=== PATIENT | male | born 1955 | race Caucasian/White ===

== ENCOUNTER 2017-06-09 13:00 | Outpatient (RCR) | payer OTHER, SELFPAY ==
[2017-06-02 13:09] VITALS: BP 121/64; PULSE 57; RESP 18; TEMP 36.7; BMI 31.1
--- NOTE | 2017-06-02 14:04 | PCM.WC.PN ---
(1) Non-pressure chronic ulcer of other part of right foot with fat layer exposed Status: Acute Current Visit: Yes Code(s): L97.512 - Non-pressure chronic ulcer of other part of right foot with fat layer exposed (2) Type 2 diabetes mellitus with foot ulcer Status: Acute Current Visit: Yes Qualifiers: Diabetes mellitus senior living insulin use: unspecified senior living insulin use status Qualified Code(s): E11.621 - Type 2 diabetes mellitus with foot ulcer; L97.509 - Non-pressure chronic ulcer of other part of unspecified foot with unspecified severity Code(s): E11.621 - Type 2 diabetes mellitus with foot ulcer; L97.509 - Non-pressure chronic ulcer of other part of unspecified foot with unspecified severity (3) Type 2 diabetes mellitus with diabetic polyneuropathy Status: Acute Current Visit: Yes Qualifiers: Diabetes mellitus senior living insulin use: unspecified ferry terminal agent insulin use status Qualified Code(s): E11.42 - Type 2 diabetes mellitus with diabetic polyneuropathy Code(s): E11.42 - Type 2 diabetes mellitus with diabetic polyneuropathy Type of Wound Date of Service: 06/02/17 Chief Complaint: non-healing right foot ulcer History of Wound: 62 year old diabetic man with PAD and neuropathy presents with non-healing R foot ulcer. Had multiple other ulcerations that have subsequently healed, and actually had underlying osteomyelitis and underwent HBO treatments at [facility] in [place]. Pt is known to me from wound care visits there. He has one ulceration remaining. He is a patient of Dr. Stephenss, and is seeing him next month. Denies pus, malodor, warmth, pain. Denies N/V/F/C. Has been applying promogran every other day. Notes minimal imrovement, so we are going to switch dressings today. Progress of Wound: Ulceration has changed shape, but not much improvement. - Physical Exam Vital Signs Temp Pulse Resp BP 98.0 F 57 L 18 121/64 H 06/02/17 13:09 06/02/17 13:09 06/02/17 13:09 06/02/17 13:09 General: Alert, Oriented x3, Cooperative, No apparent distress Skin: Ulcer/ Wound - R lateral 5th met head with no pus, no malodor, no increased warmth, no TTP, no erythema. No clinical signs of acute bacterial infection noted. See wound/edema assessment below. Wound Measurements and Assessment WC - Nurse 1 - General Ulcer Measurement Start: 06/02/17 13:02 Freq: Status: Active Protocol: Activity Type Activity Date Activity User E-Sign Co-Sign Detail Recorded Client Recorded Date Recorded By Document 06/02/17 13:09 DV [id number] 06/02/17 13:17 DV 06/02/17 13:09 Wound Center Nurse 1 [Ulcer Assessment] 1-right lateral foot -Combined with other wound No -Current Size (cm) - Length 1.4 -Current Size (cm) - Width 0.7 -Current Size (cm) - Depth 0.7 -Total Square Cm 0.98 -Date of Last Picture (Recall this 06/02/17 field) -Photo Taken Yes -Epithelialization None Present -Tunneling No -Undermining/Tunneling No -Circular Undermining No -Exudate Amt Medium (34-66%) -Exudate Type Yellow/Green -Granulation Quality N/A -Slough/Fibrin Yes -Necrosis Amt Large (67-100%) -Necrotic Tissue Type Adherent Slough -Structure Exposed None/Limited to Skin Breakdown -Texture (Zohreh-wound Skin Appearance) Assessed Callus -Moisture (Zohreh-wound Skin Appearance No Abnormality ) Assessed -Color (Zohreh-wound Skin Appearance) No Abnormality Assessed -Temperature (Zohreh-wound Skin No Abnormality Appearance) (Pt Warm) -Tenderness on Palpation (Zohreh-wound Yes Skin Appearance) -Ulcer Cleansing Rinsed/ Irrigated with Saline -Foul Odor after Cleansing No -Anesthetic Used 4% Lidocaine Solution [Edema Assessment] -Lower Limb Edema Present No WC - Nurse 2 - General Ulcer CM Notes Start: 06/02/17 13:02 Freq: Status: Active Protocol: Activity Type Activity Date Activity User E-Sign Co-Sign Detail Recorded Client Recorded Date Recorded By Document 06/02/17 13:36 MW [id number] 06/02/17 13:40 MW 06/02/17 13:36 Wound Center Nurse 2 [Procedure/Treatment] 1-right lateral foot -Time 13:37 -Correct Patient Yes -Correct Side, Site, Position Yes -Correct Procedure Yes -Procedure Performed Yes -Type of Procedure Debridement -Clinical Debridement Subcutaneous -Post Debridement Size (cm) - Length 0.6 -Post Debridement Size (cm) - Width 0.6 -Post Debridement Size (cm) - Depth 0.2 -Total Square Cm 0.36 -Wound/Ulcer Outcome Not Healed -Ulcer Cleansing Rinsed/ Irrigated with Saline -Foul Odor after Cleansing No -Bioengineered Tissue No -Bleeding Controlled with Pressure -Treatment Response Procedure Tolerated Well [See Physician Procedure note for Specifics] Pain Scale: 0-10 Numeric [Pain] -Is Patient Pain Free? Yes Debridement Note Post-Debridement Measurements/Treatment WC - Nurse 2 - General Ulcer CM Notes Start: 06/02/17 13:02 Freq: Status: Active Protocol: Activity Type Activity Date Activity User E-Sign Co-Sign Detail Recorded Client Recorded Date Recorded By Document 06/02/17 13:36 MW [id number] 06/02/17 13:40 MW 06/02/17 13:36 Wound Center Nurse 2 1-right lateral foot -Time 13:37 -Correct Patient Yes -Correct Side, Site, Position Yes -Correct Procedure Yes -Procedure Performed Yes -Type of Procedure Debridement -Clinical Debridement Subcutaneous -Post Debridement Size (cm) - Length 0.6 -Post Debridement Size (cm) - Width 0.6 -Post Debridement Size (cm) - Depth 0.2 -Total Square Cm 0.36 -Wound/Ulcer Outcome Not Healed -Ulcer Cleansing Rinsed/ Irrigated with Saline -Foul Odor after Cleansing No -Bioengineered Tissue No -Bleeding Controlled with Pressure -Treatment Response Procedure Tolerated Well Pain Scale: 0-10 Numeric Is Patient Pain Free? Yes Wound debrided: R lateral 5th met head Laterality: Right Wound Grade/Stage: Freitas grade 1 DFU Type of Debridement: Excisional debridement Anesthesia Used: 4% Lidocaine Solution Depth: Down to and including healthy tissue, in the subcutaneous layer Percentage of wound debrided: 100 Instrument Used: #15 blade Tissue Removed: fibrous slough, surrounding hyperkeratotic rim Severity: Fat Layer Exposed Amount of bleeding with debridement: Mild Bleeding Controlled with: Pressure, Compression and gauze Patient tolerated procedure well Assessment/Plan Active Problems Non-pressure chronic ulcer of other part of right foot with fat layer exposed (Acute) Type 2 diabetes mellitus with foot ulcer (Acute) Type 2 diabetes mellitus with diabetic polyneuropathy (Acute) Assessment: See diagnoses Plan: SQ/excisional debridement R foot ulcer as above. Ulcer stable. Stop promogran, start medihoney gel BID and cover with dry gauze dressing. Stop optifoam (pt states taking up too much room in his shoe), continue diabetic shoes for offloading. Monitor for redness, pus, malodor, warmth, pain, swelling as well as N/V/F/C and go to the ED with these. Discussed importance of tight blood sugar control, adequate nutrition, especially increased protein intake, to promote healing. Discussed importance of tobacco cessation and smoking's effects on wound healing. Pt continues to smoke tobacco against advice. Return in 1 week, call wound center with questions or problems prior to f/u appt.
--- NOTE | 2017-06-02 14:16 | PN.PCM_ITS ---
(1) Non-pressure chronic ulcer of other part of right foot with fat layer exposed Status: Acute Current Visit: Yes Code(s): L97.512 - Non-pressure chronic ulcer of other part of right foot with fat layer exposed (2) Type 2 diabetes mellitus with foot ulcer Status: Acute Current Visit: Yes Qualifiers: Diabetes mellitus penitentiary insulin use: unspecified penitentiary insulin use status Qualified Code(s): E11.621 - Type 2 diabetes mellitus with foot ulcer; L97.509 - Non-pressure chronic ulcer of other part of unspecified foot with unspecified severity Code(s): E11.621 - Type 2 diabetes mellitus with foot ulcer; L97.509 - Non- pressure chronic ulcer of other part of unspecified foot with unspecified severity (3) Type 2 diabetes mellitus with diabetic polyneuropathy Status: Acute Current Visit: Yes Qualifiers: Diabetes mellitus penitentiary insulin use: unspecified laborer marine terminal insulin use status Qualified Code(s): E11.42 - Type 2 diabetes mellitus with diabetic polyneuropathy Code(s): E11.42 - Type 2 diabetes mellitus with diabetic polyneuropathy Type of Wound Date of Service: 06/02/17 Chief Complaint: non-healing right foot ulcer History of Wound: 62 year old diabetic man with PAD and neuropathy presents with non-healing R foot ulcer. Had multiple other ulcerations that have subsequently healed, and actually had underlying osteomyelitis and underwent HBO treatments at [facility] in [place]. Pt is known to me from wound care visits there. He has one ulceration remaining. He is a patient of Dr. Stephenss, and is seeing him next month. Denies pus, malodor, warmth, pain. Denies N/V/F/C. Has been applying promogran every other day. Notes minimal imrovement, so we are going to switch dressings today. Progress of Wound: Ulceration has changed shape, but not much improvement. - Physical Exam Vital Signs Temp Pulse Resp BP 98.0 F 57 L 18 121/64 H 06/02/17 13:09 06/02/17 13:09 06/02/17 13:09 06/02/17 13:09 General: Alert, Oriented x3, Cooperative, No apparent distress Skin: Ulcer/ Wound - R lateral 5th met head with no pus, no malodor, no increased warmth, no TTP, no erythema. No clinical signs of acute bacterial infection noted. See wound/edema assessment below. Wound Measurements and Assessment WC - Nurse 1 - General Ulcer Measurement Start: 06/02/17 13:02 Freq: Status: Active Protocol: Activity Type Activity Date Activity User E-Sign Co-Sign Detail Recorded Client Recorded Date Recorded By Document 06/02/17 13:09 DV [id number] 06/02/17 13:17 DV 06/02/17 13:09 Wound Center Nurse 1 [Ulcer Assessment] 1-right lateral foot -Combined with other wound No -Current Size (cm) - Length 1.4 -Current Size (cm) - Width 0.7 -Current Size (cm) - Depth 0.7 -Total Square Cm 0.98 -Date of Last Picture (Recall this 06/02/17 field) -Photo Taken Yes -Epithelialization None Present -Tunneling No -Undermining/Tunneling No -Circular Undermining No -Exudate Amt Medium (34-66%) -Exudate Type Yellow/Green -Granulation Quality N/A -Slough/Fibrin Yes -Necrosis Amt Large (67-100%) -Necrotic Tissue Type Adherent Slough -Structure Exposed None/Limited to Skin Breakdown -Texture (Zohreh-wound Skin Appearance) Assessed Callus -Moisture (Zohreh-wound Skin Appearance No Abnormality ) Assessed -Color (Zohreh-wound Skin Appearance) No Abnormality Assessed -Temperature (Zohreh-wound Skin No Abnormality Appearance) (Pt Warm) -Tenderness on Palpation (Zohreh-wound Yes Skin Appearance) -Ulcer Cleansing Rinsed/ Irrigated with Saline -Foul Odor after Cleansing No -Anesthetic Used 4% Lidocaine Solution [Edema Assessment] -Lower Limb Edema Present No WC - Nurse 2 - General Ulcer CM Notes Start: 06/02/17 13:02 Freq: Status: Active Protocol: Activity Type Activity Date Activity User E-Sign Co-Sign Detail Recorded Client Recorded Date Recorded By Document 06/02/17 13:36 MW [id number] 06/02/17 13:40 MW 06/02/17 13:36 Wound Center Nurse 2 [Procedure/Treatment] 1-right lateral foot -Time 13:37 -Correct Patient Yes -Correct Side, Site, Position Yes -Correct Procedure Yes -Procedure Performed Yes -Type of Procedure Debridement -Clinical Debridement Subcutaneous -Post Debridement Size (cm) - Length 0.6 -Post Debridement Size (cm) - Width 0.6 -Post Debridement Size (cm) - Depth 0.2 -Total Square Cm 0.36 -Wound/Ulcer Outcome Not Healed -Ulcer Cleansing Rinsed/ Irrigated with Saline -Foul Odor after Cleansing No -Bioengineered Tissue No -Bleeding Controlled with Pressure -Treatment Response Procedure Tolerated Well [See Physician Procedure note for Specifics] Pain Scale: 0-10 Numeric [Pain] -Is Patient Pain Free? Yes Debridement Note Post-Debridement Measurements/Treatment WC - Nurse 2 - General Ulcer CM Notes Start: 06/02/17 13:02 Freq: Status: Active Protocol: Activity Type Activity Date Activity User E-Sign Co-Sign Detail Recorded Client Recorded Date Recorded By Document 06/02/17 13:36 MW [id number] 06/02/17 13:40 MW 06/02/17 13:36 Wound Center Nurse 2 1-right lateral foot -Time 13:37 -Correct Patient Yes -Correct Side, Site, Position Yes -Correct Procedure Yes -Procedure Performed Yes -Type of Procedure Debridement -Clinical Debridement Subcutaneous -Post Debridement Size (cm) - Length 0.6 -Post Debridement Size (cm) - Width 0.6 -Post Debridement Size (cm) - Depth 0.2 -Total Square Cm 0.36 -Wound/Ulcer Outcome Not Healed -Ulcer Cleansing Rinsed/ Irrigated with Saline -Foul Odor after Cleansing No -Bioengineered Tissue No -Bleeding Controlled with Pressure -Treatment Response Procedure Tolerated Well Pain Scale: 0-10 Numeric Is Patient Pain Free? Yes Wound debrided: R lateral 5th met head Laterality: Right Wound Grade/Stage: Freitas grade 1 DFU Type of Debridement: Excisional debridement Anesthesia Used: 4% Lidocaine Solution Depth: Down to and including healthy tissue, in the subcutaneous layer Percentage of wound debrided: 100 Instrument Used: #15 blade Tissue Removed: fibrous slough, surrounding hyperkeratotic rim Severity: Fat Layer Exposed Amount of bleeding with debridement: Mild Bleeding Controlled with: Pressure, Compression and gauze Patient tolerated procedure well Assessment/Plan Active Problems Non-pressure chronic ulcer of other part of right foot with fat layer exposed ( Acute) Type 2 diabetes mellitus with foot ulcer (Acute) Type 2 diabetes mellitus with diabetic polyneuropathy (Acute) Assessment: See diagnoses Plan: SQ/excisional debridement R foot ulcer as above. Ulcer stable. Stop promogran, start medihoney gel BID and cover with dry gauze dressing. Stop optifoam (pt states taking up too much room in his shoe), continue diabetic shoes for offloading. Monitor for redness, pus, malodor, warmth, pain, swelling as well as N/V/F/C and go to the ED with these. Discussed importance of tight blood sugar control, adequate nutrition, especially increased protein intake, to promote healing. Discussed importance of tobacco cessation and smoking's effects on wound healing. Pt continues to smoke tobacco against advice. Return in 1 week, call wound center with questions or problems prior to f/u appt.
[2017-06-09 13:00] VITALS: BP 133/81; PULSE 64; RESP 16; TEMP 35.7; BMI 31.1
--- NOTE | 2017-06-09 13:34 | PCM.WC.PN ---
(1) Non-pressure chronic ulcer of other part of right foot with fat layer exposed Status: Acute Current Visit: Yes Code(s): L97.512 - Non-pressure chronic ulcer of other part of right foot with fat layer exposed (2) Type 2 diabetes mellitus with foot ulcer Status: Acute Current Visit: Yes Qualifiers: Diabetes mellitus [facility] insulin use: unspecified [facility] insulin use status Qualified Code(s): E11.621 - Type 2 diabetes mellitus with foot ulcer; L97.509 - Non-pressure chronic ulcer of other part of unspecified foot with unspecified severity Code(s): E11.621 - Type 2 diabetes mellitus with foot ulcer; L97.509 - Non-pressure chronic ulcer of other part of unspecified foot with unspecified severity (3) Type 2 diabetes mellitus with diabetic polyneuropathy Status: Acute Current Visit: Yes Qualifiers: Diabetes mellitus [facility] insulin use: unspecified terminal worker insulin use status Qualified Code(s): E11.42 - Type 2 diabetes mellitus with diabetic polyneuropathy Code(s): E11.42 - Type 2 diabetes mellitus with diabetic polyneuropathy Type of Wound Date of Service: 06/09/17 Chief Complaint: non-healing right foot ulcer History of Wound: 62 year old diabetic man with PAD and neuropathy presents with non-healing R foot ulcer. Had multiple other ulcerations that have subsequently healed, and actually had underlying osteomyelitis and underwent HBO treatments at [facility] in [place]. Pt is known to me from wound care visits there. He has one ulceration remaining. He is a patient of Dr. Cevallos, and is seeing him next month. Denies pus, malodor, warmth, pain. Denies N/V/F/C. Has been applying promogran every other day. Notes minimal imrovement, so we are going to switch dressings today. 06/09--Has been applying medihoney gel and dry dressing daily. Notes improvement. Denies N/V/F/C. Denies pus, malodor, warmth, pain, swelling. Notes minimal if any drainage---increase frequency to BID. Progress of Wound: Improved. - Physical Exam Vital Signs Temp Pulse Resp BP 96.2 F L 64 16 133/81 H 06/09/17 13:00 06/09/17 13:00 06/09/17 13:06/09/17 13:00 General: Alert, Oriented x3, Cooperative, No apparent distress Skin: Ulcer/ Wound - R lateral 5th met head with no erythema, no malodor, no pus, no calor, no pain. No clinical signs of acute bacterial infection noted. See wound/edema assessment below. Wound Measurements and Assessment WC - Nurse 1 - General Ulcer Measurement Start: 06/02/17 13:02 Freq: Status: Active Protocol: Activity Type Activity Date Activity User E-Sign Co-Sign Detail Recorded Client Recorded Date Recorded By Document 06/09/17 13:00 JF [id number] 06/09/17 13:04 JF 06/09/17 13:00 Wound Center Nurse 1 [Ulcer Assessment] 1-right lateral foot -Combined with other wound No -Current Size (cm) - Length 0.5 -Current Size (cm) - Width 0.3 -Current Size (cm) - Depth 0.4 -Total Square Cm 0.15 -Photo Taken No -Epithelialization None Present -Tunneling No -Undermining/Tunneling No -Circular Undermining No -Exudate Amt Medium (34-66%) -Exudate Type Serosanguineous -Wound Margin Well Defined, Not Attached -Granulation Amt Small (1-33%) -Granulation Quality [place] -Slough/Fibrin Yes -Necrosis Amt Large (67-100%) -Necrotic Tissue Type Adherent Slough -Structure Exposed N/A -Texture (Zohreh-wound Skin Appearance) Assessed -Moisture (Zohreh-wound Skin Appearance Assessed ) Maceration -Color (Zohreh-wound Skin Appearance) Assessed -Temperature (Zohreh-wound Skin No Abnormality Appearance) (Pt Warm) -Tenderness on Palpation (Zohreh-wound No Skin Appearance) -Ulcer Cleansing Rinsed/ Irrigated with Saline -Foul Odor after Cleansing No -Anesthetic Used 4% Lidocaine Solution [Edema Assessment] -Lower Limb Edema Present No WC - Nurse 2 - General Ulcer CM Notes Start: 06/02/17 13:02 Freq: Status: Active Protocol: Activity Type Activity Date Activity User E-Sign Co-Sign Detail Recorded Client Recorded Date Recorded By Document 06/09/17 13:22 MW [id number] 06/09/17 13:23 MW 06/09/17 13:22 Wound Center Nurse 2 [Procedure/Treatment] 1-right lateral foot -Time 13:22 -Correct Patient Yes -Correct Side, Site, Position Yes -Correct Procedure Yes -Procedure Performed Yes -Type of Procedure Debridement -Clinical Debridement Subcutaneous -Post Debridement Size (cm) - Length 0.5 -Post Debridement Size (cm) - Width 0.3 -Post Debridement Size (cm) - Depth 0.2 -Total Square Cm 0.15 -Wound/Ulcer Outcome Not Healed -Ulcer Cleansing Rinsed/ Irrigated with Saline -Foul Odor after Cleansing No -Bleeding Controlled with Pressure -Treatment Response Procedure Tolerated Well [See Physician Procedure note for Specifics] Pain Scale: 0-10 Numeric [Pain] -Is Patient Pain Free? Yes Debridement Note Post-Debridement Measurements/Treatment WC - Nurse 2 - General Ulcer CM Notes Start: 06/02/17 13:02 Freq: Status: Active Protocol: Activity Type Activity Date Activity User E-Sign Co-Sign Detail Recorded Client Recorded Date Recorded By Document 06/02/17 13:36 MW [id number] 06/02/17 13:40 MW Document 06/09/17 13:22 MW [id number] 06/09/17 13:23 MW 06/02/17 06/09/17 13:36 13:22 Wound Center Nurse 2 1-right lateral foot -Time 13:37 13:22 -Correct Patient Yes Yes -Correct Side, Site, Position Yes Yes -Correct Procedure Yes Yes -Procedure Performed Yes Yes -Type of Procedure Debridement Debridement -Clinical Debridement Subcutaneous Subcutaneous -Post Debridement Size (cm) - Length 0.6 0.5 -Post Debridement Size (cm) - Width 0.6 0.3 -Post Debridement Size (cm) - Depth 0.2 0.2 -Total Square Cm 0.36 0.15 -Wound/Ulcer Outcome Not Healed Not Healed -Ulcer Cleansing Rinsed/ Rinsed/ Irrigated with Irrigated with Saline Saline -Foul Odor after Cleansing No No -Bioengineered Tissue No -Bleeding Controlled with Pressure Pressure -Treatment Response Procedure Procedure Tolerated Well Tolerated Well Pain Scale: 0-10 Numeric Is Patient Pain Free? Yes Yes Wound debrided: R lateral 5th met head Laterality: Right Wound Grade/Stage: Freitas grade 1 full thickness DFU Type of Debridement: Excisional debridement Anesthesia Used: 4% Lidocaine Solution Depth: Down to and including healthy tissue, in the subcutaneous layer Percentage of wound debrided: 100 Instrument Used: #15 blade Tissue Removed: fibrous slough Severity: Fat Layer Exposed Amount of bleeding with debridement: Mild Bleeding Controlled with: Pressure, Compression and gauze Patient tolerated procedure well Assessment/Plan Active Problems Non-pressure chronic ulcer of other part of right foot with fat layer exposed (Acute) Type 2 diabetes mellitus with foot ulcer (Acute) Type 2 diabetes mellitus with diabetic polyneuropathy (Acute) Assessment: See diagnoses Plan: SQ/excisional debridement R foot ulcer as above. Improved. Cont medihoney gel -- inc to BID as previously directed and cover with dry gauze dressing. Continue diabetic shoes for offloading. Monitor for redness, pus, malodor, warmth, pain, swelling as well as N/V/F/C and go to the ED with these. Discussed importance of tight blood sugar control, adequate nutrition, especially increased protein intake, to promote healing. Discussed importance of tobacco cessation and smoking's effects on wound healing. Pt continues to smoke tobacco against advice. Return in 1 week, call wound center with questions or problems prior to f/u appt.
--- NOTE | 2017-06-09 13:43 | PN.PCM_ITS ---
(1) Non-pressure chronic ulcer of other part of right foot with fat layer exposed Status: Acute Current Visit: Yes Code(s): L97.512 - Non-pressure chronic ulcer of other part of right foot with fat layer exposed (2) Type 2 diabetes mellitus with foot ulcer Status: Acute Current Visit: Yes Qualifiers: Diabetes mellitus prison insulin use: unspecified prison insulin use status Qualified Code(s): E11.621 - Type 2 diabetes mellitus with foot ulcer; L97.509 - Non-pressure chronic ulcer of other part of unspecified foot with unspecified severity Code(s): E11.621 - Type 2 diabetes mellitus with foot ulcer; L97.509 - Non- pressure chronic ulcer of other part of unspecified foot with unspecified severity (3) Type 2 diabetes mellitus with diabetic polyneuropathy Status: Acute Current Visit: Yes Qualifiers: Diabetes mellitus prison insulin use: unspecified technician terminal and repeater insulin use status Qualified Code(s): E11.42 - Type 2 diabetes mellitus with diabetic polyneuropathy Code(s): E11.42 - Type 2 diabetes mellitus with diabetic polyneuropathy Type of Wound Date of Service: 06/09/17 Chief Complaint: non-healing right foot ulcer History of Wound: 62 year old diabetic man with PAD and neuropathy presents with non-healing R foot ulcer. Had multiple other ulcerations that have subsequently healed, and actually had underlying osteomyelitis and underwent HBO treatments at [facility] in [place]. Pt is known to me from wound care visits there. He has one ulceration remaining. He is a patient of Dr. Cevallos, and is seeing him next month. Denies pus, malodor, warmth, pain. Denies N/V/F/C. Has been applying promogran every other day. Notes minimal imrovement, so we are going to switch dressings today. 06/09--Has been applying medihoney gel and dry dressing daily. Notes improvement. Denies N/V/F/C. Denies pus, malodor, warmth, pain, swelling. Notes minimal if any drainage--- increase frequency to BID. Progress of Wound: Improved. - Physical Exam Vital Signs Temp Pulse Resp BP 96.2 F L 64 16 133/81 H 06/09/17 13:00 06/09/17 13:00 06/09/17 13:06/09/17 13:00 General: Alert, Oriented x3, Cooperative, No apparent distress Skin: Ulcer/ Wound - R lateral 5th met head with no erythema, no malodor, no pus , no calor, no pain. No clinical signs of acute bacterial infection noted. See wound/edema assessment below. Wound Measurements and Assessment WC - Nurse 1 - General Ulcer Measurement Start: 06/02/17 13:02 Freq: Status: Active Protocol: Activity Type Activity Date Activity User E-Sign Co-Sign Detail Recorded Client Recorded Date Recorded By Document 06/09/17 13:00 JF [id number] 06/09/17 13:04 JF 06/09/17 13:00 Wound Center Nurse 1 [Ulcer Assessment] 1-right lateral foot -Combined with other wound No -Current Size (cm) - Length 0.5 -Current Size (cm) - Width 0.3 -Current Size (cm) - Depth 0.4 -Total Square Cm 0.15 -Photo Taken No -Epithelialization None Present -Tunneling No -Undermining/Tunneling No -Circular Undermining No -Exudate Amt Medium (34-66%) -Exudate Type Serosanguineous -Wound Margin Well Defined, Not Attached -Granulation Amt Small (1-33%) -Granulation Quality [place] -Slough/Fibrin Yes -Necrosis Amt Large (67-100%) -Necrotic Tissue Type Adherent Slough -Structure Exposed N/A -Texture (Zohreh-wound Skin Appearance) Assessed -Moisture (Zohreh-wound Skin Appearance Assessed ) Maceration -Color (Zohreh-wound Skin Appearance) Assessed -Temperature (Zohreh-wound Skin No Abnormality Appearance) (Pt Warm) -Tenderness on Palpation (Zohreh-wound No Skin Appearance) -Ulcer Cleansing Rinsed/ Irrigated with Saline -Foul Odor after Cleansing No -Anesthetic Used 4% Lidocaine Solution [Edema Assessment] -Lower Limb Edema Present No WC - Nurse 2 - General Ulcer CM Notes Start: 06/02/17 13:02 Freq: Status: Active Protocol: Activity Type Activity Date Activity User E-Sign Co-Sign Detail Recorded Client Recorded Date Recorded By Document 06/09/17 13:22 MW [id number] 06/09/17 13:23 MW 06/09/17 13:22 Wound Center Nurse 2 [Procedure/Treatment] 1-right lateral foot -Time 13:22 -Correct Patient Yes -Correct Side, Site, Position Yes -Correct Procedure Yes -Procedure Performed Yes -Type of Procedure Debridement -Clinical Debridement Subcutaneous -Post Debridement Size (cm) - Length 0.5 -Post Debridement Size (cm) - Width 0.3 -Post Debridement Size (cm) - Depth 0.2 -Total Square Cm 0.15 -Wound/Ulcer Outcome Not Healed -Ulcer Cleansing Rinsed/ Irrigated with Saline -Foul Odor after Cleansing No -Bleeding Controlled with Pressure -Treatment Response Procedure Tolerated Well [See Physician Procedure note for Specifics] Pain Scale: 0-10 Numeric [Pain] -Is Patient Pain Free? Yes Debridement Note Post-Debridement Measurements/Treatment WC - Nurse 2 - General Ulcer CM Notes Start: 06/02/17 13:02 Freq: Status: Active Protocol: Activity Type Activity Date Activity User E-Sign Co-Sign Detail Recorded Client Recorded Date Recorded By Document 06/02/17 13:36 MW [id number] 06/02/17 13:40 MW Document 06/09/17 13:22 MW [id number] 06/09/17 13:23 MW 06/02/17 06/09/17 13:36 13:22 Wound Center Nurse 2 1-right lateral foot -Time 13:37 13:22 -Correct Patient Yes Yes -Correct Side, Site, Position Yes Yes -Correct Procedure Yes Yes -Procedure Performed Yes Yes -Type of Procedure Debridement Debridement -Clinical Debridement Subcutaneous Subcutaneous -Post Debridement Size (cm) - Length 0.6 0.5 -Post Debridement Size (cm) - Width 0.6 0.3 -Post Debridement Size (cm) - Depth 0.2 0.2 -Total Square Cm 0.36 0.15 -Wound/Ulcer Outcome Not Healed Not Healed -Ulcer Cleansing Rinsed/ Rinsed/ Irrigated with Irrigated with Saline Saline -Foul Odor after Cleansing No No -Bioengineered Tissue No -Bleeding Controlled with Pressure Pressure -Treatment Response Procedure Procedure Tolerated Well Tolerated Well Pain Scale: 0-10 Numeric Is Patient Pain Free? Yes Yes Wound debrided: R lateral 5th met head Laterality: Right Wound Grade/Stage: Freitas grade 1 full thickness DFU Type of Debridement: Excisional debridement Anesthesia Used: 4% Lidocaine Solution Depth: Down to and including healthy tissue, in the subcutaneous layer Percentage of wound debrided: 100 Instrument Used: #15 blade Tissue Removed: fibrous slough Severity: Fat Layer Exposed Amount of bleeding with debridement: Mild Bleeding Controlled with: Pressure, Compression and gauze Patient tolerated procedure well Assessment/Plan Active Problems Non-pressure chronic ulcer of other part of right foot with fat layer exposed ( Acute) Type 2 diabetes mellitus with foot ulcer (Acute) Type 2 diabetes mellitus with diabetic polyneuropathy (Acute) Assessment: See diagnoses Plan: SQ/excisional debridement R foot ulcer as above. Improved. Cont medihoney gel -- inc to BID as previously directed and cover with dry gauze dressing. Continue diabetic shoes for offloading. Monitor for redness, pus, malodor, warmth, pain, swelling as well as N/V/F/C and go to the ED with these. Discussed importance of tight blood sugar control, adequate nutrition, especially increased protein intake, to promote healing. Discussed importance of tobacco cessation and smoking's effects on wound healing. Pt continues to smoke tobacco against advice. Return in 1 week, call wound center with questions or problems prior to f/u appt.
== END 2017-06-10 23:59 ==
LOC: WC 13:00
PROVIDERS: Family Provider Family Medicine; PCP Family Medicine; Visit Provider Podiatrist Foot & Ankle Surgery
DX: E11.621 Type 2 diabetes mellitus with foot ulcer (principal); L97.512 Non-pressure chronic ulcer of other part of right foot with fat layer exposed; E11.42 Type 2 diabetes mellitus with diabetic polyneuropathy; E11.51 Type 2 diabetes mellitus with diabetic peripheral angiopathy without gangrene
CPT/HCPCS: 11042; 99203; G0463

== ENCOUNTER 2017-07-07 13:00 | Outpatient (RCR) | payer OTHER, SELFPAY ==
[2017-06-11 01:15] VITALS: PULSE 64; RESP 16; TEMP 35.7
[2017-06-16 13:07] VITALS: BP 125/65; PULSE 68; RESP 18; TEMP 36.6
--- NOTE | 2017-06-16 14:23 | PCM.WC.PN ---
(1) Non-pressure chronic ulcer of other part of right foot with fat layer exposed Status: Acute Current Visit: Yes Code(s): L97.512 - Non-pressure chronic ulcer of other part of right foot with fat layer exposed (2) Type 2 diabetes mellitus with foot ulcer Status: Acute Current Visit: Yes Qualifiers: Diabetes mellitus half-way insulin use: unspecified half-way insulin use status Code(s): E11.621 - Type 2 diabetes mellitus with foot ulcer; L97.509 - Non-pressure chronic ulcer of other part of unspecified foot with unspecified severity (3) Type 2 diabetes mellitus with diabetic polyneuropathy Status: Chronic Current Visit: Yes Qualifiers: 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 Had multiple other ulcerations that have subsequently healed, and actually had underlying osteomyelitis and underwent HBO treatments at [facility] in [place]. Pt is known to me from wound care visits there. He has one ulceration remaining. He is a patient of Dr. Stephenss, and is seeing him next month. Denies pus, malodor, warmth, pain. Denies N/V/F/C. Has been applying promogran every other day. Notes minimal imrovement, so we are going to switch dressings today. 06/09--Has been applying medihoney gel and dry dressing daily. Notes improvement. Denies N/V/F/C. Denies pus, malodor, warmth, pain, swelling. Notes minimal if any drainage---increase frequency to BID. 06/16--Has been applying medihoney gel and dry dressing twice daily. Notes improvement. Denies N/V/F/C. Denies pus, malodor, warmth, pain, swelling. Notes no drainage---increase frequency from BID to TID. Progress of Wound: Improved. - Physical Exam Vital Signs Temp Pulse Resp BP 97.8 F 68 18 125/65 H 06/16/17 13:07 06/16/17 13:07 06/16/17 13:07 06/16/17 13:07 General: Alert, Oriented x3, Cooperative, No apparent distress Skin: Ulcer/ Wound - R lateral 5th met head with no erythema, no malodor, no pus, no pain, no calor. No clinical signs of acute bacterial infection noted. See wound/edema assessment below. Wound Measurements and Assessment WC - Nurse 1 - General Ulcer Measurement Start: 06/16/17 13:07 Freq: Status: Active Protocol: Activity Type Activity Date Activity User E-Sign Co-Sign Detail Recorded Client Recorded Date Recorded By Document 06/16/17 13:07 DL [id number] 06/16/17 13:14 DL 06/16/17 13:07 Wound Center Nurse 1 [Ulcer Assessment] 1-right lateral foot -Current Size (cm) - Length 0.2 -Current Size (cm) - Width 0.5 -Current Size (cm) - Depth 0.1 -Total Square Cm 0.10 -Photo Taken No -Exudate Amt None Present (0 %) -Wound Margin Thickened -Granulation Amt Small (1-33%) -Granulation Quality Pale -Necrosis Amt Small (1-33%) -Necrotic Tissue Type Adherent Slough -Structure Exposed N/A -Texture (Zohreh-wound Skin Appearance) Callus -Moisture (Zohreh-wound Skin Appearance Dry/Scaly ) -Color (Zohreh-wound Skin Appearance) No Abnormality -Temperature (Zohreh-wound Skin No Abnormality Appearance) (Pt Warm) -Ulcer Cleansing Rinsed/ Irrigated with Saline -Foul Odor after Cleansing No -Anesthetic Used 4% Lidocaine Solution WC - Nurse 2 - General Ulcer CM Notes Start: 06/16/17 13:07 Freq: Status: Active Protocol: Activity Type Activity Date Activity User E-Sign Co-Sign Detail Recorded Client Recorded Date Recorded By Document 06/16/17 13:25 MW [id number] 06/16/17 13:29 MW 06/16/17 13:25 Wound Center Nurse 2 [Procedure/Treatment] -Time 13:25 -Correct Patient Yes -Correct Side, Site, Position Yes -Correct Procedure Yes -Procedure Performed Yes -Type of Procedure Debridement -Clinical Debridement Selective -Post Debridement Size (cm) - Length 0.4 -Post Debridement Size (cm) - Width 0.2 -Post Debridement Size (cm) - Depth 0.2 -Total Square Cm 0.08 -Wound/Ulcer Outcome Not Healed -Ulcer Cleansing Rinsed/ Irrigated with Saline -Foul Odor after Cleansing No -Bioengineered Tissue No -Bleeding Controlled with Pressure -Treatment Response Procedure Tolerated Well [See Physician Procedure note for Specifics] Pain Scale: 0-10 Numeric [Pain] -Is Patient Pain Free? Yes Debridement Note Post-Debridement Measurements/Treatment WC - Nurse 2 - General Ulcer CM Notes Start: 06/16/17 13:07 Freq: Status: Active Protocol: Activity Type Activity Date Activity User E-Sign Co-Sign Detail Recorded Client Recorded Date Recorded By Document 06/16/17 13:25 MW [id number] 06/16/17 13:29 MW 06/16/17 13:25 Wound Center Nurse 2 1-right lateral foot -Time 13:25 -Correct Patient Yes -Correct Side, Site, Position Yes -Correct Procedure Yes -Procedure Performed Yes -Type of Procedure Debridement -Clinical Debridement Selective -Post Debridement Size (cm) - Length 0.4 -Post Debridement Size (cm) - Width 0.2 -Post Debridement Size (cm) - Depth 0.2 -Total Square Cm 0.08 -Wound/Ulcer Outcome Not Healed -Ulcer Cleansing Rinsed/ Irrigated with Saline -Foul Odor after Cleansing No -Bioengineered Tissue No -Bleeding Controlled with Pressure -Treatment Response Procedure Tolerated Well Pain Scale: 0-10 Numeric Is Patient Pain Free? Yes Wound debrided: R foot 5th met head Laterality: Right Wound Grade/Stage: Freitas grade 1 full thickness DFU Type of Debridement: Selective debridement Anesthesia Used: 4% Lidocaine Solution Depth: Down to and including healthy tissue, in the subcutaneous layer Percentage of wound debrided: 100 Instrument Used: - - 1 mm curette Tissue Removed: fibrous slough Severity: Limited To Skin Breakdown Amount of bleeding with debridement: None Bleeding Controlled with: - - n/a Patient tolerated procedure well Assessment/Plan Active Problems Non-pressure chronic ulcer of other part of right foot with fat layer exposed (Acute) Type 2 diabetes mellitus with foot ulcer (Acute) Type 2 diabetes mellitus with diabetic polyneuropathy (Chronic) Assessment: See diagnoses Plan: Selective/medical debridement R foot ulcer as above. Improved. Cont medihoney gel -- inc to TID and cover with dry gauze dressing. Continue diabetic shoes for offloading. Plan to switch to Regranex after next visit if cost is not prohibitive. Monitor for redness, pus, malodor, warmth, pain, swelling as well as N/V/F/C and go to the ED with these. Discussed importance of tight blood sugar control, adequate nutrition, especially increased protein intake, to promote healing. Discussed importance of tobacco cessation and smoking's effects on wound healing. Pt continues to smoke tobacco against advice. Return in 1 week, call wound center with questions or problems prior to f/u appt.
--- NOTE | 2017-06-16 14:26 | PN.PCM_ITS ---
(1) Non-pressure chronic ulcer of other part of right foot with fat layer exposed Status: Acute Current Visit: Yes Code(s): L97.512 - Non-pressure chronic ulcer of other part of right foot with fat layer exposed (2) Type 2 diabetes mellitus with foot ulcer Status: Acute Current Visit: Yes Qualifiers: Diabetes mellitus alf insulin use: unspecified alf insulin use status Code(s): E11.621 - Type 2 diabetes mellitus with foot ulcer; L97.509 - Non- pressure chronic ulcer of other part of unspecified foot with unspecified severity (3) Type 2 diabetes mellitus with diabetic polyneuropathy Status: Chronic Current Visit: Yes Qualifiers: Diabetes mellitus alf insulin use: unspecified terminal manager insulin use status Code(s): E11.42 - Type 2 diabetes mellitus with diabetic polyneuropathy Type of Wound Date of Service: 06/16/17 Chief Complaint: non-healing right foot ulcer History of Wound: 62 year old diabetic man with PAD and neuropathy presents with non-healing R foot ulcer. Had multiple other ulcerations that have subsequently healed, and actually had underlying osteomyelitis and underwent HBO treatments at [facility] in [place]. Pt is known to me from wound care visits there. He has one ulceration remaining. He is a patient of Dr. Stephenss, and is seeing him next month. Denies pus, malodor, warmth, pain. Denies N/V/F/C. Has been applying promogran every other day. Notes minimal imrovement, so we are going to switch dressings today. 06/09--Has been applying medihoney gel and dry dressing daily. Notes improvement. Denies N/V/F/C. Denies pus, malodor, warmth, pain, swelling. Notes minimal if any drainage--- increase frequency to BID. 06/16--Has been applying medihoney gel and dry dressing twice daily. Notes improvement. Denies N/V/F/C. Denies pus, malodor, warmth, pain, swelling. Notes no drainage---increase frequency from BID to TID. Progress of Wound: Improved. - Physical Exam Vital Signs Temp Pulse Resp BP 97.8 F 68 18 125/65 H 06/16/17 13:07 06/16/17 13:07 06/16/17 13:07 06/16/17 13:07 General: Alert, Oriented x3, Cooperative, No apparent distress Skin: Ulcer/ Wound - R lateral 5th met head with no erythema, no malodor, no pus , no pain, no calor. No clinical signs of acute bacterial infection noted. See wound/edema assessment below. Wound Measurements and Assessment WC - Nurse 1 - General Ulcer Measurement Start: 06/16/17 13:07 Freq: Status: Active Protocol: Activity Type Activity Date Activity User E-Sign Co-Sign Detail Recorded Client Recorded Date Recorded By Document 06/16/17 13:07 DL [id number] 06/16/17 13:14 DL 06/16/17 13:07 Wound Center Nurse 1 [Ulcer Assessment] 1-right lateral foot -Current Size (cm) - Length 0.2 -Current Size (cm) - Width 0.5 -Current Size (cm) - Depth 0.1 -Total Square Cm 0.10 -Photo Taken No -Exudate Amt None Present (0 %) -Wound Margin Thickened -Granulation Amt Small (1-33%) -Granulation Quality Pale -Necrosis Amt Small (1-33%) -Necrotic Tissue Type Adherent Slough -Structure Exposed N/A -Texture (Zohreh-wound Skin Appearance) Callus -Moisture (Zohrhe-wound Skin Appearance Dry/Scaly ) -Color (Zohreh-wound Skin Appearance) No Abnormality -Temperature (Zohreh-wound Skin No Abnormality Appearance) (Pt Warm) -Ulcer Cleansing Rinsed/ Irrigated with Saline -Foul Odor after Cleansing No -Anesthetic Used 4% Lidocaine Solution WC - Nurse 2 - General Ulcer CM Notes Start: 06/16/17 13:07 Freq: Status: Active Protocol: Activity Type Activity Date Activity User E-Sign Co-Sign Detail Recorded Client Recorded Date Recorded By Document 06/16/17 13:25 MW [id number] 06/16/17 13:29 MW 06/16/17 13:25 Wound Center Nurse 2 [Procedure/Treatment] -Time 13:25 -Correct Patient Yes -Correct Side, Site, Position Yes -Correct Procedure Yes -Procedure Performed Yes -Type of Procedure Debridement -Clinical Debridement Selective -Post Debridement Size (cm) - Length 0.4 -Post Debridement Size (cm) - Width 0.2 -Post Debridement Size (cm) - Depth 0.2 -Total Square Cm 0.08 -Wound/Ulcer Outcome Not Healed -Ulcer Cleansing Rinsed/ Irrigated with Saline -Foul Odor after Cleansing No -Bioengineered Tissue No -Bleeding Controlled with Pressure -Treatment Response Procedure Tolerated Well [See Physician Procedure note for Specifics] Pain Scale: 0-10 Numeric [Pain] -Is Patient Pain Free? Yes Debridement Note Post-Debridement Measurements/Treatment WC - Nurse 2 - General Ulcer CM Notes Start: 06/16/17 13:07 Freq: Status: Active Protocol: Activity Type Activity Date Activity User E-Sign Co-Sign Detail Recorded Client Recorded Date Recorded By Document 06/16/17 13:25 MW [id number] 06/16/17 13:29 MW 06/16/17 13:25 Wound Center Nurse 2 1-right lateral foot -Time 13:25 -Correct Patient Yes -Correct Side, Site, Position Yes -Correct Procedure Yes -Procedure Performed Yes -Type of Procedure Debridement -Clinical Debridement Selective -Post Debridement Size (cm) - Length 0.4 -Post Debridement Size (cm) - Width 0.2 -Post Debridement Size (cm) - Depth 0.2 -Total Square Cm 0.08 -Wound/Ulcer Outcome Not Healed -Ulcer Cleansing Rinsed/ Irrigated with Saline -Foul Odor after Cleansing No -Bioengineered Tissue No -Bleeding Controlled with Pressure -Treatment Response Procedure Tolerated Well Pain Scale: 0-10 Numeric Is Patient Pain Free? Yes Wound debrided: R foot 5th met head Laterality: Right Wound Grade/Stage: Freitas grade 1 full thickness DFU Type of Debridement: Selective debridement Anesthesia Used: 4% Lidocaine Solution Depth: Down to and including healthy tissue, in the subcutaneous layer Percentage of wound debrided: 100 Instrument Used: - - 1 mm curette Tissue Removed: fibrous slough Severity: Limited To Skin Breakdown Amount of bleeding with debridement: None Bleeding Controlled with: - - n/a Patient tolerated procedure well Assessment/Plan Active Problems Non-pressure chronic ulcer of other part of right foot with fat layer exposed ( Acute) Type 2 diabetes mellitus with foot ulcer (Acute) Type 2 diabetes mellitus with diabetic polyneuropathy (Chronic) Assessment: See diagnoses Plan: Selective/medical debridement R foot ulcer as above. Improved. Cont medihoney gel -- inc to TID and cover with dry gauze dressing. Continue diabetic shoes for offloading. Plan to switch to Regranex after next visit if cost is not prohibitive. Monitor for redness, pus, malodor, warmth, pain, swelling as well as N/V/F/C and go to the ED with these. Discussed importance of tight blood sugar control, adequate nutrition, especially increased protein intake, to promote healing. Discussed importance of tobacco cessation and smoking's effects on wound healing. Pt continues to smoke tobacco against advice. Return in 1 week, call wound center with questions or problems prior to f/u appt.
[2017-06-23 13:00] VITALS: BP 124/77; PULSE 110; RESP 16; TEMP 35.5
--- NOTE | 2017-06-23 15:26 | PCM.WC.PN ---
(1) Non-pressure chronic ulcer of other part of right foot with fat layer exposed Status: Acute Current Visit: Yes Code(s): L97.512 - Non-pressure chronic ulcer of other part of right foot with fat layer exposed (2) Type 2 diabetes mellitus with foot ulcer Status: Acute Current Visit: Yes Qualifiers: Diabetes mellitus mcfp insulin use: unspecified mcfp insulin use status Code(s): E11.621 - Type 2 diabetes mellitus with foot ulcer; L97.509 - Non-pressure chronic ulcer of other part of unspecified foot with unspecified severity (3) Type 2 diabetes mellitus with diabetic polyneuropathy Status: Chronic Current Visit: Yes Qualifiers: Diabetes mellitus intermodal dispatcher insulin use: unspecified mcfp insulin use status Code(s): E11.42 - Type 2 diabetes mellitus with diabetic polyneuropathy Type of Wound Date of Service: 06/23/17 Chief Complaint: non-healing right foot ulcer History of Wound: 62 year old diabetic man with PAD and neuropathy presents with non-healing R foot ulcer. Had multiple other ulcerations that have subsequently healed, and actually had underlying osteomyelitis and underwent HBO treatments at [facility] in [place]. Pt is known to me from wound care visits there. He has one ulceration remaining. He is a patient of Dr. Stephenss, and is seeing him next month. Denies pus, malodor, warmth, pain. Denies N/V/F/C. Has been applying promogran every other day. Notes minimal imrovement, so we are going to switch dressings today. 06/09--Has been applying medihoney gel and dry dressing daily. Notes improvement. Denies N/V/F/C. Denies pus, malodor, warmth, pain, swelling. Notes minimal if any drainage---increase frequency to BID. 06/16--Has been applying medihoney gel and dry dressing twice daily. Notes improvement. Denies N/V/F/C. Denies pus, malodor, warmth, pain, swelling. Notes no drainage---increase frequency from BID to TID. 06/23--Used medihoney until 2-3 days ago when he started Regranex x 12 hours in the AM and lightly moistened gauze dressing at night. Ulcer stable. Denies s/s of acute bacterial infection R foot. Progress of Wound: Stable. - Physical Exam Vital Signs Temp Pulse Resp BP 96 F L 110 H 16 124/77 H 06/23/17 13:00 06/23/17 13:00 06/23/17 13:00 06/23/17 13:00 General: Alert, Oriented x3, Cooperative, No apparent distress Skin: Ulcer/ Wound - R lateral 5th met head ulceration with no erythema, no malodor, no pus, no calor. No clinical signs of acute bacterial infection noted. See nurses wound/edema assessment below. Wound Measurements and Assessment WC - Nurse 1 - General Ulcer Measurement Start: 06/16/17 13:07 Freq: Status: Active Protocol: Activity Type Activity Date Activity User E-Sign Co-Sign Detail Recorded Client Recorded Date Recorded By Document 06/23/17 13:00 [facility] [id number] 06/23/17 13:06 [facility] 06/23/17 13:00 Wound Center Nurse 1 [Ulcer Assessment] 1-right lateral foot -Combined with other wound No -Current Size (cm) - Length 0.4 -Current Size (cm) - Width 0.1 -Current Size (cm) - Depth 0.2 -Total Square Cm 0.04 -Photo Taken No -Epithelialization None Present -Tunneling No -Undermining/Tunneling Yes -Undermining/Tunneling Starts (O' 6 clock) -Undermining/Tunneling Ends (O'clock) 2 -Maximum Distance (cm) 0.2 -Exudate Amt Small (1-33%) -Exudate Type Serous -Wound Margin Distinct, Outline Attached -Granulation Amt None Present (0 %) -Slough/Fibrin Yes -Necrosis Amt Large (67-100%) -Necrotic Tissue Type Adherent Slough -Structure Exposed N/A -Texture (Zohreh-wound Skin Appearance) Callus -Moisture (Zohreh-wound Skin Appearance Dry/Scaly ) -Color (Zohreh-wound Skin Appearance) Assessed -Temperature (Zohreh-wound Skin No Abnormality Appearance) (Pt Warm) -Tenderness on Palpation (Zohreh-wound No Skin Appearance) -Ulcer Cleansing Rinsed/ Irrigated with Saline -Foul Odor after Cleansing No -Anesthetic Used 4% Lidocaine Solution TONE - Nurse 2 - General Ulcer CM Notes Start: 06/16/17 13:07 Freq: Status: Active Protocol: Activity Type Activity Date Activity User E-Sign Co-Sign Detail Recorded Client Recorded Date Recorded By Document 06/23/17 13:37 MW [id number] 06/23/17 13:38 MW 06/23/17 13:37 Wound Center Nurse 2 [Procedure/Treatment] -Time 13:38 -Correct Patient Yes -Correct Side, Site, Position Yes -Correct Procedure Yes -Procedure Performed Yes -Type of Procedure Debridement -Clinical Debridement Subcutaneous -Post Debridement Size (cm) - Length 0.4 -Post Debridement Size (cm) - Width 0.3 -Post Debridement Size (cm) - Depth 0.2 -Total Square Cm 0.12 -Wound/Ulcer Outcome Not Healed -Ulcer Cleansing Rinsed/ Irrigated with Saline -Foul Odor after Cleansing No -Bioengineered Tissue No -Bleeding Controlled with Pressure -Treatment Response Procedure Tolerated Well [See Physician Procedure note for Specifics] Pain Scale: 0-10 Numeric [Pain] -Is Patient Pain Free? Yes Debridement Note Post-Debridement Measurements/Treatment WC - Nurse 2 - General Ulcer CM Notes Start: 06/16/17 13:07 Freq: Status: Active Protocol: Activity Type Activity Date Activity User E-Sign Co-Sign Detail Recorded Client Recorded Date Recorded By Document 06/16/17 13:25 MW [id number] 06/16/17 13:29 MW Document 06/23/17 13:37 MW [id number] 06/23/17 13:38 MW 06/16/17 06/23/17 13:25 13:37 Wound Center Nurse 2 1-right lateral foot -Time 13:25 13:38 -Correct Patient Yes Yes -Correct Side, Site, Position Yes Yes -Correct Procedure Yes Yes -Procedure Performed Yes Yes -Type of Procedure Debridement Debridement -Clinical Debridement Selective Subcutaneous -Post Debridement Size (cm) - Length 0.4 0.4 -Post Debridement Size (cm) - Width 0.2 0.3 -Post Debridement Size (cm) - Depth 0.2 0.2 -Total Square Cm 0.08 0.12 -Wound/Ulcer Outcome Not Healed Not Healed -Ulcer Cleansing Rinsed/ Rinsed/ Irrigated with Irrigated with Saline Saline -Foul Odor after Cleansing No No -Bioengineered Tissue No No -Bleeding Controlled with Pressure Pressure -Treatment Response Procedure Procedure Tolerated Well Tolerated Well Pain Scale: 0-10 Numeric Is Patient Pain Free? Yes Yes Wound debrided: R foot Laterality: Right Wound Grade/Stage: bailey grade 1 DFU Type of Debridement: Excisional debridement Anesthesia Used: 4% Lidocaine Solution Depth: Down to and including healthy tissue, in the subcutaneous layer Percentage of wound debrided: 100 Instrument Used: 3mm curette Tissue Removed: fibrous slough, surrounding hyperkeratotic tissue Severity: Fat Layer Exposed Amount of bleeding with debridement: Mild Bleeding Controlled with: Pressure, Compression and gauze Patient tolerated procedure well Assessment/Plan Active Problems Non-pressure chronic ulcer of other part of right foot with fat layer exposed (Acute) Type 2 diabetes mellitus with foot ulcer (Acute) Type 2 diabetes mellitus with diabetic polyneuropathy (Chronic) Assessment: See diagnoses Plan: SQ/excisional debridement of R foot ulcer as above. Stable. Continue diabetic shoes for offloading. Cont Regranex q12h then medihoney q12h. Monitor for redness, pus, malodor, warmth, pain, swelling as well as N/V/F/C and go to the ED with these. Discussed importance of tight blood sugar control, adequate nutrition, especially increased protein intake, to promote healing. Discussed importance of tobacco cessation and smoking's effects on wound healing. Pt continues to smoke tobacco against advice. Return in 1 week, call wound center with questions or problems prior to f/u appt.
--- NOTE | 2017-06-23 15:33 | PN.PCM_ITS ---
(1) Non-pressure chronic ulcer of other part of right foot with fat layer exposed Status: Acute Current Visit: Yes Code(s): L97.512 - Non-pressure chronic ulcer of other part of right foot with fat layer exposed (2) Type 2 diabetes mellitus with foot ulcer Status: Acute Current Visit: Yes Qualifiers: Diabetes mellitus halfway insulin use: unspecified halfway insulin use status Code(s): E11.621 - Type 2 diabetes mellitus with foot ulcer; L97.509 - Non- pressure chronic ulcer of other part of unspecified foot with unspecified severity (3) Type 2 diabetes mellitus with diabetic polyneuropathy Status: Chronic Current Visit: Yes Qualifiers: Diabetes mellitus halfway insulin use: unspecified exterminator helper insulin use status Code(s): E11.42 - Type 2 diabetes mellitus with diabetic polyneuropathy Type of Wound Date of Service: 06/23/17 Chief Complaint: non-healing right foot ulcer History of Wound: 62 year old diabetic man with PAD and neuropathy presents with non-healing R foot ulcer. Had multiple other ulcerations that have subsequently healed, and actually had underlying osteomyelitis and underwent HBO treatments at [facility] in [place]. Pt is known to me from wound care visits there. He has one ulceration remaining. He is a patient of Dr. Stephenss, and is seeing him next month. Denies pus, malodor, warmth, pain. Denies N/V/F/C. Has been applying promogran every other day. Notes minimal imrovement, so we are going to switch dressings today. 06/09--Has been applying medihoney gel and dry dressing daily. Notes improvement. Denies N/V/F/C. Denies pus, malodor, warmth, pain, swelling. Notes minimal if any drainage--- increase frequency to BID. 06/16--Has been applying medihoney gel and dry dressing twice daily. Notes improvement. Denies N/V/F/C. Denies pus, malodor, warmth, pain, swelling. Notes no drainage---increase frequency from BID to TID. 06/23--Used medihoney until 2-3 days ago when he started Regranex x 12 hours in the AM and lightly moistened gauze dressing at night. Ulcer stable. Denies s/s of acute bacterial infection R foot. Progress of Wound: Stable. - Physical Exam Vital Signs Temp Pulse Resp BP 96 F L 110 H 16 124/77 H 06/23/17 13:00 06/23/17 13:00 06/23/17 13:00 06/23/17 13:00 General: Alert, Oriented x3, Cooperative, No apparent distress Skin: Ulcer/ Wound - R lateral 5th met head ulceration with no erythema, no malodor, no pus, no calor. No clinical signs of acute bacterial infection noted. See nurse?s wound/edema assessment below. Wound Measurements and Assessment - Nurse 1 - General Ulcer Measurement Start: 06/16/17 13:07 Freq: Status: Active Protocol: Activity Type Activity Date Activity User E-Sign Co-Sign Detail Recorded Client Recorded Date Recorded By Document 06/23/17 13:00 [facility] [id number] 06/23/17 13:06 [facility] 06/23/17 13:00 Wound Center Nurse 1 [Ulcer Assessment] 1-right lateral foot -Combined with other wound No -Current Size (cm) - Length 0.4 -Current Size (cm) - Width 0.1 -Current Size (cm) - Depth 0.2 -Total Square Cm 0.04 -Photo Taken No -Epithelialization None Present -Tunneling No -Undermining/Tunneling Yes -Undermining/Tunneling Starts (O' 6 clock) -Undermining/Tunneling Ends (O'clock) 2 -Maximum Distance (cm) 0.2 -Exudate Amt Small (1-33%) -Exudate Type Serous -Wound Margin Distinct, Outline Attached -Granulation Amt None Present (0 %) -Slough/Fibrin Yes -Necrosis Amt Large (67-100%) -Necrotic Tissue Type Adherent Slough -Structure Exposed N/A -Texture (Zohreh-wound Skin Appearance) Callus -Moisture (Zohreh-wound Skin Appearance Dry/Scaly ) -Color (Zohreh-wound Skin Appearance) Assessed -Temperature (Zohreh-wound Skin No Abnormality Appearance) (Pt Warm) -Tenderness on Palpation (Zohreh-wound No Skin Appearance) -Ulcer Cleansing Rinsed/ Irrigated with Saline -Foul Odor after Cleansing No -Anesthetic Used 4% Lidocaine Solution - Nurse 2 - General Ulcer CM Notes Start: 06/16/17 13:07 Freq: Status: Active Protocol: Activity Type Activity Date Activity User E-Sign Co-Sign Detail Recorded Client Recorded Date Recorded By Document 06/23/17 13:37 MW [id number] 06/23/17 13:38 MW 06/23/17 13:37 Wound Center Nurse 2 [Procedure/Treatment] -Time 13:38 -Correct Patient Yes -Correct Side, Site, Position Yes -Correct Procedure Yes -Procedure Performed Yes -Type of Procedure Debridement -Clinical Debridement Subcutaneous -Post Debridement Size (cm) - Length 0.4 -Post Debridement Size (cm) - Width 0.3 -Post Debridement Size (cm) - Depth 0.2 -Total Square Cm 0.12 -Wound/Ulcer Outcome Not Healed -Ulcer Cleansing Rinsed/ Irrigated with Saline -Foul Odor after Cleansing No -Bioengineered Tissue No -Bleeding Controlled with Pressure -Treatment Response Procedure Tolerated Well [See Physician Procedure note for Specifics] Pain Scale: 0-10 Numeric [Pain] -Is Patient Pain Free? Yes Debridement Note Post-Debridement Measurements/Treatment WC - Nurse 2 - General Ulcer CM Notes Start: 06/16/17 13:07 Freq: Status: Active Protocol: Activity Type Activity Date Activity User E-Sign Co-Sign Detail Recorded Client Recorded Date Recorded By Document 06/16/17 13:25 MW [id number] 06/16/17 13:29 MW Document 06/23/17 13:37 MW [id number] 06/23/17 13:38 MW 06/16/17 06/23/17 13:25 13:37 Wound Center Nurse 2 1-right lateral foot -Time 13:25 13:38 -Correct Patient Yes Yes -Correct Side, Site, Position Yes Yes -Correct Procedure Yes Yes -Procedure Performed Yes Yes -Type of Procedure Debridement Debridement -Clinical Debridement Selective Subcutaneous -Post Debridement Size (cm) - Length 0.4 0.4 -Post Debridement Size (cm) - Width 0.2 0.3 -Post Debridement Size (cm) - Depth 0.2 0.2 -Total Square Cm 0.08 0.12 -Wound/Ulcer Outcome Not Healed Not Healed -Ulcer Cleansing Rinsed/ Rinsed/ Irrigated with Irrigated with Saline Saline -Foul Odor after Cleansing No No -Bioengineered Tissue No No -Bleeding Controlled with Pressure Pressure -Treatment Response Procedure Procedure Tolerated Well Tolerated Well Pain Scale: 0-10 Numeric Is Patient Pain Free? Yes Yes Wound debrided: R foot Laterality: Right Wound Grade/Stage: bailey grade 1 DFU Type of Debridement: Excisional debridement Anesthesia Used: 4% Lidocaine Solution Depth: Down to and including healthy tissue, in the subcutaneous layer Percentage of wound debrided: 100 Instrument Used: 3mm curette Tissue Removed: fibrous slough, surrounding hyperkeratotic tissue Severity: Fat Layer Exposed Amount of bleeding with debridement: Mild Bleeding Controlled with: Pressure, Compression and gauze Patient tolerated procedure well Assessment/Plan Active Problems Non-pressure chronic ulcer of other part of right foot with fat layer exposed ( Acute) Type 2 diabetes mellitus with foot ulcer (Acute) Type 2 diabetes mellitus with diabetic polyneuropathy (Chronic) Assessment: See diagnoses Plan: SQ/excisional debridement of R foot ulcer as above. Stable. Continue diabetic shoes for offloading. Cont Regranex q12h then medihoney q12h. Monitor for redness, pus, malodor, warmth, pain, swelling as well as N/V/F/C and go to the ED with these. Discussed importance of tight blood sugar control , adequate nutrition, especially increased protein intake, to promote healing. Discussed importance of tobacco cessation and smoking's effects on wound healing. Pt continues to smoke tobacco against advice. Return in 1 week, call wound center with questions or problems prior to f/u appt.
[2017-06-30 13:01] VITALS: BP 138/71; PULSE 66; RESP 18; TEMP 36.6
--- NOTE | 2017-06-30 14:00 | PN.PCM_ITS ---
(1) Non-pressure chronic ulcer of other part of right foot with fat layer exposed Status: Acute Current Visit: Yes Code(s): L97.512 - Non-pressure chronic ulcer of other part of right foot with fat layer exposed (2) Type 2 diabetes mellitus with foot ulcer Status: Acute Current Visit: Yes Qualifiers: Diabetes mellitus retirement insulin use: unspecified retirement insulin use status Qualified Code(s): E11.621 - Type 2 diabetes mellitus with foot ulcer; L97.509 - Non-pressure chronic ulcer of other part of unspecified foot with unspecified severity Code(s): E11.621 - Type 2 diabetes mellitus with foot ulcer; L97.509 - Non- pressure chronic ulcer of other part of unspecified foot with unspecified severity (3) Type 2 diabetes mellitus with diabetic polyneuropathy Status: Chronic Current Visit: Yes Qualifiers: Diabetes mellitus termite treater helper insulin use: unspecified termite treater helper insulin use status Qualified Code(s): E11.42 - Type 2 diabetes mellitus with diabetic polyneuropathy Code(s): E11.42 - Type 2 diabetes mellitus with diabetic polyneuropathy Type of Wound Date of Service: 06/30/17 Chief Complaint: non-healing right foot ulcer History of Wound: 62 year old diabetic man with PAD and neuropathy presents with non-healing R foot ulcer. Had multiple other ulcerations that have subsequently healed, and actually had underlying osteomyelitis and underwent HBO treatments at [facility] in [place]. Pt is known to me from wound care visits there. He has one ulceration remaining. He is a patient of Dr. Stephenss, and is seeing him next month. Denies pus, malodor, warmth, pain. Denies N/V/F/C. Has been applying promogran every other day. Notes minimal imrovement, so we are going to switch dressings today. 06/09--Has been applying medihoney gel and dry dressing daily. Notes improvement. Denies N/V/F/C. Denies pus, malodor, warmth, pain, swelling. Notes minimal if any drainage--- increase frequency to BID. 06/16--Has been applying medihoney gel and dry dressing twice daily. Notes improvement. Denies N/V/F/C. Denies pus, malodor, warmth, pain, swelling. Notes no drainage---increase frequency from BID to TID. 06/23--Used medihoney until 2-3 days ago when he started Regranex x 12 hours in the AM and lightly moistened gauze dressing at night. Ulcer stable. Denies s/s of acute bacterial infection R foot. 06/30--Using Regranex x 12 hours in the AM and medihoney with dry dressing at night. Ulcer improving. Denies s/s of acute bacterial infection R foot. Progress of Wound: Improving with Regranex. - Physical Exam Vital Signs Temp Pulse Resp BP 97.8 F 66 18 138/71 H 06/30/17 13:01 06/30/17 13:01 06/30/17 13:01 06/30/17 13:01 General: Alert, Oriented x3, Cooperative, No apparent distress Skin: Ulcer/ Wound - R lateral 5th met head with no erythema, no malodor, no pus , no calor. No clinical signs of acute bacterial infection noted. See nurse?s wound/edema assessment below. Wound Measurements and Assessment WC - Nurse 1 - General Ulcer Measurement Start: 06/16/17 13:07 Freq: Status: Active Protocol: Activity Type Activity Date Activity User E-Sign Co-Sign Detail Recorded Client Recorded Date Recorded By Document 06/30/17 13:01 DL [id number] 06/30/17 13:06 DL 06/30/17 13:01 Wound Center Nurse 1 [Ulcer Assessment] 1-right lateral foot -Current Size (cm) - Length 0.2 -Current Size (cm) - Width 0.3 -Current Size (cm) - Depth 0.2 -Total Square Cm 0.06 -Photo Taken No -Maximum Distance #2 (cm) 0.2 -Circular Undermining Yes -Exudate Amt Small (1-33%) -Wound Margin Thickened -Granulation Amt Small (1-33%) -Granulation Quality Pale -Necrosis Amt None Present (0 %) -Necrotic Tissue Type Adherent Slough -Structure Exposed N/A -Texture (Zohreh-wound Skin Appearance) Callus -Moisture (Zohreh-wound Skin Appearance Maceration ) -Color (Zohreh-wound Skin Appearance) No Abnormality -Temperature (Zohreh-wound Skin No Abnormality Appearance) (Pt Warm) -Tenderness on Palpation (Zohreh-wound No Skin Appearance) -Ulcer Cleansing Rinsed/ Irrigated with Saline -Foul Odor after Cleansing No -Anesthetic Used 4% Lidocaine Solution - Nurse 2 - General Ulcer CM Notes Start: 06/16/17 13:07 Freq: Status: Active Protocol: Activity Type Activity Date Activity User E-Sign Co-Sign Detail Recorded Client Recorded Date Recorded By Document 06/30/17 13:14 MW [id number] 06/30/17 13:18 MW 06/30/17 13:14 Wound Center Nurse 2 [Procedure/Treatment] -Time 13:15 -Correct Patient Yes -Correct Side, Site, Position Yes -Correct Procedure Yes -Procedure Performed Yes -Type of Procedure Debridement -Clinical Debridement Subcutaneous -Post Debridement Size (cm) - Length 0.4 -Post Debridement Size (cm) - Width 0.2 -Post Debridement Size (cm) - Depth 0.2 -Total Square Cm 0.08 -Wound/Ulcer Outcome Not Healed -Ulcer Cleansing Rinsed/ Irrigated with Saline -Foul Odor after Cleansing No -Bioengineered Tissue No -Bleeding Controlled with Pressure -Treatment Response Procedure Tolerated Well [See Physician Procedure note for Specifics] Pain Scale: 0-10 Numeric [Pain] -Is Patient Pain Free? No Debridement Note Post-Debridement Measurements/Treatment WC - Nurse 2 - General Ulcer CM Notes Start: 06/16/17 13:07 Freq: Status: Active Protocol: Activity Type Activity Date Activity User E-Sign Co-Sign Detail Recorded Client Recorded Date Recorded By Document 06/16/17 13:25 MW [id number] 06/16/17 13:29 MW Document 06/23/17 13:37 MW [id number] 06/23/17 13:38 MW Document 06/30/17 13:14 MW [id number] 06/30/17 13:18 MW 06/16/17 06/23/17 06/30/17 13:25 13:37 13:14 Wound Center Nurse 2 1-right lateral foot -Time 13:25 13:38 13:15 -Correct Patient Yes Yes Yes -Correct Side, Site, Position Yes Yes Yes -Correct Procedure Yes Yes Yes -Procedure Performed Yes Yes Yes -Type of Procedure Debridement Debridement Debridement -Clinical Debridement Selective Subcutaneous Subcutaneous -Post Debridement Size (cm) - Length 0.4 0.4 0.4 -Post Debridement Size (cm) - Width 0.2 0.3 0.2 -Post Debridement Size (cm) - Depth 0.2 0.2 0.2 -Total Square Cm 0.08 0.12 0.08 -Wound/Ulcer Outcome Not Healed Not Healed Not Healed -Ulcer Cleansing Rinsed/ Rinsed/ Rinsed/ Irrigated with Irrigated with Irrigated with Saline Saline Saline -Foul Odor after Cleansing No No No -Bioengineered Tissue No No No -Bleeding Controlled with Pressure Pressure Pressure -Treatment Response Procedure Procedure Procedure Tolerated Well Tolerated Well Tolerated Well Pain Scale: 0-10 Numeric Is Patient Pain Free? Yes Yes No Wound debrided: R lateral foot Laterality: Right Wound Grade/Stage: Freitas grade 1 full thickness DFU Type of Debridement: Excisional debridement Anesthesia Used: 4% Lidocaine Solution Depth: Down to and including healthy tissue, in the subcutaneous layer Percentage of wound debrided: 100 Instrument Used: - - 1mm curette Tissue Removed: fibrous slough Severity: Fat Layer Exposed Amount of bleeding with debridement: Mild Bleeding Controlled with: Pressure, Compression and gauze Patient tolerated procedure well Assessment/Plan Active Problems Non-pressure chronic ulcer of other part of right foot with fat layer exposed ( Acute) Type 2 diabetes mellitus with foot ulcer (Acute) Type 2 diabetes mellitus with diabetic polyneuropathy (Chronic) Assessment: See diagnoses Plan: SQ/excisional debridement of R foot ulcer as above. Improved. Continue diabetic shoes for offloading. Cont Regranex--stop medihoney, and increase regranex to BID. Gently wash with soap and water then flush with saline bewtween dressing changes. Monitor for redness, pus, malodor, warmth, pain, swelling as well as N/V/F/C and go to the ED with these. Discussed importance of tight blood sugar control, adequate nutrition, especially increased protein intake, to promote healing. Discussed importance of tobacco cessation and smoking's effects on wound healing. Pt continues to smoke tobacco against advice. Return in 1 week, call wound center with questions or problems prior to f/u appt.
[2017-07-07 13:04] VITALS: BP 149/73; PULSE 61; RESP 18; TEMP 36.2
--- NOTE | 2017-07-07 13:24 | PCM.WC.PN ---
(1) Non-pressure chronic ulcer of other part of right foot with fat layer exposed Status: Acute Current Visit: Yes Code(s): L97.512 - Non-pressure chronic ulcer of other part of right foot with fat layer exposed (2) Type 2 diabetes mellitus with foot ulcer Status: Acute Current Visit: Yes Qualifiers: Diabetes mellitus [facility] insulin use: unspecified [facility] insulin use status Qualified Code(s): E11.621 - Type 2 diabetes mellitus with foot ulcer; L97.509 - Non-pressure chronic ulcer of other part of unspecified foot with unspecified severity Code(s): E11.621 - Type 2 diabetes mellitus with foot ulcer; L97.509 - Non-pressure chronic ulcer of other part of unspecified foot with unspecified severity (3) Type 2 diabetes mellitus with diabetic polyneuropathy Status: Chronic Current Visit: Yes Qualifiers: Diabetes mellitus [facility] insulin use: unspecified [facility] use status Qualified Code(s): E11.42 - Type 2 diabetes mellitus with diabetic polyneuropathy Code(s): E11.42 - Type 2 diabetes mellitus with diabetic polyneuropathy Type of Wound Date of Service: 07/07/17 Chief Complaint: non-healing right foot ulcer History of Wound: 62 year old diabetic man with PAD and neuropathy presents with non-healing R foot ulcer. Had multiple other ulcerations that have subsequently healed, and actually had underlying osteomyelitis and underwent HBO treatments at [facility] in [place]. Pt is known to me from wound care visits there. He has one ulceration remaining. He is a patient of Dr. Stephenss, and is seeing him next month. Denies pus, malodor, warmth, pain. Denies N/V/F/C. Has been applying promogran every other day. Notes minimal imrovement, so we are going to switch dressings today. 06/09--Has been applying medihoney gel and dry dressing daily. Notes improvement. Denies N/V/F/C. Denies pus, malodor, warmth, pain, swelling. Notes minimal if any drainage---increase frequency to BID. 06/16--Has been applying medihoney gel and dry dressing twice daily. Notes improvement. Denies N/V/F/C. Denies pus, malodor, warmth, pain, swelling. Notes no drainage---increase frequency from BID to TID. 06/23--Used medihoney until 2-3 days ago when he started Regranex x 12 hours in the AM and lightly moistened gauze dressing at night. Ulcer stable. Denies s/s of acute bacterial infection R foot. 06/30--Using Regranex x 12 hours in the AM and medihoney with dry dressing at night. Ulcer improving. Denies s/s of acute bacterial infection R foot. 07/07--Using Regranex x 12 hours in the AM and x 12 hours at night. Ulcer improving. Denies s/s of acute bacterial infection R foot. Progress of Wound: Slowly improving with BID Regranex. - Physical Exam Vital Signs Temp Pulse Resp BP 97.1 F L 61 18 149/73 H 07/07/17 13:04 07/07/17 13:04 07/07/17 13:04 07/07/17 13:04 General: Alert, Oriented x3, Cooperative, No apparent distress Skin: Ulcer/ Wound - R lateral 5th met head with no erythema, no pus, no malodor, no calor, no pain. No clinical signs of acute bacterial infection noted. See wound/edema assessment below. Wound Measurements and Assessment WC - Nurse 1 - General Ulcer Measurement Start: 06/16/17 13:07 Freq: Status: Active Protocol: Activity Type Activity Date Activity User E-Sign Co-Sign Detail Recorded Client Recorded Date Recorded By Document 07/07/17 13:04 KIP [id number] 07/07/17 13:07 KIP 07/07/17 13:04 Wound Center Nurse 1 [Ulcer Assessment] 1-right lateral foot -Combined with other wound No -Current Size (cm) - Length 0.2 -Current Size (cm) - Width 0.2 -Current Size (cm) - Depth 0.3 -Total Square Cm 0.04 -Photo Taken No -Epithelialization Small 1-33% -Tunneling No -Undermining/Tunneling No -Circular Undermining Yes -Exudate Amt Small (1-33%) -Exudate Type Serosanguineous -Wound Margin Flat & Intact -Granulation Amt Small (1-33%) -Granulation Quality Pale -Slough/Fibrin Yes -Necrosis Amt Small (1-33%) -Necrotic Tissue Type Adherent Slough -Structure Exposed N/A -Texture (Zohreh-wound Skin Appearance) Assessed Callus -Moisture (Zohreh-wound Skin Appearance Assessed ) Dry/Scaly -Color (Zohreh-wound Skin Appearance) Assessed -Temperature (Zohreh-wound Skin No Abnormality Appearance) (Pt Warm) -Tenderness on Palpation (Zohreh-wound No Skin Appearance) -Ulcer Cleansing Rinsed/ Irrigated with Saline -Foul Odor after Cleansing No -Anesthetic Used 4% Lidocaine Solution [Edema Assessment] -Lower Limb Edema Present NA WC - Nurse 2 - General Ulcer CM Notes Start: 06/16/17 13:07 Freq: Status: Active Protocol: Activity Type Activity Date Activity User E-Sign Co-Sign Detail Recorded Client Recorded Date Recorded By Document 07/07/17 13:14 MW [id number] 07/07/17 13:16 MW 07/07/17 13:14 Wound Center Nurse 2 [Procedure/Treatment] 1-right lateral foot -Time 13:14 -Correct Patient Yes -Correct Side, Site, Position Yes -Correct Procedure Yes -Procedure Performed Yes -Type of Procedure Debridement -Clinical Debridement Subcutaneous -Post Debridement Size (cm) - Length 0.3 -Post Debridement Size (cm) - Width 0.2 -Post Debridement Size (cm) - Depth 0.2 -Total Square Cm 0.06 -Wound/Ulcer Outcome Not Healed -Ulcer Cleansing Rinsed/ Irrigated with Saline -Foul Odor after Cleansing No -Bioengineered Tissue No -Bleeding Controlled with Pressure -Treatment Response Procedure Tolerated Well [See Physician Procedure note for Specifics] Pain Scale: 0-10 Numeric [Pain] -Is Patient Pain Free? Yes Debridement Note Post-Debridement Measurements/Treatment WC - Nurse 2 - General Ulcer CM Notes Start: 06/16/17 13:07 Freq: Status: Active Protocol: Activity Type Activity Date Activity User E-Sign Co-Sign Detail Recorded Client Recorded Date Recorded By Document 06/16/17 13:25 MW [id number] 06/16/17 13:29 MW Document 06/23/17 13:37 MW [id number] 06/23/17 13:38 MW Document 06/30/17 13:14 MW [id number] 06/30/17 13:18 MW Document 07/07/17 13:14 MW [id number] 07/07/17 13:16 MW 06/16/17 06/23/17 06/30/17 13:25 13:37 13:14 Wound Center Nurse 2 1-right lateral foot -Time 13:25 13:38 13:15 -Correct Patient Yes Yes Yes -Correct Side, Site, Position Yes Yes Yes -Correct Procedure Yes Yes Yes -Procedure Performed Yes Yes Yes -Type of Procedure Debridement Debridement Debridement -Clinical Debridement Selective Subcutaneous Subcutaneous -Post Debridement Size (cm) - Length 0.4 0.4 0.4 -Post Debridement Size (cm) - Width 0.2 0.3 0.2 -Post Debridement Size (cm) - Depth 0.2 0.2 0.2 -Total Square Cm 0.08 0.12 0.08 -Wound/Ulcer Outcome Not Healed Not Healed Not Healed -Ulcer Cleansing Rinsed/ Rinsed/ Rinsed/ Irrigated with Irrigated with Irrigated with Saline Saline Saline -Foul Odor after Cleansing No No No -Bioengineered Tissue No No No -Bleeding Controlled with Pressure Pressure Pressure -Treatment Response Procedure Procedure Procedure Tolerated Well Tolerated Well Tolerated Well Pain Scale: 0-10 Numeric Is Patient Pain Free? Yes Yes No 07/07/17 13:14 Wound Center Nurse 2 1-right lateral foot -Time 13:14 -Correct Patient Yes -Correct Side, Site, Position Yes -Correct Procedure Yes -Procedure Performed Yes -Type of Procedure Debridement -Clinical Debridement Subcutaneous -Post Debridement Size (cm) - Length 0.3 -Post Debridement Size (cm) - Width 0.2 -Post Debridement Size (cm) - Depth 0.2 -Total Square Cm 0.06 -Wound/Ulcer Outcome Not Healed -Ulcer Cleansing Rinsed/ Irrigated with Saline -Foul Odor after Cleansing No -Bioengineered Tissue No -Bleeding Controlled with Pressure -Treatment Response Procedure Tolerated Well Pain Scale: 0-10 Numeric Is Patient Pain Free? Yes Wound debrided: R lateral 5th met head Laterality: Right Wound Grade/Stage: Freitas grade 1 full thickness DFU Type of Debridement: Excisional debridement Anesthesia Used: 4% Lidocaine Solution Depth: Down to and including healthy tissue, in the subcutaneous layer Percentage of wound debrided: 100 Instrument Used: #15 blade Tissue Removed: fibrous slough, surrounding hyperkeratotic tissue Severity: Fat Layer Exposed Amount of bleeding with debridement: Mild Bleeding Controlled with: Pressure, Compression and gauze Patient tolerated procedure well Assessment/Plan Active Problems Non-pressure chronic ulcer of other part of right foot with fat layer exposed (Acute) Type 2 diabetes mellitus with foot ulcer (Acute) Type 2 diabetes mellitus with diabetic polyneuropathy (Chronic) Assessment: See diagnoses Plan: SQ/excisional debridement of R foot ulcer as above. Slightly improved. Continue diabetic shoes for offloading. Cont Regranex BID. Gently wash with soap and water then flush with saline bewtween dressing changes. Monitor for redness, pus, malodor, warmth, pain, swelling as well as N/V/F/C and go to the ED with these. Discussed importance of tight blood sugar control, adequate nutrition, especially increased protein intake, to promote healing. Discussed importance of tobacco cessation and smoking's effects on wound healing. Pt continues to smoke tobacco against advice. Return in 1 week, call wound center with questions or problems prior to f/u appt. Add moderate spandagrip bilateral lower extremities, don in AM and remove before sleep.
--- NOTE | 2017-07-07 13:28 | PN.PCM_ITS ---
(1) Non-pressure chronic ulcer of other part of right foot with fat layer exposed Status: Acute Current Visit: Yes Code(s): L97.512 - Non-pressure chronic ulcer of other part of right foot with fat layer exposed (2) Type 2 diabetes mellitus with foot ulcer Status: Acute Current Visit: Yes Qualifiers: Diabetes mellitus residential insulin use: unspecified residential insulin use status Qualified Code(s): E11.621 - Type 2 diabetes mellitus with foot ulcer; L97.509 - Non-pressure chronic ulcer of other part of unspecified foot with unspecified severity Code(s): E11.621 - Type 2 diabetes mellitus with foot ulcer; L97.509 - Non- pressure chronic ulcer of other part of unspecified foot with unspecified severity (3) Type 2 diabetes mellitus with diabetic polyneuropathy Status: Chronic Current Visit: Yes Qualifiers: Diabetes mellitus [facility] insulin use: unspecified [facility] insulin use status Qualified Code(s): E11.42 - Type 2 diabetes mellitus with diabetic polyneuropathy Code(s): E11.42 - Type 2 diabetes mellitus with diabetic polyneuropathy Type of Wound Date of Service: 07/07/17 Chief Complaint: non-healing right foot ulcer History of Wound: 62 year old diabetic man with PAD and neuropathy presents with non-healing R foot ulcer. Had multiple other ulcerations that have subsequently healed, and actually had underlying osteomyelitis and underwent HBO treatments at [facility] in [place]. Pt is known to me from wound care visits there. He has one ulceration remaining. He is a patient of Dr. Stephenss, and is seeing him next month. Denies pus, malodor, warmth, pain. Denies N/V/F/C. Has been applying promogran every other day. Notes minimal imrovement, so we are going to switch dressings today. 06/09--Has been applying medihoney gel and dry dressing daily. Notes improvement. Denies N/V/F/C. Denies pus, malodor, warmth, pain, swelling. Notes minimal if any drainage--- increase frequency to BID. 06/16--Has been applying medihoney gel and dry dressing twice daily. Notes improvement. Denies N/V/F/C. Denies pus, malodor, warmth, pain, swelling. Notes no drainage---increase frequency from BID to TID. 06/23--Used medihoney until 2-3 days ago when he started Regranex x 12 hours in the AM and lightly moistened gauze dressing at night. Ulcer stable. Denies s/s of acute bacterial infection R foot. 06/30--Using Regranex x 12 hours in the AM and medihoney with dry dressing at night. Ulcer improving. Denies s/s of acute bacterial infection R foot. 07/07--Using Regranex x 12 hours in the AM and x 12 hours at night. Ulcer improving. Denies s/s of acute bacterial infection R foot. Progress of Wound: Slowly improving with BID Regranex. - Physical Exam Vital Signs Temp Pulse Resp BP 97.1 F L 61 18 149/73 H 07/07/17 13:04 07/07/17 13:04 07/07/17 13:04 07/07/17 13:04 General: Alert, Oriented x3, Cooperative, No apparent distress Skin: Ulcer/ Wound - R lateral 5th met head with no erythema, no pus, no malodor , no calor, no pain. No clinical signs of acute bacterial infection noted. See wound/edema assessment below. Wound Measurements and Assessment WC - Nurse 1 - General Ulcer Measurement Start: 06/16/17 13:07 Freq: Status: Active Protocol: Activity Type Activity Date Activity User E-Sign Co-Sign Detail Recorded Client Recorded Date Recorded By Document 07/07/17 13:04 KIP [id number] 07/07/17 13:07 KIP 07/07/17 13:04 Wound Center Nurse 1 [Ulcer Assessment] 1-right lateral foot -Combined with other wound No -Current Size (cm) - Length 0.2 -Current Size (cm) - Width 0.2 -Current Size (cm) - Depth 0.3 -Total Square Cm 0.04 -Photo Taken No -Epithelialization Small 1-33% -Tunneling No -Undermining/Tunneling No -Circular Undermining Yes -Exudate Amt Small (1-33%) -Exudate Type Serosanguineous -Wound Margin Flat & Intact -Granulation Amt Small (1-33%) -Granulation Quality Pale -Slough/Fibrin Yes -Necrosis Amt Small (1-33%) -Necrotic Tissue Type Adherent Slough -Structure Exposed N/A -Texture (Zohreh-wound Skin Appearance) Assessed Callus -Moisture (Zohreh-wound Skin Appearance Assessed ) Dry/Scaly -Color (Zohreh-wound Skin Appearance) Assessed -Temperature (Zohreh-wound Skin No Abnormality Appearance) (Pt Warm) -Tenderness on Palpation (Zohreh-wound No Skin Appearance) -Ulcer Cleansing Rinsed/ Irrigated with Saline -Foul Odor after Cleansing No -Anesthetic Used 4% Lidocaine Solution [Edema Assessment] -Lower Limb Edema Present NA WC - Nurse 2 - General Ulcer CM Notes Start: 06/16/17 13:07 Freq: Status: Active Protocol: Activity Type Activity Date Activity User E-Sign Co-Sign Detail Recorded Client Recorded Date Recorded By Document 07/07/17 13:14 MW [id number] 07/07/17 13:16 MW 07/07/17 13:14 Wound Center Nurse 2 [Procedure/Treatment] 1-right lateral foot -Time 13:14 -Correct Patient Yes -Correct Side, Site, Position Yes -Correct Procedure Yes -Procedure Performed Yes -Type of Procedure Debridement -Clinical Debridement Subcutaneous -Post Debridement Size (cm) - Length 0.3 -Post Debridement Size (cm) - Width 0.2 -Post Debridement Size (cm) - Depth 0.2 -Total Square Cm 0.06 -Wound/Ulcer Outcome Not Healed -Ulcer Cleansing Rinsed/ Irrigated with Saline -Foul Odor after Cleansing No -Bioengineered Tissue No -Bleeding Controlled with Pressure -Treatment Response Procedure Tolerated Well [See Physician Procedure note for Specifics] Pain Scale: 0-10 Numeric [Pain] -Is Patient Pain Free? Yes Debridement Note Post-Debridement Measurements/Treatment WC - Nurse 2 - General Ulcer CM Notes Start: 06/16/17 13:07 Freq: Status: Active Protocol: Activity Type Activity Date Activity User E-Sign Co-Sign Detail Recorded Client Recorded Date Recorded By Document 06/16/17 13:25 MW [id number] 06/16/17 13:29 MW Document 06/23/17 13:37 MW [id number] 06/23/17 13:38 MW Document 06/30/17 13:14 MW [id number] 06/30/17 13:18 MW Document 07/07/17 13:14 MW [id number] 07/07/17 13:16 MW 06/16/17 06/23/17 06/30/17 13:25 13:37 13:14 Wound Center Nurse 2 1-right lateral foot -Time 13:25 13:38 13:15 -Correct Patient Yes Yes Yes -Correct Side, Site, Position Yes Yes Yes -Correct Procedure Yes Yes Yes -Procedure Performed Yes Yes Yes -Type of Procedure Debridement Debridement Debridement -Clinical Debridement Selective Subcutaneous Subcutaneous -Post Debridement Size (cm) - Length 0.4 0.4 0.4 -Post Debridement Size (cm) - Width 0.2 0.3 0.2 -Post Debridement Size (cm) - Depth 0.2 0.2 0.2 -Total Square Cm 0.08 0.12 0.08 -Wound/Ulcer Outcome Not Healed Not Healed Not Healed -Ulcer Cleansing Rinsed/ Rinsed/ Rinsed/ Irrigated with Irrigated with Irrigated with Saline Saline Saline -Foul Odor after Cleansing No No No -Bioengineered Tissue No No No -Bleeding Controlled with Pressure Pressure Pressure -Treatment Response Procedure Procedure Procedure Tolerated Well Tolerated Well Tolerated Well Pain Scale: 0-10 Numeric Is Patient Pain Free? Yes Yes No 07/07/17 13:14 Wound Center Nurse 2 1-right lateral foot -Time 13:14 -Correct Patient Yes -Correct Side, Site, Position Yes -Correct Procedure Yes -Procedure Performed Yes -Type of Procedure Debridement -Clinical Debridement Subcutaneous -Post Debridement Size (cm) - Length 0.3 -Post Debridement Size (cm) - Width 0.2 -Post Debridement Size (cm) - Depth 0.2 -Total Square Cm 0.06 -Wound/Ulcer Outcome Not Healed -Ulcer Cleansing Rinsed/ Irrigated with Saline -Foul Odor after Cleansing No -Bioengineered Tissue No -Bleeding Controlled with Pressure -Treatment Response Procedure Tolerated Well Pain Scale: 0-10 Numeric Is Patient Pain Free? Yes Wound debrided: R lateral 5th met head Laterality: Right Wound Grade/Stage: Freitas grade 1 full thickness DFU Type of Debridement: Excisional debridement Anesthesia Used: 4% Lidocaine Solution Depth: Down to and including healthy tissue, in the subcutaneous layer Percentage of wound debrided: 100 Instrument Used: #15 blade Tissue Removed: fibrous slough, surrounding hyperkeratotic tissue Severity: Fat Layer Exposed Amount of bleeding with debridement: Mild Bleeding Controlled with: Pressure, Compression and gauze Patient tolerated procedure well Assessment/Plan Active Problems Non-pressure chronic ulcer of other part of right foot with fat layer exposed ( Acute) Type 2 diabetes mellitus with foot ulcer (Acute) Type 2 diabetes mellitus with diabetic polyneuropathy (Chronic) Assessment: See diagnoses Plan: SQ/excisional debridement of R foot ulcer as above. Slightly improved. Continue diabetic shoes for offloading. Cont Regranex BID. Gently wash with soap and water then flush with saline bewtween dressing changes. Monitor for redness, pus, malodor, warmth, pain, swelling as well as N/V/F/C and go to the ED with these. Discussed importance of tight blood sugar control, adequate nutrition, especially increased protein intake, to promote healing. Discussed importance of tobacco cessation and smoking's effects on wound healing. Pt continues to smoke tobacco against advice. Return in 1 week, call wound center with questions or problems prior to f/u appt. Add moderate spandagrip bilateral lower extremities, don in AM and remove before sleep.
== END 2017-07-11 23:59 ==
LOC: WC 13:00
PROVIDERS: Family Provider Family Medicine; PCP Family Medicine; Visit Provider Podiatrist Foot & Ankle Surgery
DX: E11.621 Type 2 diabetes mellitus with foot ulcer (principal); L97.512 Non-pressure chronic ulcer of other part of right foot with fat layer exposed; E11.42 Type 2 diabetes mellitus with diabetic polyneuropathy; E11.51 Type 2 diabetes mellitus with diabetic peripheral angiopathy without gangrene
CPT/HCPCS: 11042; 97597

== ENCOUNTER 2017-08-04 13:00 | Outpatient (RCR) | payer OTHER, SELFPAY ==
[2017-07-12 01:02] VITALS: PULSE 61; RESP 18; TEMP 36.2
[2017-07-14 13:11] VITALS: BP 103/61; PULSE 56; RESP 18; TEMP 35.7
--- NOTE | 2017-07-14 14:01 | PCM.WC.PN ---
(1) Non-pressure chronic ulcer of other part of right foot with fat layer exposed Status: Acute Current Visit: No Code(s): L97.512 - Non-pressure chronic ulcer of other part of right foot with fat layer exposed (2) Type 2 diabetes mellitus with foot ulcer Status: Acute Current Visit: No Qualifiers: Code(s): E11.621 - Type 2 diabetes mellitus with foot ulcer; L97.509 - Non-pressure chronic ulcer of other part of unspecified foot with unspecified severity (3) Type 2 diabetes mellitus with diabetic polyneuropathy Status: Chronic Current Visit: No Qualifiers: Code(s): E11.42 - Type 2 diabetes mellitus with diabetic polyneuropathy Type of Wound Date of Service: 07/14/17 Chief Complaint: non-healing right foot ulcer History of Wound: 62 year old diabetic man with PAD and neuropathy presents with non-healing R foot ulcer. Had multiple other ulcerations that have subsequently healed, and actually had underlying osteomyelitis and underwent HBO treatments at [facility] in [place]. Pt is known to me from wound care visits there. He has one ulceration remaining. He is a patient of Dr. Cevallos, and is seeing him next month. Denies pus, malodor, warmth, pain. Denies N/V/F/C. Has been applying promogran every other day. Notes minimal imrovement, so we are going to switch dressings today. 06/09--Has been applying medihoney gel and dry dressing daily. Notes improvement. Denies N/V/F/C. Denies pus, malodor, warmth, pain, swelling. Notes minimal if any drainage---increase frequency to BID. 06/16--Has been applying medihoney gel and dry dressing twice daily. Notes improvement. Denies N/V/F/C. Denies pus, malodor, warmth, pain, swelling. Notes no drainage---increase frequency from BID to TID. 06/23--Used medihoney until 2-3 days ago when he started Regranex x 12 hours in the AM and lightly moistened gauze dressing at night. Ulcer stable. Denies s/s of acute bacterial infection R foot. 06/30--Using Regranex x 12 hours in the AM and medihoney with dry dressing at night. Ulcer improving. Denies s/s of acute bacterial infection R foot. 07/07--Using Regranex x 12 hours in the AM and x 12 hours at night. Ulcer improving. Denies s/s of acute bacterial infection R foot. 07/14--Using Regranex x 12 hours in the AM and x 12 hours at night. Ulcer very slowly improving. Denies s/s of acute bacterial infection R foot. Progress of Wound: Slowly improving with BID Regranex, however it seems to be callusing over, so we will have him start gently packing with nugauze. - Physical Exam Vital Signs Temp Pulse Resp BP 96.2 F L 56 L 18 103/61 07/14/17 13:11 07/14/17 13:11 07/14/17 13:11 07/14/17 13:11 General: Alert, Oriented x3, Cooperative, No apparent distress Skin: Ulcer/ Wound - R lateral 5th met head with no erythema, no pus, no malodor, no warmth, no pain. No clinical signs of acute bacterial infection noted. See wound/edema assessment below. Wound Measurements and Assessment WC - Nurse 1 - General Ulcer Measurement Start: 07/14/17 13:11 Freq: Status: Active Protocol: Activity Type Activity Date Activity User E-Sign Co-Sign Detail Recorded Client Recorded Date Recorded By Document 07/14/17 13:11 TN [id number] 07/14/17 13:17 TN 07/14/17 13:11 Wound Center Nurse 1 [Ulcer Assessment] 1-right lateral foot -Combined with other wound No -Current Size (cm) - Length 0.1 -Current Size (cm) - Width 0.3 -Current Size (cm) - Depth 0.2 -Total Square Cm 0.03 -Date of Last Picture (Recall this 07/14/17 field) -Photo Taken Yes -Epithelialization None Present -Tunneling No -Undermining/Tunneling No -Circular Undermining No -Classification - Thickness Full Thickness without Exposed Support Structure -Change in Wound Grade/Stage No Query Text:If change please identify the Stage/Grade in the comment (ie. S2 G3) -Exudate Amt Small (1-33%) -Exudate Type Yellow/Green -Wound Margin Distinct, Outline Attached -Slough/Fibrin Yes -Necrosis Amt Small (1-33%) -Necrotic Tissue Type Adherent Slough -Structure Exposed None/Limited to Skin Breakdown -Texture (Zohreh-wound Skin Appearance) Assessed Callus -Moisture (Zohreh-wound Skin Appearance No Abnormality ) Assessed -Color (Zohreh-wound Skin Appearance) Assessed Palor -Temperature (Zohreh-wound Skin No Abnormality Appearance) (Pt Warm) -Ulcer Cleansing Rinsed/ Irrigated with Saline -Anesthetic Used 5% Lidocaine Gel [Edema Assessment] -Lower Limb Edema Present No WC - Nurse 2 - General Ulcer CM Notes Start: 07/14/17 13:11 Freq: Status: Active Protocol: Activity Type Activity Date Activity User E-Sign Co-Sign Detail Recorded Client Recorded Date Recorded By Document 07/14/17 13:43 MW [id number] 07/14/17 13:49 MW 07/14/17 13:43 Wound Center Nurse 2 [Procedure/Treatment] 1-right lateral foot -Time 13:43 -Correct Patient Yes -Correct Side, Site, Position Yes -Correct Procedure Yes -Procedure Performed Yes -Type of Procedure Debridement -Clinical Debridement Subcutaneous -Post Debridement Size (cm) - Length 0.2 -Post Debridement Size (cm) - Width 0.3 -Post Debridement Size (cm) - Depth 0.2 -Total Square Cm 0.06 -Wound/Ulcer Outcome Not Healed -Ulcer Cleansing Rinsed/ Irrigated with Saline -Foul Odor after Cleansing No -Bioengineered Tissue No -Bleeding Controlled with Pressure -Treatment Response Procedure Tolerated Well [See Physician Procedure note for Specifics] Pain Scale: 0-10 Numeric [Pain] -Is Patient Pain Free? Yes Debridement Note Post-Debridement Measurements/Treatment WC - Nurse 2 - General Ulcer CM Notes Start: 07/14/17 13:11 Freq: Status: Active Protocol: Activity Type Activity Date Activity User E-Sign Co-Sign Detail Recorded Client Recorded Date Recorded By Document 07/14/17 13:43 MW [id number] 07/14/17 13:49 MW 07/14/17 13:43 Wound Center Nurse 2 1-right lateral foot -Time 13:43 -Correct Patient Yes -Correct Side, Site, Position Yes -Correct Procedure Yes -Procedure Performed Yes -Type of Procedure Debridement -Clinical Debridement Subcutaneous -Post Debridement Size (cm) - Length 0.2 -Post Debridement Size (cm) - Width 0.3 -Post Debridement Size (cm) - Depth 0.2 -Total Square Cm 0.06 -Wound/Ulcer Outcome Not Healed -Ulcer Cleansing Rinsed/ Irrigated with Saline -Foul Odor after Cleansing No -Bioengineered Tissue No -Bleeding Controlled with Pressure -Treatment Response Procedure Tolerated Well Pain Scale: 0-10 Numeric Is Patient Pain Free? Yes Wound debrided: R lateral 5th met head Laterality: Right Wound Grade/Stage: bailey grade 1 full thickness DFU Type of Debridement: Excisional debridement Anesthesia Used: 4% Lidocaine Solution Depth: Down to and including healthy tissue, in the subcutaneous layer Percentage of wound debrided: 100 Instrument Used: #15 blade Tissue Removed: fibrous slough, surrounding hyperkeratotic rim Severity: Fat Layer Exposed Amount of bleeding with debridement: Mild Bleeding Controlled with: Pressure, Compression and gauze Patient tolerated procedure well Assessment/Plan Assessment: See diagnoses Plan: SQ/excisional debridement of R foot ulcer as above. Slightly improved. Continue diabetic shoes for offloading, add small aperture pad for further offloading. Cont Regranex BID, add small amount of nugauze packing into ulceration as well with dressing changes. Gently wash with soap and water then flush with saline bewtween dressing changes. Monitor for redness, pus, malodor, warmth, pain, swelling as well as N/V/F/C and go to the ED with these. Discussed importance of tight blood sugar control, adequate nutrition, especially increased protein intake, to promote healing. Discussed importance of tobacco cessation and smoking's effects on wound healing. Pt continues to smoke tobacco against advice. Return in 1 week, call wound center with questions or problems prior to f/u appt. Add moderate spandagrip bilateral lower extremities, don in AM and remove before sleep.
--- NOTE | 2017-07-14 14:06 | PN.PCM_ITS ---
(1) Non-pressure chronic ulcer of other part of right foot with fat layer exposed Status: Acute Current Visit: No Code(s): L97.512 - Non-pressure chronic ulcer of other part of right foot with fat layer exposed (2) Type 2 diabetes mellitus with foot ulcer Status: Acute Current Visit: No Qualifiers: Code(s): E11.621 - Type 2 diabetes mellitus with foot ulcer; L97.509 - Non- pressure chronic ulcer of other part of unspecified foot with unspecified severity (3) Type 2 diabetes mellitus with diabetic polyneuropathy Status: Chronic Current Visit: No Qualifiers: Code(s): E11.42 - Type 2 diabetes mellitus with diabetic polyneuropathy Type of Wound Date of Service: 07/14/17 Chief Complaint: non-healing right foot ulcer History of Wound: 62 year old diabetic man with PAD and neuropathy presents with non-healing R foot ulcer. Had multiple other ulcerations that have subsequently healed, and actually had underlying osteomyelitis and underwent HBO treatments at [facility] in [place]. Pt is known to me from wound care visits there. He has one ulceration remaining. He is a patient of Dr. Cevallos, and is seeing him next month. Denies pus, malodor, warmth, pain. Denies N/V/F/C. Has been applying promogran every other day. Notes minimal imrovement, so we are going to switch dressings today. 06/09--Has been applying medihoney gel and dry dressing daily. Notes improvement. Denies N/V/F/C. Denies pus, malodor, warmth, pain, swelling. Notes minimal if any drainage--- increase frequency to BID. 06/16--Has been applying medihoney gel and dry dressing twice daily. Notes improvement. Denies N/V/F/C. Denies pus, malodor, warmth, pain, swelling. Notes no drainage---increase frequency from BID to TID. 06/23--Used medihoney until 2-3 days ago when he started Regranex x 12 hours in the AM and lightly moistened gauze dressing at night. Ulcer stable. Denies s/s of acute bacterial infection R foot. 06/30--Using Regranex x 12 hours in the AM and medihoney with dry dressing at night. Ulcer improving. Denies s/s of acute bacterial infection R foot. 07/07--Using Regranex x 12 hours in the AM and x 12 hours at night. Ulcer improving. Denies s/s of acute bacterial infection R foot. 07/14--Using Regranex x 12 hours in the AM and x 12 hours at night. Ulcer very slowly improving. Denies s/s of acute bacterial infection R foot. Progress of Wound: Slowly improving with BID Regranex, however it seems to be callusing over, so we will have him start gently packing with nugauze. - Physical Exam Vital Signs Temp Pulse Resp BP 96.2 F L 56 L 18 103/61 07/14/17 13:11 07/14/17 13:11 07/14/17 13:11 07/14/17 13:11 General: Alert, Oriented x3, Cooperative, No apparent distress Skin: Ulcer/ Wound - R lateral 5th met head with no erythema, no pus, no malodor , no warmth, no pain. No clinical signs of acute bacterial infection noted. See wound/edema assessment below. Wound Measurements and Assessment WC - Nurse 1 - General Ulcer Measurement Start: 07/14/17 13:11 Freq: Status: Active Protocol: Activity Type Activity Date Activity User E-Sign Co-Sign Detail Recorded Client Recorded Date Recorded By Document 07/14/17 13:11 TN [id number] 07/14/17 13:17 TN 07/14/17 13:11 Wound Center Nurse 1 [Ulcer Assessment] 1-right lateral foot -Combined with other wound No -Current Size (cm) - Length 0.1 -Current Size (cm) - Width 0.3 -Current Size (cm) - Depth 0.2 -Total Square Cm 0.03 -Date of Last Picture (Recall this 07/14/17 field) -Photo Taken Yes -Epithelialization None Present -Tunneling No -Undermining/Tunneling No -Circular Undermining No -Classification - Thickness Full Thickness without Exposed Support Structure -Change in Wound Grade/Stage No Query Text:If change please identify the Stage/Grade in the comment (ie. S2 G3) -Exudate Amt Small (1-33%) -Exudate Type Yellow/Green -Wound Margin Distinct, Outline Attached -Slough/Fibrin Yes -Necrosis Amt Small (1-33%) -Necrotic Tissue Type Adherent Slough -Structure Exposed None/Limited to Skin Breakdown -Texture (Zohreh-wound Skin Appearance) Assessed Callus -Moisture (Zohreh-wound Skin Appearance No Abnormality ) Assessed -Color (Zohreh-wound Skin Appearance) Assessed Palor -Temperature (Zohreh-wound Skin No Abnormality Appearance) (Pt Warm) -Ulcer Cleansing Rinsed/ Irrigated with Saline -Anesthetic Used 5% Lidocaine Gel [Edema Assessment] -Lower Limb Edema Present No WC - Nurse 2 - General Ulcer CM Notes Start: 07/14/17 13:11 Freq: Status: Active Protocol: Activity Type Activity Date Activity User E-Sign Co-Sign Detail Recorded Client Recorded Date Recorded By Document 07/14/17 13:43 MW [id number] 07/14/17 13:49 MW 07/14/17 13:43 Wound Center Nurse 2 [Procedure/Treatment] 1-right lateral foot -Time 13:43 -Correct Patient Yes -Correct Side, Site, Position Yes -Correct Procedure Yes -Procedure Performed Yes -Type of Procedure Debridement -Clinical Debridement Subcutaneous -Post Debridement Size (cm) - Length 0.2 -Post Debridement Size (cm) - Width 0.3 -Post Debridement Size (cm) - Depth 0.2 -Total Square Cm 0.06 -Wound/Ulcer Outcome Not Healed -Ulcer Cleansing Rinsed/ Irrigated with Saline -Foul Odor after Cleansing No -Bioengineered Tissue No -Bleeding Controlled with Pressure -Treatment Response Procedure Tolerated Well [See Physician Procedure note for Specifics] Pain Scale: 0-10 Numeric [Pain] -Is Patient Pain Free? Yes Debridement Note Post-Debridement Measurements/Treatment WC - Nurse 2 - General Ulcer CM Notes Start: 07/14/17 13:11 Freq: Status: Active Protocol: Activity Type Activity Date Activity User E-Sign Co-Sign Detail Recorded Client Recorded Date Recorded By Document 07/14/17 13:43 MW [id number] 07/14/17 13:49 MW 07/14/17 13:43 Wound Center Nurse 2 1-right lateral foot -Time 13:43 -Correct Patient Yes -Correct Side, Site, Position Yes -Correct Procedure Yes -Procedure Performed Yes -Type of Procedure Debridement -Clinical Debridement Subcutaneous -Post Debridement Size (cm) - Length 0.2 -Post Debridement Size (cm) - Width 0.3 -Post Debridement Size (cm) - Depth 0.2 -Total Square Cm 0.06 -Wound/Ulcer Outcome Not Healed -Ulcer Cleansing Rinsed/ Irrigated with Saline -Foul Odor after Cleansing No -Bioengineered Tissue No -Bleeding Controlled with Pressure -Treatment Response Procedure Tolerated Well Pain Scale: 0-10 Numeric Is Patient Pain Free? Yes Wound debrided: R lateral 5th met head Laterality: Right Wound Grade/Stage: bailey grade 1 full thickness DFU Type of Debridement: Excisional debridement Anesthesia Used: 4% Lidocaine Solution Depth: Down to and including healthy tissue, in the subcutaneous layer Percentage of wound debrided: 100 Instrument Used: #15 blade Tissue Removed: fibrous slough, surrounding hyperkeratotic rim Severity: Fat Layer Exposed Amount of bleeding with debridement: Mild Bleeding Controlled with: Pressure, Compression and gauze Patient tolerated procedure well Assessment/Plan Assessment: See diagnoses Plan: SQ/excisional debridement of R foot ulcer as above. Slightly improved. Continue diabetic shoes for offloading, add small aperture pad for further offloading. Cont Regranex BID, add small amount of nugauze packing into ulceration as well with dressing changes. Gently wash with soap and water then flush with saline bewtween dressing changes. Monitor for redness, pus, malodor , warmth, pain, swelling as well as N/V/F/C and go to the ED with these. Discussed importance of tight blood sugar control, adequate nutrition, especially increased protein intake, to promote healing. Discussed importance of tobacco cessation and smoking's effects on wound healing. Pt continues to smoke tobacco against advice. Return in 1 week, call wound center with questions or problems prior to f/u appt. Add moderate spandagrip bilateral lower extremities, don in AM and remove before sleep.
[2017-07-21 13:00] VITALS: BP 123/67; PULSE 67; RESP 16; TEMP 36.3
--- NOTE | 2017-07-21 13:49 | PCM.WC.PN ---
(1) Non-pressure chronic ulcer of other part of right foot with fat layer exposed Status: Acute Current Visit: No Code(s): L97.512 - Non-pressure chronic ulcer of other part of right foot with fat layer exposed (2) Type 2 diabetes mellitus with foot ulcer Status: Acute Current Visit: No Qualifiers: Code(s): E11.621 - Type 2 diabetes mellitus with foot ulcer; L97.509 - Non-pressure chronic ulcer of other part of unspecified foot with unspecified severity (3) Type 2 diabetes mellitus with diabetic polyneuropathy Status: Chronic Current Visit: No Qualifiers: Code(s): E11.42 - Type 2 diabetes mellitus with diabetic polyneuropathy Type of Wound Date of Service: 07/21/17 Chief Complaint: non-healing right foot ulcer History of Wound: 62 year old diabetic man with PAD and neuropathy presents with non-healing R foot ulcer. Had multiple other ulcerations that have subsequently healed, and actually had underlying osteomyelitis and underwent HBO treatments at [facility] in [place]. Pt is known to me from wound care visits there. He has one ulceration remaining. He is a patient of Dr. Cevallos, and is seeing him next month. Denies pus, malodor, warmth, pain. Denies N/V/F/C. Has been applying promogran every other day. Notes minimal imrovement, so we are going to switch dressings today. 06/09--Has been applying medihoney gel and dry dressing daily. Notes improvement. Denies N/V/F/C. Denies pus, malodor, warmth, pain, swelling. Notes minimal if any drainage---increase frequency to BID. 06/16--Has been applying medihoney gel and dry dressing twice daily. Notes improvement. Denies N/V/F/C. Denies pus, malodor, warmth, pain, swelling. Notes no drainage---increase frequency from BID to TID. 06/23--Used medihoney until 2-3 days ago when he started Regranex x 12 hours in the AM and lightly moistened gauze dressing at night. Ulcer stable. Denies s/s of acute bacterial infection R foot. 06/30--Using Regranex x 12 hours in the AM and medihoney with dry dressing at night. Ulcer improving. Denies s/s of acute bacterial infection R foot. 07/07--Using Regranex x 12 hours in the AM and x 12 hours at night. Ulcer improving. Denies s/s of acute bacterial infection R foot. 07/14--Using Regranex x 12 hours in the AM and x 12 hours at night. Ulcer very slowly improving. Denies s/s of acute bacterial infection R foot. 07/21--Using Regranex x 12 hours in the AM and x 12 hours at night. Ulcer was slowly improving but now unchanged. Denies s/s of acute bacterial infection R foot. However, we will obtain another x-ray today to assess the underlying bone--ordered today. We will also try promogran 3x/week instead of regranex today. Progress of Wound: Stable. - Physical Exam Vital Signs Temp Pulse Resp BP 97.3 F L 67 16 123/67 H 07/21/17 13:00 07/21/17 13:00 07/21/17 13:00 07/21/17 13:00 General: Alert, Oriented x3, Cooperative, No apparent distress Skin: Ulcer/ Wound - R lateral 5th met head with no erythema, no pus, no malodor, no increased warmth. No clinical signs of acute bacterial infection noted. See wound/edema assessment below. Wound Measurements and Assessment WC - Nurse 1 - General Ulcer Measurement Start: 07/14/17 13:11 Freq: Status: Active Protocol: Activity Type Activity Date Activity User E-Sign Co-Sign Detail Recorded Client Recorded Date Recorded By Document 07/21/17 13:00 [facility] [id number] 07/21/17 13:08 [facility] 07/21/17 13:00 Wound Center Nurse 1 [Ulcer Assessment] 1-right lateral foot -Combined with other wound No -Current Size (cm) - Length 0.2 -Current Size (cm) - Width 0.2 -Current Size (cm) - Depth 0.3 -Total Square Cm 0.04 -Photo Taken No -Epithelialization None Present -Tunneling No -Undermining/Tunneling Yes -Undermining/Tunneling Starts (O' 12 clock) -Undermining/Tunneling Ends (O'clock) 12 -Maximum Distance (cm) 0.2 -Circular Undermining Yes -Exudate Amt Small (1-33%) -Exudate Type Serosanguineous -Wound Margin Distinct, Outline Attached -Granulation Amt Medium (34-66%) -Granulation Quality [place] -Slough/Fibrin No -Necrosis Amt None Present (0 %) -Structure Exposed N/A -Texture (Zohreh-wound Skin Appearance) Callus -Moisture (Zohreh-wound Skin Appearance Maceration ) Dry/Scaly -Color (Zohreh-wound Skin Appearance) Assessed Palor -Temperature (Zohreh-wound Skin No Abnormality Appearance) (Pt Warm) -Tenderness on Palpation (Zohreh-wound No Skin Appearance) -Ulcer Cleansing Rinsed/ Irrigated with Saline -Foul Odor after Cleansing No -Anesthetic Used 4% Lidocaine Solution [Edema Assessment] -Lower Limb Edema Present No -Right Calf (cm) 39 -Right Ankle (cm) 22.4 WC - Nurse 2 - General Ulcer CM Notes Start: 07/14/17 13:11 Freq: Status: Active Protocol: Activity Type Activity Date Activity User E-Sign Co-Sign Detail Recorded Client Recorded Date Recorded By Document 07/21/17 13:29 MW [id number] 07/21/17 13:30 MW 07/21/17 13:29 Wound Center Nurse 2 [Procedure/Treatment] 1-right lateral foot -Time 13:30 -Correct Patient Yes -Correct Side, Site, Position Yes -Correct Procedure Yes -Procedure Performed Yes -Type of Procedure Debridement -Clinical Debridement Subcutaneous -Post Debridement Size (cm) - Length 0.3 -Post Debridement Size (cm) - Width 0.2 -Post Debridement Size (cm) - Depth 0.2 -Total Square Cm 0.06 -Wound/Ulcer Outcome Not Healed -Ulcer Cleansing Rinsed/ Irrigated with Saline -Foul Odor after Cleansing No -Bioengineered Tissue No -Bleeding Controlled with Pressure -Treatment Response Procedure Tolerated Well [See Physician Procedure note for Specifics] Pain Scale: 0-10 Numeric [Pain] -Is Patient Pain Free? Yes Debridement Note Post-Debridement Measurements/Treatment WC - Nurse 2 - General Ulcer CM Notes Start: 07/14/17 13:11 Freq: Status: Active Protocol: Activity Type Activity Date Activity User E-Sign Co-Sign Detail Recorded Client Recorded Date Recorded By Document 07/14/17 13:43 MW [id number] 07/14/17 13:49 MW Document 07/21/17 13:29 MW [id number] 04/10/18 13:30 MW 07/14/17 07/21/17 13:43 13:29 Wound Center Nurse 2 1-right lateral foot -Time 13:43 13:30 -Correct Patient Yes Yes -Correct Side, Site, Position Yes Yes -Correct Procedure Yes Yes -Procedure Performed Yes Yes -Type of Procedure Debridement Debridement -Clinical Debridement Subcutaneous Subcutaneous -Post Debridement Size (cm) - Length 0.2 0.3 -Post Debridement Size (cm) - Width 0.3 0.2 -Post Debridement Size (cm) - Depth 0.2 0.2 -Total Square Cm 0.06 0.06 -Wound/Ulcer Outcome Not Healed Not Healed -Ulcer Cleansing Rinsed/ Rinsed/ Irrigated with Irrigated with Saline Saline -Foul Odor after Cleansing No No -Bioengineered Tissue No No -Bleeding Controlled with Pressure Pressure -Treatment Response Procedure Procedure Tolerated Well Tolerated Well Pain Scale: 0-10 Numeric Is Patient Pain Free? Yes Yes Wound debrided: R lateral 5th met head Laterality: Right Wound Grade/Stage: Freitas grade 1 full thickness DFU Type of Debridement: Excisional debridement Anesthesia Used: 4% Lidocaine Solution Depth: Down to and including healthy tissue, in the subcutaneous layer Percentage of wound debrided: 100 Instrument Used: #11 blade Tissue Removed: fibrous slough, surrounding hyperkeratotic tissue Severity: Fat Layer Exposed Amount of bleeding with debridement: Mild Bleeding Controlled with: Pressure, Compression and gauze Patient tolerated procedure well Assessment/Plan Assessment: See diagnoses Plan: SQ/excisional debridement of R foot ulcer as above. Unchanged. Continue diabetic shoes for offloading, add small aperture pad for further offloading. Stop regranex and nugauze packing. Start promogran and dry gauze 3x/week. Gently wash with soap and water then flush with saline bewtween dressing changes. Monitor for redness, pus, malodor, warmth, pain, swelling as well as N/V/F/C and go to the ED with these. Discussed importance of tight blood sugar control, adequate nutrition, especially increased protein intake, to promote healing. Discussed importance of tobacco cessation and smoking's effects on wound healing. Pt continues to smoke tobacco against advice. Return in 1 week, call wound center with questions or problems prior to f/u appt. Cont moderate spandagrip bilateral lower extremities, don in AM and remove before sleep. 3 plain film xrays ordered R foot to assess the underlying bone R lateral 5th met head.
--- NOTE | 2017-07-21 13:54 | PN.PCM_ITS ---
(1) Non-pressure chronic ulcer of other part of right foot with fat layer exposed Status: Acute Current Visit: No Code(s): L97.512 - Non-pressure chronic ulcer of other part of right foot with fat layer exposed (2) Type 2 diabetes mellitus with foot ulcer Status: Acute Current Visit: No Qualifiers: Code(s): E11.621 - Type 2 diabetes mellitus with foot ulcer; L97.509 - Non- pressure chronic ulcer of other part of unspecified foot with unspecified severity (3) Type 2 diabetes mellitus with diabetic polyneuropathy Status: Chronic Current Visit: No Qualifiers: Code(s): E11.42 - Type 2 diabetes mellitus with diabetic polyneuropathy Type of Wound Date of Service: 07/21/17 Chief Complaint: non-healing right foot ulcer History of Wound: 62 year old diabetic man with PAD and neuropathy presents with non-healing R foot ulcer. Had multiple other ulcerations that have subsequently healed, and actually had underlying osteomyelitis and underwent HBO treatments at [facility] [place] in [place]. Pt is known to me from wound care visits there. He has one ulceration remaining. He is a patient of Dr. Cevallos, and is seeing him next month. Denies pus, malodor, warmth, pain. Denies N/V/F/C. Has been applying promogran every other day. Notes minimal imrovement, so we are going to switch dressings today. 06/09--Has been applying medihoney gel and dry dressing daily. Notes improvement. Denies N/V/F/C. Denies pus, malodor, warmth, pain, swelling. Notes minimal if any drainage--- increase frequency to BID. 06/16--Has been applying medihoney gel and dry dressing twice daily. Notes improvement. Denies N/V/F/C. Denies pus, malodor, warmth, pain, swelling. Notes no drainage---increase frequency from BID to TID. 06/23--Used medihoney until 2-3 days ago when he started Regranex x 12 hours in the AM and lightly moistened gauze dressing at night. Ulcer stable. Denies s/s of acute bacterial infection R foot. 06/30--Using Regranex x 12 hours in the AM and medihoney with dry dressing at night. Ulcer improving. Denies s/s of acute bacterial infection R foot. 07/07--Using Regranex x 12 hours in the AM and x 12 hours at night. Ulcer improving. Denies s/s of acute bacterial infection R foot. 07/14--Using Regranex x 12 hours in the AM and x 12 hours at night. Ulcer very slowly improving. Denies s/s of acute bacterial infection R foot. 07/21--Using Regranex x 12 hours in the AM and x 12 hours at night. Ulcer was slowly improving but now unchanged. Denies s/s of acute bacterial infection R foot. However, we will obtain another x-ray today to assess the underlying bone--ordered today. We will also try promogran 3x/week instead of regranex today. Progress of Wound: Stable. - Physical Exam Vital Signs Temp Pulse Resp BP 97.3 F L 67 16 123/67 H 07/21/17 13:00 07/21/17 13:00 07/21/17 13:00 07/21/17 13:00 General: Alert, Oriented x3, Cooperative, No apparent distress Skin: Ulcer/ Wound - R lateral 5th met head with no erythema, no pus, no malodor , no increased warmth. No clinical signs of acute bacterial infection noted. See wound/edema assessment below. Wound Measurements and Assessment WC - Nurse 1 - General Ulcer Measurement Start: 07/14/17 13:11 Freq: Status: Active Protocol: Activity Type Activity Date Activity User E-Sign Co-Sign Detail Recorded Client Recorded Date Recorded By Document 07/21/17 13:00 [facility] [id number] 07/21/17 13:08 [facility] 07/21/17 13:00 Wound Center Nurse 1 [Ulcer Assessment] 1-right lateral foot -Combined with other wound No -Current Size (cm) - Length 0.2 -Current Size (cm) - Width 0.2 -Current Size (cm) - Depth 0.3 -Total Square Cm 0.04 -Photo Taken No -Epithelialization None Present -Tunneling No -Undermining/Tunneling Yes -Undermining/Tunneling Starts (O' 12 clock) -Undermining/Tunneling Ends (O'clock) 12 -Maximum Distance (cm) 0.2 -Circular Undermining Yes -Exudate Amt Small (1-33%) -Exudate Type Serosanguineous -Wound Margin Distinct, Outline Attached -Granulation Amt Medium (34-66%) -Granulation Quality [place] -Slough/Fibrin No -Necrosis Amt None Present (0 %) -Structure Exposed N/A -Texture (Zohreh-wound Skin Appearance) Callus -Moisture (Zohreh-wound Skin Appearance Maceration ) Dry/Scaly -Color (Zohreh-wound Skin Appearance) Assessed Palor -Temperature (Zohreh-wound Skin No Abnormality Appearance) (Pt Warm) -Tenderness on Palpation (Zohreh-wound No Skin Appearance) -Ulcer Cleansing Rinsed/ Irrigated with Saline -Foul Odor after Cleansing No -Anesthetic Used 4% Lidocaine Solution [Edema Assessment] -Lower Limb Edema Present No -Right Calf (cm) 39 -Right Ankle (cm) 22.4 WC - Nurse 2 - General Ulcer CM Notes Start: 07/14/17 13:11 Freq: Status: Active Protocol: Activity Type Activity Date Activity User E-Sign Co-Sign Detail Recorded Client Recorded Date Recorded By Document 07/21/17 13:29 MW [id number] 07/21/17 13:30 MW 07/21/17 13:29 Wound Center Nurse 2 [Procedure/Treatment] 1-right lateral foot -Time 13:30 -Correct Patient Yes -Correct Side, Site, Position Yes -Correct Procedure Yes -Procedure Performed Yes -Type of Procedure Debridement -Clinical Debridement Subcutaneous -Post Debridement Size (cm) - Length 0.3 -Post Debridement Size (cm) - Width 0.2 -Post Debridement Size (cm) - Depth 0.2 -Total Square Cm 0.06 -Wound/Ulcer Outcome Not Healed -Ulcer Cleansing Rinsed/ Irrigated with Saline -Foul Odor after Cleansing No -Bioengineered Tissue No -Bleeding Controlled with Pressure -Treatment Response Procedure Tolerated Well [See Physician Procedure note for Specifics] Pain Scale: 0-10 Numeric [Pain] -Is Patient Pain Free? Yes Debridement Note Post-Debridement Measurements/Treatment WC - Nurse 2 - General Ulcer CM Notes Start: 07/14/17 13:11 Freq: Status: Active Protocol: Activity Type Activity Date Activity User E-Sign Co-Sign Detail Recorded Client Recorded Date Recorded By Document 07/14/17 13:43 MW [id number] 07/14/17 13:49 MW Document 07/21/17 13:29 MW [id number] 04/10/18 13:30 MW 07/14/17 07/21/17 13:43 13:29 Wound Center Nurse 2 1-right lateral foot -Time 13:43 13:30 -Correct Patient Yes Yes -Correct Side, Site, Position Yes Yes -Correct Procedure Yes Yes -Procedure Performed Yes Yes -Type of Procedure Debridement Debridement -Clinical Debridement Subcutaneous Subcutaneous -Post Debridement Size (cm) - Length 0.2 0.3 -Post Debridement Size (cm) - Width 0.3 0.2 -Post Debridement Size (cm) - Depth 0.2 0.2 -Total Square Cm 0.06 0.06 -Wound/Ulcer Outcome Not Healed Not Healed -Ulcer Cleansing Rinsed/ Rinsed/ Irrigated with Irrigated with Saline Saline -Foul Odor after Cleansing No No -Bioengineered Tissue No No -Bleeding Controlled with Pressure Pressure -Treatment Response Procedure Procedure Tolerated Well Tolerated Well Pain Scale: 0-10 Numeric Is Patient Pain Free? Yes Yes Wound debrided: R lateral 5th met head Laterality: Right Wound Grade/Stage: Freitas grade 1 full thickness DFU Type of Debridement: Excisional debridement Anesthesia Used: 4% Lidocaine Solution Depth: Down to and including healthy tissue, in the subcutaneous layer Percentage of wound debrided: 100 Instrument Used: #11 blade Tissue Removed: fibrous slough, surrounding hyperkeratotic tissue Severity: Fat Layer Exposed Amount of bleeding with debridement: Mild Bleeding Controlled with: Pressure, Compression and gauze Patient tolerated procedure well Assessment/Plan Assessment: See diagnoses Plan: SQ/excisional debridement of R foot ulcer as above. Unchanged. Continue diabetic shoes for offloading, add small aperture pad for further offloading. Stop regranex and nugauze packing. Start promogran and dry gauze 3x/week. Gently wash with soap and water then flush with saline bewtween dressing changes. Monitor for redness, pus, malodor, warmth, pain, swelling as well as N /V/F/C and go to the ED with these. Discussed importance of tight blood sugar control, adequate nutrition, especially increased protein intake, to promote healing. Discussed importance of tobacco cessation and smoking's effects on wound healing. Pt continues to smoke tobacco against advice. Return in 1 week , call wound center with questions or problems prior to f/u appt. Cont moderate spandagrip bilateral lower extremities, don in AM and remove before sleep. 3 plain film xrays ordered R foot to assess the underlying bone R lateral 5th met head.
--- NOTE | 2017-07-25 11:57 | RAD_ITS ---
STUDY: X-RAY - RIGHT FOOT CLINICAL: Male, 62 years old. non healing rt 5th metatarsal ulcer TECHNIQUE: 3 view(s) of the foot. COMPARISON: None. FINDINGS: There is a plantar calcaneal spur. There is an enthesophyte involving the posterior superior calcaneus at the site of insertion of the Achilles tendon. Normal visualized subtalar, talonavicular, calcaneocuboid, tarsal and tarsometatarsal articulations. Normal metatarsi. Normal metatarsophalangeal joint of the great toe. Normal tibial and fibular sesamoid bones. Normal interphalangeal joint of the great toe. Normal phalanges of the great toe. Normal second through fifth metatarsophalangeal joints. There is erosion of the head of the fifth proximal phalanx. There are erosive changes involving the base of the fifth distal phalanx. Soft tissue swelling around the fifth digit. Soft tissue ulceration visualized overlying the fifth digit. RAD/Foot min 3 Views IMPRESSION: Erosive changes of the fifth proximal and distal phalanx. Osteomyelitis is of concern. There is soft tissue swelling and ulceration overlying the fifth digit. Electronically Signed: Humberto Starkey MD at 16:44 EDT , Service support ,
[2017-07-28 12:57] VITALS: BP 133/82; PULSE 60; RESP 16; TEMP 35.8
--- NOTE | 2017-07-28 15:02 | PCM.WC.PN ---
(1) Non-pressure chronic ulcer of other part of right foot with fat layer exposed Status: Acute Current Visit: No Code(s): L97.512 - Non-pressure chronic ulcer of other part of right foot with fat layer exposed (2) Type 2 diabetes mellitus with foot ulcer Status: Acute Current Visit: No Qualifiers: Code(s): E11.621 - Type 2 diabetes mellitus with foot ulcer; L97.509 - Non-pressure chronic ulcer of other part of unspecified foot with unspecified severity (3) Type 2 diabetes mellitus with diabetic polyneuropathy Status: Chronic Current Visit: No Qualifiers: Code(s): E11.42 - Type 2 diabetes mellitus with diabetic polyneuropathy Type of Wound Date of Service: 07/28/17 Chief Complaint: non-healing right foot ulcer History of Wound: 62 year old diabetic man with PAD and neuropathy presents with non-healing R foot ulcer. Had multiple other ulcerations that have subsequently healed, and actually had underlying osteomyelitis and underwent HBO treatments at [facility] in [place]. Pt is known to me from wound care visits there. He has one ulceration remaining. He is a patient of Dr. Cevallos, and is seeing him next month. Denies pus, malodor, warmth, pain. Denies N/V/F/C. Has been applying promogran every other day. Notes minimal imrovement, so we are going to switch dressings today. 06/09--Has been applying medihoney gel and dry dressing daily. Notes improvement. Denies N/V/F/C. Denies pus, malodor, warmth, pain, swelling. Notes minimal if any drainage---increase frequency to BID. 06/16--Has been applying medihoney gel and dry dressing twice daily. Notes improvement. Denies N/V/F/C. Denies pus, malodor, warmth, pain, swelling. Notes no drainage---increase frequency from BID to TID. 06/23--Used medihoney until 2-3 days ago when he started Regranex x 12 hours in the AM and lightly moistened gauze dressing at night. Ulcer stable. Denies s/s of acute bacterial infection R foot. 06/30--Using Regranex x 12 hours in the AM and medihoney with dry dressing at night. Ulcer improving. Denies s/s of acute bacterial infection R foot. 07/07--Using Regranex x 12 hours in the AM and x 12 hours at night. Ulcer improving. Denies s/s of acute bacterial infection R foot. 07/14--Using Regranex x 12 hours in the AM and x 12 hours at night. Ulcer very slowly improving. Denies s/s of acute bacterial infection R foot. 07/21--Using Regranex x 12 hours in the AM and x 12 hours at night. Ulcer was slowly improving but now unchanged. Denies s/s of acute bacterial infection R foot. However, we will obtain another x-ray today to assess the underlying bone--ordered today. We will also try promogran 3x/week instead of regranex today. 07/28--Denies s/s of acute bacterial infection R foot. X-rays negative for osteomyelitis of the R 5th met head. Using promogran 3x/week. C/o pain while wearing his shoe--ulcer likely nonhealing due to pressure in shoe, but pt states he is unable to take any time off work and is unable to wear anything but a closed-toe shoe to work. Will try larger aperture pad today. Progress of Wound: Stable. - Physical Exam Vital Signs Temp Pulse Resp BP 96.4 F L 60 16 133/82 H 07/28/17 12:57 07/28/17 12:57 07/28/17 12:57 07/28/17 12:57 General: Alert, Oriented x3, Cooperative, No apparent distress Skin: Ulcer/ Wound - R lateral 5th met head with no erythema, no calor, no purulent drainage, no malodor, minimal pain. No clinical signs of acute bacterial infection noted. See wound/edema assessment below. Wound Measurements and Assessment WC - Nurse 1 - General Ulcer Measurement Start: 07/14/17 13:11 Freq: Status: Active Protocol: Activity Type Activity Date Activity User E-Sign Co-Sign Detail Recorded Client Recorded Date Recorded By Document 07/28/17 12:57 [facility] [id number] 07/28/17 13:03 [facility] 07/28/17 12:57 Wound Center Nurse 1 [Ulcer Assessment] 1-right lateral foot -Combined with other wound No -Current Size (cm) - Length 0.3 -Current Size (cm) - Width 0.2 -Current Size (cm) - Depth 0.3 -Total Square Cm 0.06 -Photo Taken No -Epithelialization None Present -Tunneling No -Undermining/Tunneling No -Circular Undermining No -Exudate Amt Small (1-33%) -Exudate Type Serosanguineous -Wound Margin Distinct, Outline Attached -Granulation Amt Medium (34-66%) -Granulation Quality [place] -Slough/Fibrin Yes -Necrosis Amt Small (1-33%) -Necrotic Tissue Type Adherent Slough -Texture (Zohreh-wound Skin Appearance) Callus Scarring -Moisture (Zohreh-wound Skin Appearance Maceration ) Dry/Scaly -Color (Zohreh-wound Skin Appearance) Palor -Temperature (Zohreh-wound Skin No Abnormality Appearance) (Pt Warm) -Tenderness on Palpation (Zohreh-wound No Skin Appearance) -Ulcer Cleansing Rinsed/ Irrigated with Saline -Foul Odor after Cleansing No -Anesthetic Used 5% Lidocaine Gel [Edema Assessment] -Lower Limb Edema Present No -Right Calf (cm) 39.6 -Right Ankle (cm) 22.3 WC - Nurse 2 - General Ulcer CM Notes Start: 07/14/17 13:11 Freq: Status: Active Protocol: Activity Type Activity Date Activity User E-Sign Co-Sign Detail Recorded Client Recorded Date Recorded By Document 07/28/17 13:26 MW [id number] 07/28/17 13:28 MW 07/28/17 13:26 Wound Center Nurse 2 [Procedure/Treatment] 1-right lateral foot -Time 13:27 -Correct Patient Yes -Correct Side, Site, Position Yes -Correct Procedure Yes -Procedure Performed Yes -Type of Procedure Debridement -Clinical Debridement Subcutaneous -Post Debridement Size (cm) - Length 0.5 -Post Debridement Size (cm) - Width 0.3 -Post Debridement Size (cm) - Depth 0.2 -Total Square Cm 0.15 -Wound/Ulcer Outcome Not Healed -Ulcer Cleansing Rinsed/ Irrigated with Saline -Foul Odor after Cleansing No -Bioengineered Tissue No -Bleeding Controlled with Pressure -Treatment Response Procedure Tolerated Well [See Physician Procedure note for Specifics] Pain Scale: 0-10 Numeric [Pain] -Is Patient Pain Free? Yes Debridement Note Post-Debridement Measurements/Treatment WC - Nurse 2 - General Ulcer CM Notes Start: 07/14/17 13:11 Freq: Status: Active Protocol: Activity Type Activity Date Activity User E-Sign Co-Sign Detail Recorded Client Recorded Date Recorded By Document 07/14/17 13:43 MW [id number] 07/14/17 13:49 MW Document 07/21/17 13:29 MW [id number] 07/21/17 13:30 MW Document 07/28/17 13:26 MW [id number] 07/28/17 13:28 MW 07/14/17 07/21/17 07/28/17 13:43 13:29 13:26 Wound Center Nurse 2 1-right lateral foot -Time 13:43 13:30 13:27 -Correct Patient Yes Yes Yes -Correct Side, Site, Position Yes Yes Yes -Correct Procedure Yes Yes Yes -Procedure Performed Yes Yes Yes -Type of Procedure Debridement Debridement Debridement -Clinical Debridement Subcutaneous Subcutaneous Subcutaneous -Post Debridement Size (cm) - Length 0.2 0.3 0.5 -Post Debridement Size (cm) - Width 0.3 0.2 0.3 -Post Debridement Size (cm) - Depth 0.2 0.2 0.2 -Total Square Cm 0.06 0.06 0.15 -Wound/Ulcer Outcome Not Healed Not Healed Not Healed -Ulcer Cleansing Rinsed/ Rinsed/ Rinsed/ Irrigated with Irrigated with Irrigated with Saline Saline Saline -Foul Odor after Cleansing No No No -Bioengineered Tissue No No No -Bleeding Controlled with Pressure Pressure Pressure -Treatment Response Procedure Procedure Procedure Tolerated Well Tolerated Well Tolerated Well Pain Scale: 0-10 Numeric Is Patient Pain Free? Yes Yes Yes Wound debrided: R lateral 5th met head Laterality: Right Wound Grade/Stage: Freitas grade 1 full thickness DFU Type of Debridement: Excisional debridement Anesthesia Used: 4% Lidocaine Solution Depth: Down to and including healthy tissue, in the subcutaneous layer Percentage of wound debrided: 100 Instrument Used: #15 blade Tissue Removed: fibrous slough, surrounding hyperkeratotic rim Severity: Fat Layer Exposed Amount of bleeding with debridement: Mild Bleeding Controlled with: Pressure, Compression and gauze Patient tolerated procedure well Assessment/Plan Clinical Impression(s) from Imaging Studies Foot X-Ray 07/25/17 11:57 IMPRESSION: Erosive changes of the fifth proximal and distal phalanx. Osteomyelitis is of concern. There is soft tissue swelling and ulceration overlying the fifth digit. Electronically Signed: Humberto Starkey MD at 16:44 EDT , Service support , Assessment: See diagnoses Plan: SQ/excisional debridement of R foot ulcer as above. Unchanged. Continue diabetic shoes for offloading (pt states he is unable to wear any other shoe to work), add large aperture pad for further offloading. Cont promogran and dry gauze 3x/week. Gently wash with soap and water then flush with saline with dressing changes. Monitor for redness, pus, malodor, warmth, pain, swelling as well as N/V/F/C and go to the ED with these. Discussed importance of tight blood sugar control, adequate nutrition, especially increased protein intake, to promote healing. Discussed importance of tobacco cessation and smoking's effects on wound healing. Pt continues to smoke tobacco against advice. Return in 1 week, call wound center with questions or problems prior to f/u appt. Cont moderate spandagrip bilateral lower extremities, don in AM and remove before sleep. X-rays reviewed.
--- NOTE | 2017-07-28 15:05 | PN.PCM_ITS ---
(1) Non-pressure chronic ulcer of other part of right foot with fat layer exposed Status: Acute Current Visit: No Code(s): L97.512 - Non-pressure chronic ulcer of other part of right foot with fat layer exposed (2) Type 2 diabetes mellitus with foot ulcer Status: Acute Current Visit: No Qualifiers: Code(s): E11.621 - Type 2 diabetes mellitus with foot ulcer; L97.509 - Non- pressure chronic ulcer of other part of unspecified foot with unspecified severity (3) Type 2 diabetes mellitus with diabetic polyneuropathy Status: Chronic Current Visit: No Qualifiers: Code(s): E11.42 - Type 2 diabetes mellitus with diabetic polyneuropathy Type of Wound Date of Service: 07/28/17 Chief Complaint: non-healing right foot ulcer History of Wound: 62 year old diabetic man with PAD and neuropathy presents with non-healing R foot ulcer. Had multiple other ulcerations that have subsequently healed, and actually had underlying osteomyelitis and underwent HBO treatments at [facility] in [place]. Pt is known to me from wound care visits there. He has one ulceration remaining. He is a patient of Dr. Cevallos, and is seeing him next month. Denies pus, malodor, warmth, pain. Denies N/V/F/C. Has been applying promogran every other day. Notes minimal imrovement, so we are going to switch dressings today. 06/09--Has been applying medihoney gel and dry dressing daily. Notes improvement. Denies N/V/F/C. Denies pus, malodor, warmth, pain, swelling. Notes minimal if any drainage--- increase frequency to BID. 06/16--Has been applying medihoney gel and dry dressing twice daily. Notes improvement. Denies N/V/F/C. Denies pus, malodor, warmth, pain, swelling. Notes no drainage---increase frequency from BID to TID. 06/23--Used medihoney until 2-3 days ago when he started Regranex x 12 hours in the AM and lightly moistened gauze dressing at night. Ulcer stable. Denies s/s of acute bacterial infection R foot. 06/30--Using Regranex x 12 hours in the AM and medihoney with dry dressing at night. Ulcer improving. Denies s/s of acute bacterial infection R foot. 07/07--Using Regranex x 12 hours in the AM and x 12 hours at night. Ulcer improving. Denies s/s of acute bacterial infection R foot. 07/14--Using Regranex x 12 hours in the AM and x 12 hours at night. Ulcer very slowly improving. Denies s/s of acute bacterial infection R foot. 07/21--Using Regranex x 12 hours in the AM and x 12 hours at night. Ulcer was slowly improving but now unchanged. Denies s/s of acute bacterial infection R foot. However, we will obtain another x-ray today to assess the underlying bone--ordered today. We will also try promogran 3x/week instead of regranex today. 07/28--Denies s/s of acute bacterial infection R foot. X-rays negative for osteomyelitis of the R 5th met head. Using promogran 3x/week. C/o pain while wearing his shoe--ulcer likely nonhealing due to pressure in shoe, but pt states he is unable to take any time off work and is unable to wear anything but a closed-toe shoe to work. Will try larger aperture pad today. Progress of Wound: Stable. - Physical Exam Vital Signs Temp Pulse Resp BP 96.4 F L 60 16 133/82 H 07/28/17 12:57 07/28/17 12:57 07/28/17 12:57 07/28/17 12:57 General: Alert, Oriented x3, Cooperative, No apparent distress Skin: Ulcer/ Wound - R lateral 5th met head with no erythema, no calor, no purulent drainage, no malodor, minimal pain. No clinical signs of acute bacterial infection noted. See wound/edema assessment below. Wound Measurements and Assessment WC - Nurse 1 - General Ulcer Measurement Start: 07/14/17 13:11 Freq: Status: Active Protocol: Activity Type Activity Date Activity User E-Sign Co-Sign Detail Recorded Client Recorded Date Recorded By Document 07/28/17 12:57 [facility] [id number] 07/28/17 13:03 [facility] 07/28/17 12:57 Wound Center Nurse 1 [Ulcer Assessment] 1-right lateral foot -Combined with other wound No -Current Size (cm) - Length 0.3 -Current Size (cm) - Width 0.2 -Current Size (cm) - Depth 0.3 -Total Square Cm 0.06 -Photo Taken No -Epithelialization None Present -Tunneling No -Undermining/Tunneling No -Circular Undermining No -Exudate Amt Small (1-33%) -Exudate Type Serosanguineous -Wound Margin Distinct, Outline Attached -Granulation Amt Medium (34-66%) -Granulation Quality [place] -Slough/Fibrin Yes -Necrosis Amt Small (1-33%) -Necrotic Tissue Type Adherent Slough -Texture (Zohreh-wound Skin Appearance) Callus Scarring -Moisture (Zohreh-wound Skin Appearance Maceration ) Dry/Scaly -Color (Zohreh-wound Skin Appearance) Palor -Temperature (Zohreh-wound Skin No Abnormality Appearance) (Pt Warm) -Tenderness on Palpation (Zohreh-wound No Skin Appearance) -Ulcer Cleansing Rinsed/ Irrigated with Saline -Foul Odor after Cleansing No -Anesthetic Used 5% Lidocaine Gel [Edema Assessment] -Lower Limb Edema Present No -Right Calf (cm) 39.6 -Right Ankle (cm) 22.3 WC - Nurse 2 - General Ulcer CM Notes Start: 07/14/17 13:11 Freq: Status: Active Protocol: Activity Type Activity Date Activity User E-Sign Co-Sign Detail Recorded Client Recorded Date Recorded By Document 07/28/17 13:26 MW [id number] 07/28/17 13:28 MW 07/28/17 13:26 Wound Center Nurse 2 [Procedure/Treatment] 1-right lateral foot -Time 13:27 -Correct Patient Yes -Correct Side, Site, Position Yes -Correct Procedure Yes -Procedure Performed Yes -Type of Procedure Debridement -Clinical Debridement Subcutaneous -Post Debridement Size (cm) - Length 0.5 -Post Debridement Size (cm) - Width 0.3 -Post Debridement Size (cm) - Depth 0.2 -Total Square Cm 0.15 -Wound/Ulcer Outcome Not Healed -Ulcer Cleansing Rinsed/ Irrigated with Saline -Foul Odor after Cleansing No -Bioengineered Tissue No -Bleeding Controlled with Pressure -Treatment Response Procedure Tolerated Well [See Physician Procedure note for Specifics] Pain Scale: 0-10 Numeric [Pain] -Is Patient Pain Free? Yes Debridement Note Post-Debridement Measurements/Treatment WC - Nurse 2 - General Ulcer CM Notes Start: 07/14/17 13:11 Freq: Status: Active Protocol: Activity Type Activity Date Activity User E-Sign Co-Sign Detail Recorded Client Recorded Date Recorded By Document 07/14/17 13:43 MW [id number] 07/14/17 13:49 MW Document 07/21/17 13:29 MW [id number] 07/21/17 13:30 MW Document 07/28/17 13:26 MW [id number] 07/28/17 13:28 MW 07/14/17 07/21/17 07/28/17 13:43 13:29 13:26 Wound Center Nurse 2 1-right lateral foot -Time 13:43 13:30 13:27 -Correct Patient Yes Yes Yes -Correct Side, Site, Position Yes Yes Yes -Correct Procedure Yes Yes Yes -Procedure Performed Yes Yes Yes -Type of Procedure Debridement Debridement Debridement -Clinical Debridement Subcutaneous Subcutaneous Subcutaneous -Post Debridement Size (cm) - Length 0.2 0.3 0.5 -Post Debridement Size (cm) - Width 0.3 0.2 0.3 -Post Debridement Size (cm) - Depth 0.2 0.2 0.2 -Total Square Cm 0.06 0.06 0.15 -Wound/Ulcer Outcome Not Healed Not Healed Not Healed -Ulcer Cleansing Rinsed/ Rinsed/ Rinsed/ Irrigated with Irrigated with Irrigated with Saline Saline Saline -Foul Odor after Cleansing No No No -Bioengineered Tissue No No No -Bleeding Controlled with Pressure Pressure Pressure -Treatment Response Procedure Procedure Procedure Tolerated Well Tolerated Well Tolerated Well Pain Scale: 0-10 Numeric Is Patient Pain Free? Yes Yes Yes Wound debrided: R lateral 5th met head Laterality: Right Wound Grade/Stage: Freitas grade 1 full thickness DFU Type of Debridement: Excisional debridement Anesthesia Used: 4% Lidocaine Solution Depth: Down to and including healthy tissue, in the subcutaneous layer Percentage of wound debrided: 100 Instrument Used: #15 blade Tissue Removed: fibrous slough, surrounding hyperkeratotic rim Severity: Fat Layer Exposed Amount of bleeding with debridement: Mild Bleeding Controlled with: Pressure, Compression and gauze Patient tolerated procedure well Assessment/Plan Clinical Impression(s) from Imaging Studies Foot X-Ray 07/25/17 11:57 IMPRESSION: Erosive changes of the fifth proximal and distal phalanx. Osteomyelitis is of concern. There is soft tissue swelling and ulceration overlying the fifth digit. Electronically Signed: Humberto Starkey MD at 16:44 EDT , Service support , Assessment: See diagnoses Plan: SQ/excisional debridement of R foot ulcer as above. Unchanged. Continue diabetic shoes for offloading (pt states he is unable to wear any other shoe to work), add large aperture pad for further offloading. Cont promogran and dry gauze 3x/week. Gently wash with soap and water then flush with saline with dressing changes. Monitor for redness, pus, malodor, warmth, pain, swelling as well as N/V/F/C and go to the ED with these. Discussed importance of tight blood sugar control, adequate nutrition, especially increased protein intake, to promote healing. Discussed importance of tobacco cessation and smoking's effects on wound healing. Pt continues to smoke tobacco against advice. Return in 1 week, call wound center with questions or problems prior to f/u appt. Cont moderate spandagrip bilateral lower extremities, don in AM and remove before sleep. X-rays reviewed.
[2017-08-04 12:59] VITALS: BP 138/68; PULSE 69; RESP 18; TEMP 36
--- NOTE | 2017-08-04 14:21 | PCM.WC.PN ---
(1) Non-pressure chronic ulcer of other part of right foot with fat layer exposed Status: Acute Current Visit: No Code(s): L97.512 - Non-pressure chronic ulcer of other part of right foot with fat layer exposed (2) Type 2 diabetes mellitus with foot ulcer Status: Acute Current Visit: No Qualifiers: Diabetes mellitus retirement insulin use: unspecified retirement insulin use status Code(s): E11.621 - Type 2 diabetes mellitus with foot ulcer; L97.509 - Non-pressure chronic ulcer of other part of unspecified foot with unspecified severity (3) Type 2 diabetes mellitus with diabetic polyneuropathy Status: Chronic Current Visit: No Qualifiers: Diabetes mellitus 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 Had multiple other ulcerations that have subsequently healed, and actually had underlying osteomyelitis and underwent HBO treatments at [facility] in [place]. Pt is known to me from wound care visits there. He has one ulceration remaining. He is a patient of Dr. Stephenss, and is seeing him next month. Denies pus, malodor, warmth, pain. Denies N/V/F/C. Has been applying promogran every other day. Notes minimal imrovement, so we are going to switch dressings today. 06/09--Has been applying medihoney gel and dry dressing daily. Notes improvement. Denies N/V/F/C. Denies pus, malodor, warmth, pain, swelling. Notes minimal if any drainage---increase frequency to BID. 06/16--Has been applying medihoney gel and dry dressing twice daily. Notes improvement. Denies N/V/F/C. Denies pus, malodor, warmth, pain, swelling. Notes no drainage---increase frequency from BID to TID. 06/23--Used medihoney until 2-3 days ago when he started Regranex x 12 hours in the AM and lightly moistened gauze dressing at night. Ulcer stable. Denies s/s of acute bacterial infection R foot. 06/30--Using Regranex x 12 hours in the AM and medihoney with dry dressing at night. Ulcer improving. Denies s/s of acute bacterial infection R foot. 07/07--Using Regranex x 12 hours in the AM and x 12 hours at night. Ulcer improving. Denies s/s of acute bacterial infection R foot. 07/14--Using Regranex x 12 hours in the AM and x 12 hours at night. Ulcer very slowly improving. Denies s/s of acute bacterial infection R foot. 07/21--Using Regranex x 12 hours in the AM and x 12 hours at night. Ulcer was slowly improving but now unchanged. Denies s/s of acute bacterial infection R foot. However, we will obtain another x-ray today to assess the underlying bone--ordered today. We will also try promogran 3x/week instead of regranex today. 07/28--Denies s/s of acute bacterial infection R foot. X-rays negative for osteomyelitis of the R 5th met head. Using promogran 3x/week. C/o pain while wearing his shoe--ulcer likely nonhealing due to pressure in shoe, but pt states he is unable to take any time off work and is unable to wear anything but a closed-toe shoe to work. Will try larger aperture pad today. 08/04--Denies s/s of acute bacterial infection R foot. X-rays negative for osteomyelitis of the R 5th met head. Using promogran 3x/week. Pain improved today. Ulcer measurements improved today. Progress of Wound: Improved today. - Physical Exam Vital Signs Temp Pulse Resp BP 96.8 F L 69 18 138/68 H 08/04/17 12:59 08/04/17 12:59 08/04/17 12:59 08/04/17 12:59 General: Alert, Oriented x3, Cooperative, No apparent distress Skin: Ulcer/ Wound - Ulceration R lateral 5th met head with no erythema, no calor, no purulent drainage, no malodor, minimal pain. No clinical signs of acute bacterial infection noted. See wound/edema assessment below. Wound Measurements and Assessment WC - Nurse 1 - General Ulcer Measurement Start: 07/14/17 13:11 Freq: Status: Active Protocol: Activity Type Activity Date Activity User E-Sign Co-Sign Detail Recorded Client Recorded Date Recorded By Document 08/04/17 12:59 [facility] [id number] 08/04/17 13:08 [facility] 08/04/17 12:59 Wound Center Nurse 1 [Ulcer Assessment] 1-right lateral foot -Combined with other wound No -Current Size (cm) - Length 0.3 -Current Size (cm) - Width 0.2 -Current Size (cm) - Depth 0.2 -Total Square Cm 0.06 -Photo Taken No -Epithelialization None Present -Tunneling No -Undermining/Tunneling Yes -Undermining/Tunneling Starts (O' 12 clock) -Undermining/Tunneling Ends (O'clock) 12 -Maximum Distance (cm) 0.2 -Circular Undermining Yes -Exudate Amt Small (1-33%) -Exudate Type Serosanguineous -Wound Margin Distinct, Outline Attached -Granulation Amt Large (67-100%) -Granulation Quality [place] -Slough/Fibrin No -Necrosis Amt Small (1-33%) -Necrotic Tissue Type Adherent Slough -Texture (Zohreh-wound Skin Appearance) Callus Scarring -Moisture (Zohreh-wound Skin Appearance Dry/Scaly ) -Color (Zohreh-wound Skin Appearance) Assessed -Temperature (Zohreh-wound Skin No Abnormality Appearance) (Pt Warm) -Tenderness on Palpation (Zohreh-wound No Skin Appearance) -Ulcer Cleansing Rinsed/ Irrigated with Saline -Foul Odor after Cleansing No -Anesthetic Used 5% Lidocaine Gel [Edema Assessment] -Lower Limb Edema Present Yes -Right Calf (cm) 39 -Right Ankle (cm) 22.4 WC - Nurse 2 - General Ulcer CM Notes Start: 07/14/17 13:11 Freq: Status: Active Protocol: Activity Type Activity Date Activity User E-Sign Co-Sign Detail Recorded Client Recorded Date Recorded By Document 08/04/17 13:29 DV [id number] 08/04/17 13:32 DV 08/04/17 13:29 Wound Center Nurse 2 [Procedure/Treatment] 1-right lateral foot -Time 13:31 -Correct Patient Yes -Correct Side, Site, Position Yes -Correct Procedure Yes -Procedure Performed Yes -Type of Procedure Debridement -Clinical Debridement Subcutaneous -Post Debridement Size (cm) - Length 0.3 -Post Debridement Size (cm) - Width 0.2 -Post Debridement Size (cm) - Depth 0.2 -Total Square Cm 0.06 -Wound/Ulcer Outcome Not Healed -Ulcer Cleansing Rinsed/ Irrigated with Saline -Foul Odor after Cleansing No -Bioengineered Tissue No -Bleeding Controlled with Pressure -Treatment Response Procedure Tolerated Well [See Physician Procedure note for Specifics] Pain Scale: 0-10 Numeric [Pain] -Is Patient Pain Free? Yes Debridement Note Post-Debridement Measurements/Treatment WC - Nurse 2 - General Ulcer CM Notes Start: 07/14/17 13:11 Freq: Status: Active Protocol: Activity Type Activity Date Activity User E-Sign Co-Sign Detail Recorded Client Recorded Date Recorded By Document 07/14/17 13:43 MW [id number] 07/14/17 13:49 MW Document 07/21/17 13:29 MW [id number] 07/21/17 13:30 MW Document 07/28/17 13:26 MW [id number] 07/28/17 13:28 MW Document 08/04/17 13:29 DV [id number] 08/04/17 13:32 DV 07/14/17 07/21/17 07/28/17 13:43 13:29 13:26 Wound Center Nurse 2 1-right lateral foot -Time 13:43 13:30 13:27 -Correct Patient Yes Yes Yes -Correct Side, Site, Position Yes Yes Yes -Correct Procedure Yes Yes Yes -Procedure Performed Yes Yes Yes -Type of Procedure Debridement Debridement Debridement -Clinical Debridement Subcutaneous Subcutaneous Subcutaneous -Post Debridement Size (cm) - Length 0.2 0.3 0.5 -Post Debridement Size (cm) - Width 0.3 0.2 0.3 -Post Debridement Size (cm) - Depth 0.2 0.2 0.2 -Total Square Cm 0.06 0.06 0.15 -Wound/Ulcer Outcome Not Healed Not Healed Not Healed -Ulcer Cleansing Rinsed/ Rinsed/ Rinsed/ Irrigated with Irrigated with Irrigated with Saline Saline Saline -Foul Odor after Cleansing No No No -Bioengineered Tissue No No No -Bleeding Controlled with Pressure Pressure Pressure -Treatment Response Procedure Procedure Procedure Tolerated Well Tolerated Well Tolerated Well Pain Scale: 0-10 Numeric Is Patient Pain Free? Yes Yes Yes 08/04/17 13:29 Wound Center Nurse 2 1-right lateral foot -Time 13:31 -Correct Patient Yes -Correct Side, Site, Position Yes -Correct Procedure Yes -Procedure Performed Yes -Type of Procedure Debridement -Clinical Debridement Subcutaneous -Post Debridement Size (cm) - Length 0.3 -Post Debridement Size (cm) - Width 0.2 -Post Debridement Size (cm) - Depth 0.2 -Total Square Cm 0.06 -Wound/Ulcer Outcome Not Healed -Ulcer Cleansing Rinsed/ Irrigated with Saline -Foul Odor after Cleansing No -Bioengineered Tissue No -Bleeding Controlled with Pressure -Treatment Response Procedure Tolerated Well Pain Scale: 0-10 Numeric Is Patient Pain Free? Yes Wound debrided: R lateral 5th met head Laterality: Right Wound Grade/Stage: Freitas grade 1 full thickness DFU Type of Debridement: Excisional debridement Anesthesia Used: 4% Lidocaine Solution Depth: Down to and including healthy tissue, in the subcutaneous layer Percentage of wound debrided: 100 Instrument Used: #15 blade Tissue Removed: fibrous slough, surrounding thin hyperkeratotic rim Severity: Fat Layer Exposed Amount of bleeding with debridement: Mild Bleeding Controlled with: Pressure, Compression and gauze Patient tolerated procedure well Assessment/Plan Clinical Impression(s) from Imaging Studies Foot X-Ray 07/25/17 11:57 IMPRESSION: Erosive changes of the fifth proximal and distal phalanx. Osteomyelitis is of concern. There is soft tissue swelling and ulceration overlying the fifth digit. Electronically Signed: Humberto Starkey MD at 16:44 EDT , Service support , Assessment: See diagnoses Plan: SQ/excisional debridement of R foot ulcer as above. Improved today. Continue diabetic shoes for offloading (pt states he is unable to wear any other shoe to work), cont large aperture pad for further offloading. Cont promogran lightly moistened with saline and dry gauze 3x/week. Gently wash with soap and water then flush with saline with dressing changes. Monitor for redness, pus, malodor, warmth, pain, swelling as well as N/V/F/C and go to the ED with these. Discussed importance of tight blood sugar control, adequate nutrition, especially increased protein intake, to promote healing. Discussed importance of tobacco cessation and smoking's effects on wound healing. Pt continues to smoke tobacco against advice. Pt aware today is my last day at the wound center. Return in 1 week, call wound center with questions or problems prior to f/u appt. Cont moderate spandagrip bilateral lower extremities, don in AM and remove before sleep. X-rays reviewed again today.
--- NOTE | 2017-08-04 14:24 | PN.PCM_ITS ---
(1) Non-pressure chronic ulcer of other part of right foot with fat layer exposed Status: Acute Current Visit: No Code(s): L97.512 - Non-pressure chronic ulcer of other part of right foot with fat layer exposed (2) Type 2 diabetes mellitus with foot ulcer Status: Acute Current Visit: No Qualifiers: Diabetes mellitus detention insulin use: unspecified detention insulin use status Code(s): E11.621 - Type 2 diabetes mellitus with foot ulcer; L97.509 - Non- pressure chronic ulcer of other part of unspecified foot with unspecified severity (3) Type 2 diabetes mellitus with diabetic polyneuropathy Status: Chronic Current Visit: No Qualifiers: Diabetes mellitus terminal manager insulin use: unspecified detention insulin use status Code(s): E11.42 - Type 2 diabetes mellitus with diabetic polyneuropathy Type of Wound Date of Service: 08/04/17 Chief Complaint: non-healing right foot ulcer History of Wound: 62 year old diabetic man with PAD and neuropathy presents with non-healing R foot ulcer. Had multiple other ulcerations that have subsequently healed, and actually had underlying osteomyelitis and underwent HBO treatments at [facility] in [place]. Pt is known to me from wound care visits there. He has one ulceration remaining. He is a patient of Dr. Stephenss, and is seeing him next month. Denies pus, malodor, warmth, pain. Denies N/V/F/C. Has been applying promogran every other day. Notes minimal imrovement, so we are going to switch dressings today. 06/09--Has been applying medihoney gel and dry dressing daily. Notes improvement. Denies N/V/F/C. Denies pus, malodor, warmth, pain, swelling. Notes minimal if any drainage--- increase frequency to BID. 06/16--Has been applying medihoney gel and dry dressing twice daily. Notes improvement. Denies N/V/F/C. Denies pus, malodor, warmth, pain, swelling. Notes no drainage---increase frequency from BID to TID. 06/23--Used medihoney until 2-3 days ago when he started Regranex x 12 hours in the AM and lightly moistened gauze dressing at night. Ulcer stable. Denies s/s of acute bacterial infection R foot. 06/30--Using Regranex x 12 hours in the AM and medihoney with dry dressing at night. Ulcer improving. Denies s/s of acute bacterial infection R foot. 07/07--Using Regranex x 12 hours in the AM and x 12 hours at night. Ulcer improving. Denies s/s of acute bacterial infection R foot. 07/14--Using Regranex x 12 hours in the AM and x 12 hours at night. Ulcer very slowly improving. Denies s/s of acute bacterial infection R foot. 07/21--Using Regranex x 12 hours in the AM and x 12 hours at night. Ulcer was slowly improving but now unchanged. Denies s/s of acute bacterial infection R foot. However, we will obtain another x-ray today to assess the underlying bone--ordered today. We will also try promogran 3x/week instead of regranex today. 07/28--Denies s/s of acute bacterial infection R foot. X-rays negative for osteomyelitis of the R 5th met head. Using promogran 3x/week. C/o pain while wearing his shoe--ulcer likely nonhealing due to pressure in shoe, but pt states he is unable to take any time off work and is unable to wear anything but a closed-toe shoe to work. Will try larger aperture pad today. 08/04--Denies s/s of acute bacterial infection R foot. X- rays negative for osteomyelitis of the R 5th met head. Using promogran 3x/week. Pain improved today. Ulcer measurements improved today. Progress of Wound: Improved today. - Physical Exam Vital Signs Temp Pulse Resp BP 96.8 F L 69 18 138/68 H 08/04/17 12:59 08/04/17 12:59 08/04/17 12:59 08/04/17 12:59 General: Alert, Oriented x3, Cooperative, No apparent distress Skin: Ulcer/ Wound - Ulceration R lateral 5th met head with no erythema, no calor, no purulent drainage, no malodor, minimal pain. No clinical signs of acute bacterial infection noted. See wound/edema assessment below. Wound Measurements and Assessment WC - Nurse 1 - General Ulcer Measurement Start: 07/14/17 13:11 Freq: Status: Active Protocol: Activity Type Activity Date Activity User E-Sign Co-Sign Detail Recorded Client Recorded Date Recorded By Document 08/04/17 12:59 [facility] [id number] 08/04/17 13:08 [facility] 08/04/17 12:59 Wound Center Nurse 1 [Ulcer Assessment] 1-right lateral foot -Combined with other wound No -Current Size (cm) - Length 0.3 -Current Size (cm) - Width 0.2 -Current Size (cm) - Depth 0.2 -Total Square Cm 0.06 -Photo Taken No -Epithelialization None Present -Tunneling No -Undermining/Tunneling Yes -Undermining/Tunneling Starts (O' 12 clock) -Undermining/Tunneling Ends (O'clock) 12 -Maximum Distance (cm) 0.2 -Circular Undermining Yes -Exudate Amt Small (1-33%) -Exudate Type Serosanguineous -Wound Margin Distinct, Outline Attached -Granulation Amt Large (67-100%) -Granulation Quality [place] [address] -Slough/Fibrin No -Necrosis Amt Small (1-33%) -Necrotic Tissue Type Adherent Slough -Texture (Zohreh-wound Skin Appearance) Callus Scarring -Moisture (Zohreh-wound Skin Appearance Dry/Scaly ) -Color (Zohreh-wound Skin Appearance) Assessed -Temperature (Zohreh-wound Skin No Abnormality Appearance) (Pt Warm) -Tenderness on Palpation (Zohreh-wound No Skin Appearance) -Ulcer Cleansing Rinsed/ Irrigated with Saline -Foul Odor after Cleansing No -Anesthetic Used 5% Lidocaine Gel [Edema Assessment] -Lower Limb Edema Present Yes -Right Calf (cm) 39 -Right Ankle (cm) 22.4 WC - Nurse 2 - General Ulcer CM Notes Start: 07/14/17 13:11 Freq: Status: Active Protocol: Activity Type Activity Date Activity User E-Sign Co-Sign Detail Recorded Client Recorded Date Recorded By Document 08/04/17 13:29 DV [id number] 08/04/17 13:32 DV 08/04/17 13:29 Wound Center Nurse 2 [Procedure/Treatment] 1-right lateral foot -Time 13:31 -Correct Patient Yes -Correct Side, Site, Position Yes -Correct Procedure Yes -Procedure Performed Yes -Type of Procedure Debridement -Clinical Debridement Subcutaneous -Post Debridement Size (cm) - Length 0.3 -Post Debridement Size (cm) - Width 0.2 -Post Debridement Size (cm) - Depth 0.2 -Total Square Cm 0.06 -Wound/Ulcer Outcome Not Healed -Ulcer Cleansing Rinsed/ Irrigated with Saline -Foul Odor after Cleansing No -Bioengineered Tissue No -Bleeding Controlled with Pressure -Treatment Response Procedure Tolerated Well [See Physician Procedure note for Specifics] Pain Scale: 0-10 Numeric [Pain] -Is Patient Pain Free? Yes Debridement Note Post-Debridement Measurements/Treatment WC - Nurse 2 - General Ulcer CM Notes Start: 07/14/17 13:11 Freq: Status: Active Protocol: Activity Type Activity Date Activity User E-Sign Co-Sign Detail Recorded Client Recorded Date Recorded By Document 07/14/17 13:43 MW [id number] 07/14/17 13:49 MW Document 07/21/17 13:29 MW [id number] 07/21/17 13:30 MW Document 07/28/17 13:26 MW [id number] 07/28/17 13:28 MW Document 08/04/17 13:29 DV [id number] 08/04/17 13:32 DV 07/14/17 07/21/17 07/28/17 13:43 13:29 13:26 Wound Center Nurse 2 1-right lateral foot -Time 13:43 13:30 13:27 -Correct Patient Yes Yes Yes -Correct Side, Site, Position Yes Yes Yes -Correct Procedure Yes Yes Yes -Procedure Performed Yes Yes Yes -Type of Procedure Debridement Debridement Debridement -Clinical Debridement Subcutaneous Subcutaneous Subcutaneous -Post Debridement Size (cm) - Length 0.2 0.3 0.5 -Post Debridement Size (cm) - Width 0.3 0.2 0.3 -Post Debridement Size (cm) - Depth 0.2 0.2 0.2 -Total Square Cm 0.06 0.06 0.15 -Wound/Ulcer Outcome Not Healed Not Healed Not Healed -Ulcer Cleansing Rinsed/ Rinsed/ Rinsed/ Irrigated with Irrigated with Irrigated with Saline Saline Saline -Foul Odor after Cleansing No No No -Bioengineered Tissue No No No -Bleeding Controlled with Pressure Pressure Pressure -Treatment Response Procedure Procedure Procedure Tolerated Well Tolerated Well Tolerated Well Pain Scale: 0-10 Numeric Is Patient Pain Free? Yes Yes Yes 08/04/17 13:29 Wound Center Nurse 2 1-right lateral foot -Time 13:31 -Correct Patient Yes -Correct Side, Site, Position Yes -Correct Procedure Yes -Procedure Performed Yes -Type of Procedure Debridement -Clinical Debridement Subcutaneous -Post Debridement Size (cm) - Length 0.3 -Post Debridement Size (cm) - Width 0.2 -Post Debridement Size (cm) - Depth 0.2 -Total Square Cm 0.06 -Wound/Ulcer Outcome Not Healed -Ulcer Cleansing Rinsed/ Irrigated with Saline -Foul Odor after Cleansing No -Bioengineered Tissue No -Bleeding Controlled with Pressure -Treatment Response Procedure Tolerated Well Pain Scale: 0-10 Numeric Is Patient Pain Free? Yes Wound debrided: R lateral 5th met head Laterality: Right Wound Grade/Stage: Freitas grade 1 full thickness DFU Type of Debridement: Excisional debridement Anesthesia Used: 4% Lidocaine Solution Depth: Down to and including healthy tissue, in the subcutaneous layer Percentage of wound debrided: 100 Instrument Used: #15 blade Tissue Removed: fibrous slough, surrounding thin hyperkeratotic rim Severity: Fat Layer Exposed Amount of bleeding with debridement: Mild Bleeding Controlled with: Pressure, Compression and gauze Patient tolerated procedure well Assessment/Plan Clinical Impression(s) from Imaging Studies Foot X-Ray 07/25/17 11:57 IMPRESSION: Erosive changes of the fifth proximal and distal phalanx. Osteomyelitis is of concern. There is soft tissue swelling and ulceration overlying the fifth digit. Electronically Signed: Humberto Starkey MD at 16:44 EDT , Service support , Assessment: See diagnoses Plan: SQ/excisional debridement of R foot ulcer as above. Improved today. Continue diabetic shoes for offloading (pt states he is unable to wear any other shoe to work), cont large aperture pad for further offloading. Cont promogran lightly moistened with saline and dry gauze 3x/week. Gently wash with soap and water then flush with saline with dressing changes. Monitor for redness, pus, malodor, warmth, pain, swelling as well as N/V/F/C and go to the ED with these. Discussed importance of tight blood sugar control, adequate nutrition, especially increased protein intake, to promote healing. Discussed importance of tobacco cessation and smoking's effects on wound healing. Pt continues to smoke tobacco against advice. Pt aware today is my last day at the wound center. Return in 1 week, call wound center with questions or problems prior to f/u appt. Cont moderate spandagrip bilateral lower extremities , don in AM and remove before sleep. X-rays reviewed again today.
== END 2017-08-10 23:59 ==
LOC: WC 13:00
PROVIDERS: Family Provider Family Medicine; PCP Family Medicine; Visit Provider Podiatrist
DX: E11.621 Type 2 diabetes mellitus with foot ulcer (principal); E11.42 Type 2 diabetes mellitus with diabetic polyneuropathy; L97.512 Non-pressure chronic ulcer of other part of right foot with fat layer exposed; E11.51 Type 2 diabetes mellitus with diabetic peripheral angiopathy without gangrene
CPT/HCPCS: 11042; 73630

== ENCOUNTER 2017-09-03 11:30 | Outpatient (RCR) | payer OTHER, SELFPAY ==
[2017-08-11 00:49] VITALS: PULSE 69; RESP 18; TEMP 36
[2017-08-13 12:31] VITALS: BP 111/59; PULSE 66; RESP 18; TEMP 35.6
--- NOTE | 2017-08-13 15:20 | PCM.WC.PN ---
(1) Non-pressure chronic ulcer of other part of right foot with fat layer exposed Status: Acute Current Visit: No Code(s): L97.512 - Non-pressure chronic ulcer of other part of right foot with fat layer exposed (2) Type 2 diabetes mellitus with foot ulcer Status: Acute Current Visit: No Qualifiers: Code(s): E11.621 - Type 2 diabetes mellitus with foot ulcer; L97.509 - Non-pressure chronic ulcer of other part of unspecified foot with unspecified severity (3) Type 2 diabetes mellitus with diabetic polyneuropathy Status: Chronic Current Visit: No Qualifiers: Code(s): E11.42 - Type 2 diabetes mellitus with diabetic polyneuropathy Type of Wound Date of Service: 08/13/17 Chief Complaint: non-healing right foot ulcer History of Wound: 62 year old diabetic man with PAD and neuropathy presents with non-healing R foot ulcer. Had multiple other ulcerations that have subsequently healed, and actually had underlying osteomyelitis and underwent HBO treatments at [facility] in [place]. Pt is known to me from wound care visits there. He has one ulceration remaining. He is a patient of Dr. Cevallos, and is seeing him next month. Denies pus, malodor, warmth, pain. Denies N/V/F/C. Has been applying promogran every other day. Notes minimal imrovement, so we are going to switch dressings today. 06/09--Has been applying medihoney gel and dry dressing daily. Notes improvement. Denies N/V/F/C. Denies pus, malodor, warmth, pain, swelling. Notes minimal if any drainage---increase frequency to BID. 06/16--Has been applying medihoney gel and dry dressing twice daily. Notes improvement. Denies N/V/F/C. Denies pus, malodor, warmth, pain, swelling. Notes no drainage---increase frequency from BID to TID. 06/23--Used medihoney until 2-3 days ago when he started Regranex x 12 hours in the AM and lightly moistened gauze dressing at night. Ulcer stable. Denies s/s of acute bacterial infection R foot. 06/30--Using Regranex x 12 hours in the AM and medihoney with dry dressing at night. Ulcer improving. Denies s/s of acute bacterial infection R foot. 07/07--Using Regranex x 12 hours in the AM and x 12 hours at night. Ulcer improving. Denies s/s of acute bacterial infection R foot. 07/14--Using Regranex x 12 hours in the AM and x 12 hours at night. Ulcer very slowly improving. Denies s/s of acute bacterial infection R foot. 07/21--Using Regranex x 12 hours in the AM and x 12 hours at night. Ulcer was slowly improving but now unchanged. Denies s/s of acute bacterial infection R foot. However, we will obtain another x-ray today to assess the underlying bone--ordered today. We will also try promogran 3x/week instead of regranex today. 07/28--Denies s/s of acute bacterial infection R foot. X-rays negative for osteomyelitis of the R 5th met head. Using promogran 3x/week. C/o pain while wearing his shoe--ulcer likely nonhealing due to pressure in shoe, but pt states he is unable to take any time off work and is unable to wear anything but a closed-toe shoe to work. Will try larger aperture pad today. 08/04--Denies s/s of acute bacterial infection R foot. X-rays negative for osteomyelitis of the R 5th met head. Using promogran 3x/week. Pain improved today. Ulcer measurements improved today. Progress of Wound: Patietn seen again today for ulcer to right lateral 5th met head. This patient had been seen by Dr. Loera before he left. Patient has been using promogran dressing changes over the last week. He feels he is improving. Patient currently denies any feelings of nausea, vomiting, fever, or chills. - Physical Exam Vital Signs Temp Pulse Resp BP 96.1 F L 66 18 111/59 L 08/13/17 12:31 08/13/17 12:31 08/13/17 12:08/13/17 12:31 General: Alert, Oriented x3, Cooperative, No apparent distress Extremities: Capillary Refill Less than 3 Seconds, No Calf Tenderness - Negative Cesar and Pina sign, Diminished Peripheral Pulses Skin: Ulcer/ Wound - Ulcer appreciated to right lateral fifth metatarsal head with fat layer exposed. Ulcer base is a mixture of adherent slough, fibrin, hyperkeratotic tissue, and some granular tissue to the base. There is no extending erythema, no increase in warmth, no purulence, no malodor, and no increase in pain. Currently there are no clinical signs or symptoms of acute infection appreciated. Wound Measurements and Assessment WC - Nurse 1 - General Ulcer Measurement Start: 08/13/17 12:31 Freq: Status: Active Protocol: Activity Type Activity Date Activity User E-Sign Co-Sign Detail Recorded Client Recorded Date Recorded By Document 08/13/17 12:31 TM [id number] 08/13/17 12:33 TM 08/13/17 12:31 Wound Center Nurse 1 [Ulcer Assessment] 1-right lateral foot -Combined with other wound No -Current Size (cm) - Length 0.2 -Current Size (cm) - Width 0.1 -Current Size (cm) - Depth 0.2 -Total Square Cm 0.02 -Photo Taken No -Epithelialization None Present -Tunneling No -Undermining/Tunneling No -Circular Undermining Yes -Classification - Thickness Full Thickness without Exposed Support Structure -Exudate Amt Small (1-33%) -Exudate Type Serosanguineous -Wound Margin Distinct, Outline Attached -Granulation Amt Large (67-100%) -Granulation Quality [place] -Slough/Fibrin Yes -Necrosis Amt Small (1-33%) -Necrotic Tissue Type Adherent Slough -Structure Exposed Fascia Fat Layer Exposed -Texture (Zohreh-wound Skin Appearance) Callus Scarring -Moisture (Zohreh-wound Skin Appearance Dry/Scaly ) -Color (Zohreh-wound Skin Appearance) Erythema -Temperature (Zohreh-wound Skin No Abnormality Appearance) (Pt Warm) -Tenderness on Palpation (Zohreh-wound No Skin Appearance) -Ulcer Cleansing Rinsed/ Irrigated with Saline -Foul Odor after Cleansing No -Anesthetic Used 4% Lidocaine Solution [Edema Assessment] -Lower Limb Edema Present Yes -Right Calf (cm) 37.0 -Right Ankle (cm) 23.5 WC - Nurse 2 - General Ulcer CM Notes Start: 08/13/17 12:31 Freq: Status: Active Protocol: Activity Type Activity Date Activity User E-Sign Co-Sign Detail Recorded Client Recorded Date Recorded By Document 08/13/17 12:46 MW [id number] 08/13/17 12:55 MW 08/13/17 12:46 Wound Center Nurse 2 [Procedure/Treatment] 1-right lateral foot -Time 12:47 -Correct Patient Yes -Correct Side, Site, Position Yes -Correct Procedure Yes -Procedure Performed Yes -Type of Procedure Debridement -Clinical Debridement Subcutaneous -Post Debridement Size (cm) - Length 0.3 -Post Debridement Size (cm) - Width 0.5 -Post Debridement Size (cm) - Depth 0.2 -Total Square Cm 0.15 -Wound/Ulcer Outcome Not Healed -Ulcer Cleansing Rinsed/ Irrigated with Saline -Foul Odor after Cleansing No -Bioengineered Tissue No -Bleeding Controlled with Pressure -Treatment Response Procedure Tolerated Well [See Physician Procedure note for Specifics] Pain Scale: 0-10 Numeric [Pain] -Is Patient Pain Free? Yes Musculoskeletal: No Tenderness to Palpation of Joints or Extremities Neurological: Motor Exam 5/5 strength throughout - Lower extremity Psych/Mental Status: Normal Affect, Appropriate Debridement Note Post-Debridement Measurements/Treatment WC - Nurse 2 - General Ulcer CM Notes Start: 08/13/17 12:31 Freq: Status: Active Protocol: Activity Type Activity Date Activity User E-Sign Co-Sign Detail Recorded Client Recorded Date Recorded By Document 08/13/17 12:46 MW [id number] 08/13/17 12:55 MW 08/13/17 12:46 Wound Center Nurse 2 1-right lateral foot -Time 12:47 -Correct Patient Yes -Correct Side, Site, Position Yes -Correct Procedure Yes -Procedure Performed Yes -Type of Procedure Debridement -Clinical Debridement Subcutaneous -Post Debridement Size (cm) - Length 0.3 -Post Debridement Size (cm) - Width 0.5 -Post Debridement Size (cm) - Depth 0.2 -Total Square Cm 0.15 -Wound/Ulcer Outcome Not Healed -Ulcer Cleansing Rinsed/ Irrigated with Saline -Foul Odor after Cleansing No -Bioengineered Tissue No -Bleeding Controlled with Pressure -Treatment Response Procedure Tolerated Well Pain Scale: 0-10 Numeric Is Patient Pain Free? Yes Wound debrided: Right lateral fifth metatarsal head Laterality: Right Wound Grade/Stage: 1 Type of Debridement: Excisional debridement Anesthesia Used: 4% Lidocaine Solution Depth: Down to and including healthy tissue, in the subcutaneous layer Percentage of wound debrided: 100 Instrument Used: #15 blade Tissue Removed: Adherent slough, fibrin, hyperkeratotic tissue Severity: Fat Layer Exposed Amount of bleeding with debridement: Mild Bleeding Controlled with: Pressure Patient tolerated procedure well Assessment/Plan Assessment: See diagnoses Plan: Patient was examined and evaluated today, as Dr. Loera no longer works at [facility]. Subcutaneous debridement of right lateral 5th met head ulcer was performed as described in the clinical panel again today. Continue diabetic shoes for offloading (pt states he is unable to wear any other shoe to work), cont large aperture pad for further offloading. Continue promogran lightly moistened with saline and dry gauze 3x/week. Gently wash with soap and water then flush with saline with dressing changes. Monitor for redness, pus, malodor, warmth, pain, swelling as well as N/V/F/C and go to the ED with these. Discussed importance of tight blood sugar control, adequate nutrition, especially increased protein intake, to promote healing. Discussed importance of tobacco cessation and smoking's effects on wound healing. Pt continues to smoke tobacco against advice. Return in 1 week, call wound center with questions or problems prior to f/u appt. Cont moderate spandagrip bilateral lower extremities, don in AM and remove before sleep.
--- NOTE | 2017-08-13 15:29 | PN.PCM_ITS ---
(1) Non-pressure chronic ulcer of other part of right foot with fat layer exposed Status: Acute Current Visit: No Code(s): L97.512 - Non-pressure chronic ulcer of other part of right foot with fat layer exposed (2) Type 2 diabetes mellitus with foot ulcer Status: Acute Current Visit: No Qualifiers: Code(s): E11.621 - Type 2 diabetes mellitus with foot ulcer; L97.509 - Non- pressure chronic ulcer of other part of unspecified foot with unspecified severity (3) Type 2 diabetes mellitus with diabetic polyneuropathy Status: Chronic Current Visit: No Qualifiers: Code(s): E11.42 - Type 2 diabetes mellitus with diabetic polyneuropathy Type of Wound Date of Service: 08/13/17 Chief Complaint: non-healing right foot ulcer History of Wound: 62 year old diabetic man with PAD and neuropathy presents with non-healing R foot ulcer. Had multiple other ulcerations that have subsequently healed, and actually had underlying osteomyelitis and underwent HBO treatments at [facility] in [place]. Pt is known to me from wound care visits there. He has one ulceration remaining. He is a patient of Dr. Cevallos, and is seeing him next month. Denies pus, malodor, warmth, pain. Denies N/V/F/C. Has been applying promogran every other day. Notes minimal imrovement, so we are going to switch dressings today. 06/09--Has been applying medihoney gel and dry dressing daily. Notes improvement. Denies N/V/F/C. Denies pus, malodor, warmth, pain, swelling. Notes minimal if any drainage--- increase frequency to BID. 06/16--Has been applying medihoney gel and dry dressing twice daily. Notes improvement. Denies N/V/F/C. Denies pus, malodor, warmth, pain, swelling. Notes no drainage---increase frequency from BID to TID. 06/23--Used medihoney until 2-3 days ago when he started Regranex x 12 hours in the AM and lightly moistened gauze dressing at night. Ulcer stable. Denies s/s of acute bacterial infection R foot. 06/30--Using Regranex x 12 hours in the AM and medihoney with dry dressing at night. Ulcer improving. Denies s/s of acute bacterial infection R foot. 07/07--Using Regranex x 12 hours in the AM and x 12 hours at night. Ulcer improving. Denies s/s of acute bacterial infection R foot. 07/14--Using Regranex x 12 hours in the AM and x 12 hours at night. Ulcer very slowly improving. Denies s/s of acute bacterial infection R foot. 07/21--Using Regranex x 12 hours in the AM and x 12 hours at night. Ulcer was slowly improving but now unchanged. Denies s/s of acute bacterial infection R foot. However, we will obtain another x-ray today to assess the underlying bone--ordered today. We will also try promogran 3x/week instead of regranex today. 07/28--Denies s/s of acute bacterial infection R foot. X-rays negative for osteomyelitis of the R 5th met head. Using promogran 3x/week. C/o pain while wearing his shoe--ulcer likely nonhealing due to pressure in shoe, but pt states he is unable to take any time off work and is unable to wear anything but a closed-toe shoe to work. Will try larger aperture pad today. 08/04--Denies s/s of acute bacterial infection R foot. X- rays negative for osteomyelitis of the R 5th met head. Using promogran 3x/week. Pain improved today. Ulcer measurements improved today. Progress of Wound: Patietn seen again today for ulcer to right lateral 5th met head. This patient had been seen by Dr. Loera before he left. Patient has been using promogran dressing changes over the last week. He feels he is improving. Patient currently denies any feelings of nausea, vomiting, fever, or chills. - Physical Exam Vital Signs Temp Pulse Resp BP 96.1 F L 66 18 111/59 L 08/13/17 12:31 08/13/17 12:31 08/13/17 12:08/13/17 12:31 General: Alert, Oriented x3, Cooperative, No apparent distress Extremities: Capillary Refill Less than 3 Seconds, No Calf Tenderness - Negative Cesar and Pina sign, Diminished Peripheral Pulses Skin: Ulcer/ Wound - Ulcer appreciated to right lateral fifth metatarsal head with fat layer exposed. Ulcer base is a mixture of adherent slough, fibrin, hyperkeratotic tissue, and some granular tissue to the base. There is no extending erythema, no increase in warmth, no purulence, no malodor, and no increase in pain. Currently there are no clinical signs or symptoms of acute infection appreciated. Wound Measurements and Assessment WC - Nurse 1 - General Ulcer Measurement Start: 08/13/17 12:31 Freq: Status: Active Protocol: Activity Type Activity Date Activity User E-Sign Co-Sign Detail Recorded Client Recorded Date Recorded By Document 08/13/17 12:31 TM [id number] 08/13/17 12:33 TM 08/13/17 12:31 Wound Center Nurse 1 [Ulcer Assessment] 1-right lateral foot -Combined with other wound No -Current Size (cm) - Length 0.2 -Current Size (cm) - Width 0.1 -Current Size (cm) - Depth 0.2 -Total Square Cm 0.02 -Photo Taken No -Epithelialization None Present -Tunneling No -Undermining/Tunneling No -Circular Undermining Yes -Classification - Thickness Full Thickness without Exposed Support Structure -Exudate Amt Small (1-33%) -Exudate Type Serosanguineous -Wound Margin Distinct, Outline Attached -Granulation Amt Large (67-100%) -Granulation Quality Pale [place] -Slough/Fibrin Yes -Necrosis Amt Small (1-33%) -Necrotic Tissue Type Adherent Slough -Structure Exposed Fascia Fat Layer Exposed -Texture (Zohreh-wound Skin Appearance) Callus Scarring -Moisture (Zohreh-wound Skin Appearance Dry/Scaly ) -Color (Zohreh-wound Skin Appearance) Erythema -Temperature (Zohreh-wound Skin No Abnormality Appearance) (Pt Warm) -Tenderness on Palpation (Zohreh-wound No Skin Appearance) -Ulcer Cleansing Rinsed/ Irrigated with Saline -Foul Odor after Cleansing No -Anesthetic Used 4% Lidocaine Solution [Edema Assessment] -Lower Limb Edema Present Yes -Right Calf (cm) 37.0 -Right Ankle (cm) 23.5 WC - Nurse 2 - General Ulcer CM Notes Start: 08/13/17 12:31 Freq: Status: Active Protocol: Activity Type Activity Date Activity User E-Sign Co-Sign Detail Recorded Client Recorded Date Recorded By Document 08/13/17 12:46 MW [id number] 08/13/17 12:55 MW 08/13/17 12:46 Wound Center Nurse 2 [Procedure/Treatment] 1-right lateral foot -Time 12:47 -Correct Patient Yes -Correct Side, Site, Position Yes -Correct Procedure Yes -Procedure Performed Yes -Type of Procedure Debridement -Clinical Debridement Subcutaneous -Post Debridement Size (cm) - Length 0.3 -Post Debridement Size (cm) - Width 0.5 -Post Debridement Size (cm) - Depth 0.2 -Total Square Cm 0.15 -Wound/Ulcer Outcome Not Healed -Ulcer Cleansing Rinsed/ Irrigated with Saline -Foul Odor after Cleansing No -Bioengineered Tissue No -Bleeding Controlled with Pressure -Treatment Response Procedure Tolerated Well [See Physician Procedure note for Specifics] Pain Scale: 0-10 Numeric [Pain] -Is Patient Pain Free? Yes Musculoskeletal: No Tenderness to Palpation of Joints or Extremities Neurological: Motor Exam 5/5 strength throughout - Lower extremity Psych/Mental Status: Normal Affect, Appropriate Debridement Note Post-Debridement Measurements/Treatment WC - Nurse 2 - General Ulcer CM Notes Start: 08/13/17 12:31 Freq: Status: Active Protocol: Activity Type Activity Date Activity User E-Sign Co-Sign Detail Recorded Client Recorded Date Recorded By Document 08/13/17 12:46 MW [id number] 08/13/17 12:55 MW 08/13/17 12:46 Wound Center Nurse 2 1-right lateral foot -Time 12:47 -Correct Patient Yes -Correct Side, Site, Position Yes -Correct Procedure Yes -Procedure Performed Yes -Type of Procedure Debridement -Clinical Debridement Subcutaneous -Post Debridement Size (cm) - Length 0.3 -Post Debridement Size (cm) - Width 0.5 -Post Debridement Size (cm) - Depth 0.2 -Total Square Cm 0.15 -Wound/Ulcer Outcome Not Healed -Ulcer Cleansing Rinsed/ Irrigated with Saline -Foul Odor after Cleansing No -Bioengineered Tissue No -Bleeding Controlled with Pressure -Treatment Response Procedure Tolerated Well Pain Scale: 0-10 Numeric Is Patient Pain Free? Yes Wound debrided: Right lateral fifth metatarsal head Laterality: Right Wound Grade/Stage: 1 Type of Debridement: Excisional debridement Anesthesia Used: 4% Lidocaine Solution Depth: Down to and including healthy tissue, in the subcutaneous layer Percentage of wound debrided: 100 Instrument Used: #15 blade Tissue Removed: Adherent slough, fibrin, hyperkeratotic tissue Severity: Fat Layer Exposed Amount of bleeding with debridement: Mild Bleeding Controlled with: Pressure Patient tolerated procedure well Assessment/Plan Assessment: See diagnoses Plan: Patient was examined and evaluated today, as Dr. Loera no longer works at [facility]. Subcutaneous debridement of right lateral 5th met head ulcer was performed as described in the clinical panel again today. Continue diabetic shoes for offloading (pt states he is unable to wear any other shoe to work), cont large aperture pad for further offloading. Continue promogran lightly moistened with saline and dry gauze 3x/week. Gently wash with soap and water then flush with saline with dressing changes. Monitor for redness, pus, malodor, warmth, pain, swelling as well as N/V/F/C and go to the ED with these. Discussed importance of tight blood sugar control, adequate nutrition, especially increased protein intake, to promote healing. Discussed importance of tobacco cessation and smoking's effects on wound healing. Pt continues to smoke tobacco against advice. Return in 1 week, call wound center with questions or problems prior to f/u appt. Cont moderate spandagrip bilateral lower extremities, don in AM and remove before sleep.
[2017-08-20 10:35] VITALS: BP 131/64; PULSE 64; RESP 18; TEMP 36.2
--- NOTE | 2017-08-20 10:59 | PCM.WC.PN ---
(1) Non-pressure chronic ulcer of other part of right foot with fat layer exposed Status: Acute Current Visit: No Code(s): L97.512 - Non-pressure chronic ulcer of other part of right foot with fat layer exposed (2) Type 2 diabetes mellitus with foot ulcer Status: Acute Current Visit: No Qualifiers: Code(s): E11.621 - Type 2 diabetes mellitus with foot ulcer; L97.509 - Non-pressure chronic ulcer of other part of unspecified foot with unspecified severity (3) Type 2 diabetes mellitus with diabetic polyneuropathy Status: Chronic Current Visit: No Qualifiers: Code(s): E11.42 - Type 2 diabetes mellitus with diabetic polyneuropathy Type of Wound Date of Service: 08/20/17 Chief Complaint: non-healing right foot ulcer History of Wound: 62 year old diabetic man with PAD and neuropathy presents with non-healing R foot ulcer. Had multiple other ulcerations that have subsequently healed, and actually had underlying osteomyelitis and underwent HBO treatments at [facility] [place] in [place]. Pt is known to me from wound care visits there. He has one ulceration remaining. He is a patient of Dr. Cevallos, and is seeing him next month. Denies pus, malodor, warmth, pain. Denies N/V/F/C. Has been applying promogran every other day. Notes minimal imrovement, so we are going to switch dressings today. 06/09--Has been applying medihoney gel and dry dressing daily. Notes improvement. Denies N/V/F/C. Denies pus, malodor, warmth, pain, swelling. Notes minimal if any drainage---increase frequency to BID. 06/16--Has been applying medihoney gel and dry dressing twice daily. Notes improvement. Denies N/V/F/C. Denies pus, malodor, warmth, pain, swelling. Notes no drainage---increase frequency from BID to TID. 06/23--Used medihoney until 2-3 days ago when he started Regranex x 12 hours in the AM and lightly moistened gauze dressing at night. Ulcer stable. Denies s/s of acute bacterial infection R foot. 06/30--Using Regranex x 12 hours in the AM and medihoney with dry dressing at night. Ulcer improving. Denies s/s of acute bacterial infection R foot. 07/07--Using Regranex x 12 hours in the AM and x 12 hours at night. Ulcer improving. Denies s/s of acute bacterial infection R foot. 07/14--Using Regranex x 12 hours in the AM and x 12 hours at night. Ulcer very slowly improving. Denies s/s of acute bacterial infection R foot. 07/21--Using Regranex x 12 hours in the AM and x 12 hours at night. Ulcer was slowly improving but now unchanged. Denies s/s of acute bacterial infection R foot. However, we will obtain another x-ray today to assess the underlying bone--ordered today. We will also try promogran 3x/week instead of regranex today. 07/28--Denies s/s of acute bacterial infection R foot. X-rays negative for osteomyelitis of the R 5th met head. Using promogran 3x/week. C/o pain while wearing his shoe--ulcer likely nonhealing due to pressure in shoe, but pt states he is unable to take any time off work and is unable to wear anything but a closed-toe shoe to work. Will try larger aperture pad today. 08/04--Denies s/s of acute bacterial infection R foot. X-rays negative for osteomyelitis of the R 5th met head. Using promogran 3x/week. Pain improved today. Ulcer measurements improved today. Progress of Wound: Patietn seen again today for ulcer to right lateral 5th met head. This patient had been seen by Dr. Loera before he left. Patient has been using promogran dressing changes over the last week. Patient is hopeful to be healed very soon. Patient currently denies any feelings of nausea, vomiting, fever, or chills. - Physical Exam Vital Signs Temp Pulse Resp BP 97.1 F L 64 18 131/64 H 08/20/17 10:35 08/20/17 10:35 08/20/17 10:35 08/20/17 10:35 General: Alert, Oriented x3, Cooperative, No apparent distress Extremities: Capillary Refill Less than 3 Seconds, No Calf Tenderness - Negative Cesar and Pina sign, Diminished Peripheral Pulses Skin: Ulcer/ Wound - Ulcer 2 right lateral fifth met head with fat layer exposed. Area appears similar in appearance and size since last week. Base continues to be a mixture of adherent slough, fibrin, hyperkeratotic tissue, granular tissue with some very slight undermining appreciated. There is no extending erythema, no increase in warmth, no purulence, no malodor, and no pain. There are no clinical signs or symptoms of acute infection appreciated at this time. Wound Measurements and Assessment WC - Nurse 1 - General Ulcer Measurement Start: 08/13/17 12:31 Freq: Status: Active Protocol: Activity Type Activity Date Activity User E-Sign Co-Sign Detail Recorded Client Recorded Date Recorded By Document 08/20/17 10:35 [id number] 08/20/17 10:37 TM 08/20/17 10:35 Wound Center Nurse 1 [Ulcer Assessment] 1-right lateral foot -Combined with other wound No -Current Size (cm) - Length 0.2 -Current Size (cm) - Width 0.1 -Current Size (cm) - Depth 0.1 -Total Square Cm 0.02 -Date of Last Picture (Recall this 08/20/17 field) -Photo Taken Yes -Epithelialization Small 1-33% -Tunneling No -Undermining/Tunneling Yes -Undermining/Tunneling Starts (O' 6 clock) -Undermining/Tunneling Ends (O'clock) 12 -Maximum Distance (cm) 0.2 -Circular Undermining No -Classification - Thickness Full Thickness without Exposed Support Structure -Exudate Amt Small (1-33%) -Exudate Type Serous -Wound Margin Distinct, Outline Attached -Granulation Amt Small (1-33%) -Granulation Quality Pale [place] -Slough/Fibrin Yes -Necrosis Amt Small (1-33%) -Necrotic Tissue Type Adherent Slough -Structure Exposed Fascia Fat Layer Exposed -Texture (Zohreh-wound Skin Appearance) Callus Scarring -Moisture (Zohreh-wound Skin Appearance Dry/Scaly ) -Color (Zohreh-wound Skin Appearance) [place] -Temperature (Zohreh-wound Skin No Abnormality Appearance) (Pt Warm) -Tenderness on Palpation (Zohreh-wound No Skin Appearance) -Ulcer Cleansing Rinsed/ Irrigated with Saline -Foul Odor after Cleansing No -Anesthetic Used 4% Lidocaine Solution [Edema Assessment] -Lower Limb Edema Present Yes -Right Calf (cm) 36.0 -Right Ankle (cm) 22.0 WC - Nurse 2 - General Ulcer CM Notes Start: 08/13/17 12:31 Freq: Status: Active Protocol: Activity Type Activity Date Activity User E-Sign Co-Sign Detail Recorded Client Recorded Date Recorded By Document 08/20/17 10:49 MW [id number] 08/20/17 10:53 MW 08/20/17 10:49 Wound Center Nurse 2 [Procedure/Treatment] 1-right lateral foot -Time 10:49 -Correct Patient Yes -Correct Side, Site, Position Yes -Correct Procedure Yes -Procedure Performed Yes -Type of Procedure Debridement -Clinical Debridement Subcutaneous -Post Debridement Size (cm) - Length 0.4 -Post Debridement Size (cm) - Width 0.3 -Post Debridement Size (cm) - Depth 0.2 -Total Square Cm 0.12 -Wound/Ulcer Outcome Not Healed -Ulcer Cleansing Rinsed/ Irrigated with Saline -Foul Odor after Cleansing No -Bioengineered Tissue No -Bleeding Controlled with Pressure -Treatment Response Procedure Tolerated Well [See Physician Procedure note for Specifics] Pain Scale: 0-10 Numeric [Pain] -Is Patient Pain Free? Yes Musculoskeletal: No Tenderness to Palpation of Joints or Extremities Neurological: Motor Exam 5/5 strength throughout Psych/Mental Status: Normal Affect, Appropriate Debridement Note Post-Debridement Measurements/Treatment WC - Nurse 2 - General Ulcer CM Notes Start: 08/13/17 12:31 Freq: Status: Active Protocol: Activity Type Activity Date Activity User E-Sign Co-Sign Detail Recorded Client Recorded Date Recorded By Document 08/13/17 12:46 MW [id number] 08/13/17 12:55 MW Document 08/20/17 10:49 MW [id number] 08/20/17 10:53 MW 08/13/17 08/20/17 12:46 10:49 Wound Center Nurse 2 1-right lateral foot -Time 12:47 10:49 -Correct Patient Yes Yes -Correct Side, Site, Position Yes Yes -Correct Procedure Yes Yes -Procedure Performed Yes Yes -Type of Procedure Debridement Debridement -Clinical Debridement Subcutaneous Subcutaneous -Post Debridement Size (cm) - Length 0.3 0.4 -Post Debridement Size (cm) - Width 0.5 0.3 -Post Debridement Size (cm) - Depth 0.2 0.2 -Total Square Cm 0.15 0.12 -Wound/Ulcer Outcome Not Healed Not Healed -Ulcer Cleansing Rinsed/ Rinsed/ Irrigated with Irrigated with Saline Saline -Foul Odor after Cleansing No No -Bioengineered Tissue No No -Bleeding Controlled with Pressure Pressure -Treatment Response Procedure Procedure Tolerated Well Tolerated Well Pain Scale: 0-10 Numeric Is Patient Pain Free? Yes Yes Wound debrided: Right lateral fifth metatarsal head Laterality: Right Wound Grade/Stage: 1 Type of Debridement: Excisional debridement Anesthesia Used: 4% Lidocaine Solution Depth: Down to and including healthy tissue, in the subcutaneous layer Percentage of wound debrided: 100 Instrument Used: #15 blade, - - Tissue nipper Tissue Removed: Adherent slough, fibrin, hyperkeratotic tissue Severity: Fat Layer Exposed Amount of bleeding with debridement: Mild Bleeding Controlled with: Pressure Patient tolerated procedure well Assessment/Plan Assessment: See diagnoses Plan: Patient was examined and evaluated today. Subcutaneous debridement of right lateral 5th met head ulcer was performed as described in the clinical panel again today. Continue diabetic shoes for offloading, continue large aperture pad for further offloading surrounding the ulcer site. We will switch dressing today to hydrogel to base followed by adaptic and a dry sterile dressing. Dressing to be changed in this manner daily. Gently wash with soap and water then flush with saline with dressing changes. Monitor for redness, pus, malodor, warmth, pain, swelling as well as N/V/F/C and go to the ED with these. Discussed importance of tight blood sugar control, adequate nutrition, especially increased protein intake, to promote healing. Discussed importance of tobacco cessation and smoking's effects on wound healing. Pt continues to smoke tobacco against advice. Return in 1 week, call wound center with questions or problems prior to f/u appt. Continue moderate spandagrip bilateral lower extremities, don in AM and remove before sleep.
--- NOTE | 2017-08-20 11:05 | PN.PCM_ITS ---
(1) Non-pressure chronic ulcer of other part of right foot with fat layer exposed Status: Acute Current Visit: No Code(s): L97.512 - Non-pressure chronic ulcer of other part of right foot with fat layer exposed (2) Type 2 diabetes mellitus with foot ulcer Status: Acute Current Visit: No Qualifiers: Code(s): E11.621 - Type 2 diabetes mellitus with foot ulcer; L97.509 - Non- pressure chronic ulcer of other part of unspecified foot with unspecified severity (3) Type 2 diabetes mellitus with diabetic polyneuropathy Status: Chronic Current Visit: No Qualifiers: Code(s): E11.42 - Type 2 diabetes mellitus with diabetic polyneuropathy Type of Wound Date of Service: 08/20/17 Chief Complaint: non-healing right foot ulcer History of Wound: 62 year old diabetic man with PAD and neuropathy presents with non-healing R foot ulcer. Had multiple other ulcerations that have subsequently healed, and actually had underlying osteomyelitis and underwent HBO treatments at [facility] in [place]. Pt is known to me from wound care visits there. He has one ulceration remaining. He is a patient of Dr. Cevallos, and is seeing him next month. Denies pus, malodor, warmth, pain. Denies N/V/F/C. Has been applying promogran every other day. Notes minimal imrovement, so we are going to switch dressings today. 06/09--Has been applying medihoney gel and dry dressing daily. Notes improvement. Denies N/V/F/C. Denies pus, malodor, warmth, pain, swelling. Notes minimal if any drainage--- increase frequency to BID. 06/16--Has been applying medihoney gel and dry dressing twice daily. Notes improvement. Denies N/V/F/C. Denies pus, malodor, warmth, pain, swelling. Notes no drainage---increase frequency from BID to TID. 06/23--Used medihoney until 2-3 days ago when he started Regranex x 12 hours in the AM and lightly moistened gauze dressing at night. Ulcer stable. Denies s/s of acute bacterial infection R foot. 06/30--Using Regranex x 12 hours in the AM and medihoney with dry dressing at night. Ulcer improving. Denies s/s of acute bacterial infection R foot. 07/07--Using Regranex x 12 hours in the AM and x 12 hours at night. Ulcer improving. Denies s/s of acute bacterial infection R foot. 07/14--Using Regranex x 12 hours in the AM and x 12 hours at night. Ulcer very slowly improving. Denies s/s of acute bacterial infection R foot. 07/21--Using Regranex x 12 hours in the AM and x 12 hours at night. Ulcer was slowly improving but now unchanged. Denies s/s of acute bacterial infection R foot. However, we will obtain another x-ray today to assess the underlying bone--ordered today. We will also try promogran 3x/week instead of regranex today. 07/28--Denies s/s of acute bacterial infection R foot. X-rays negative for osteomyelitis of the R 5th met head. Using promogran 3x/week. C/o pain while wearing his shoe--ulcer likely nonhealing due to pressure in shoe, but pt states he is unable to take any time off work and is unable to wear anything but a closed-toe shoe to work. Will try larger aperture pad today. 08/04--Denies s/s of acute bacterial infection R foot. X- rays negative for osteomyelitis of the R 5th met head. Using promogran 3x/week. Pain improved today. Ulcer measurements improved today. Progress of Wound: Patietn seen again today for ulcer to right lateral 5th met head. This patient had been seen by Dr. Loera before he left. Patient has been using promogran dressing changes over the last week. Patient is hopeful to be healed very soon. Patient currently denies any feelings of nausea, vomiting, fever, or chills. - Physical Exam Vital Signs Temp Pulse Resp BP 97.1 F L 64 18 131/64 H 08/20/17 10:35 08/20/17 10:35 08/20/17 10:35 08/20/17 10:35 General: Alert, Oriented x3, Cooperative, No apparent distress Extremities: Capillary Refill Less than 3 Seconds, No Calf Tenderness - Negative Cesar and Pina sign, Diminished Peripheral Pulses Skin: Ulcer/ Wound - Ulcer 2 right lateral fifth met head with fat layer exposed. Area appears similar in appearance and size since last week. Base continues to be a mixture of adherent slough, fibrin, hyperkeratotic tissue, granular tissue with some very slight undermining appreciated. There is no extending erythema, no increase in warmth, no purulence, no malodor, and no pain. There are no clinical signs or symptoms of acute infection appreciated at this time. Wound Measurements and Assessment WC - Nurse 1 - General Ulcer Measurement Start: 08/13/17 12:31 Freq: Status: Active Protocol: Activity Type Activity Date Activity User E-Sign Co-Sign Detail Recorded Client Recorded Date Recorded By Document 08/20/17 10:35 [id number] 08/20/17 10:37 TM 08/20/17 10:35 Wound Center Nurse 1 [Ulcer Assessment] 1-right lateral foot -Combined with other wound No -Current Size (cm) - Length 0.2 -Current Size (cm) - Width 0.1 -Current Size (cm) - Depth 0.1 -Total Square Cm 0.02 -Date of Last Picture (Recall this 08/20/17 field) -Photo Taken Yes -Epithelialization Small 1-33% -Tunneling No -Undermining/Tunneling Yes -Undermining/Tunneling Starts (O' 6 clock) -Undermining/Tunneling Ends (O'clock) 12 -Maximum Distance (cm) 0.2 -Circular Undermining No -Classification - Thickness Full Thickness without Exposed Support Structure -Exudate Amt Small (1-33%) -Exudate Type Serous -Wound Margin Distinct, Outline Attached -Granulation Amt Small (1-33%) -Granulation Quality Pale Magnet -Slough/Fibrin Yes -Necrosis Amt Small (1-33%) -Necrotic Tissue Type Adherent Slough -Structure Exposed Fascia Fat Layer Exposed -Texture (Zohreh-wound Skin Appearance) Callus Scarring -Moisture (Zohreh-wound Skin Appearance Dry/Scaly ) -Color (Zohreh-wound Skin Appearance) Palor -Temperature (Zohreh-wound Skin No Abnormality Appearance) (Pt Warm) -Tenderness on Palpation (Zohreh-wound No Skin Appearance) -Ulcer Cleansing Rinsed/ Irrigated with Saline -Foul Odor after Cleansing No -Anesthetic Used 4% Lidocaine Solution [Edema Assessment] -Lower Limb Edema Present Yes -Right Calf (cm) 36.0 -Right Ankle (cm) 22.0 WC - Nurse 2 - General Ulcer CM Notes Start: 08/13/17 12:31 Freq: Status: Active Protocol: Activity Type Activity Date Activity User E-Sign Co-Sign Detail Recorded Client Recorded Date Recorded By Document 08/20/17 10:49 MW [id number] 08/20/17 10:53 MW 08/20/17 10:49 Wound Center Nurse 2 [Procedure/Treatment] 1-right lateral foot -Time 10:49 -Correct Patient Yes -Correct Side, Site, Position Yes -Correct Procedure Yes -Procedure Performed Yes -Type of Procedure Debridement -Clinical Debridement Subcutaneous -Post Debridement Size (cm) - Length 0.4 -Post Debridement Size (cm) - Width 0.3 -Post Debridement Size (cm) - Depth 0.2 -Total Square Cm 0.12 -Wound/Ulcer Outcome Not Healed -Ulcer Cleansing Rinsed/ Irrigated with Saline -Foul Odor after Cleansing No -Bioengineered Tissue No -Bleeding Controlled with Pressure -Treatment Response Procedure Tolerated Well [See Physician Procedure note for Specifics] Pain Scale: 0-10 Numeric [Pain] -Is Patient Pain Free? Yes Musculoskeletal: No Tenderness to Palpation of Joints or Extremities Neurological: Motor Exam 5/5 strength throughout Psych/Mental Status: Normal Affect, Appropriate Debridement Note Post-Debridement Measurements/Treatment WC - Nurse 2 - General Ulcer CM Notes Start: 08/13/17 12:31 Freq: Status: Active Protocol: Activity Type Activity Date Activity User E-Sign Co-Sign Detail Recorded Client Recorded Date Recorded By Document 08/13/17 12:46 MW [id number] 08/13/17 12:55 MW Document 08/20/17 10:49 MW [id number] 08/20/17 10:53 MW 08/13/17 08/20/17 12:46 10:49 Wound Center Nurse 2 1-right lateral foot -Time 12:47 10:49 -Correct Patient Yes Yes -Correct Side, Site, Position Yes Yes -Correct Procedure Yes Yes -Procedure Performed Yes Yes -Type of Procedure Debridement Debridement -Clinical Debridement Subcutaneous Subcutaneous -Post Debridement Size (cm) - Length 0.3 0.4 -Post Debridement Size (cm) - Width 0.5 0.3 -Post Debridement Size (cm) - Depth 0.2 0.2 -Total Square Cm 0.15 0.12 -Wound/Ulcer Outcome Not Healed Not Healed -Ulcer Cleansing Rinsed/ Rinsed/ Irrigated with Irrigated with Saline Saline -Foul Odor after Cleansing No No -Bioengineered Tissue No No -Bleeding Controlled with Pressure Pressure -Treatment Response Procedure Procedure Tolerated Well Tolerated Well Pain Scale: 0-10 Numeric Is Patient Pain Free? Yes Yes Wound debrided: Right lateral fifth metatarsal head Laterality: Right Wound Grade/Stage: 1 Type of Debridement: Excisional debridement Anesthesia Used: 4% Lidocaine Solution Depth: Down to and including healthy tissue, in the subcutaneous layer Percentage of wound debrided: 100 Instrument Used: #15 blade, - - Tissue nipper Tissue Removed: Adherent slough, fibrin, hyperkeratotic tissue Severity: Fat Layer Exposed Amount of bleeding with debridement: Mild Bleeding Controlled with: Pressure Patient tolerated procedure well Assessment/Plan Assessment: See diagnoses Plan: Patient was examined and evaluated today. Subcutaneous debridement of right lateral 5th met head ulcer was performed as described in the clinical panel again today. Continue diabetic shoes for offloading, continue large aperture pad for further offloading surrounding the ulcer site. We will switch dressing today to hydrogel to base followed by adaptic and a dry sterile dressing. Dressing to be changed in this manner daily. Gently wash with soap and water then flush with saline with dressing changes. Monitor for redness, pus, malodor, warmth, pain, swelling as well as N/V/F/C and go to the ED with these. Discussed importance of tight blood sugar control, adequate nutrition, especially increased protein intake, to promote healing. Discussed importance of tobacco cessation and smoking's effects on wound healing. Pt continues to smoke tobacco against advice. Return in 1 week, call wound center with questions or problems prior to f/u appt. Continue moderate spandagrip bilateral lower extremities, don in AM and remove before sleep.
[2017-08-27 11:31] VITALS: BP 106/59; PULSE 72; RESP 18; TEMP 36.1
--- NOTE | 2017-08-27 12:53 | PCM.WC.PN ---
(1) Non-pressure chronic ulcer of other part of right foot with fat layer exposed Status: Acute Current Visit: No Code(s): L97.512 - Non-pressure chronic ulcer of other part of right foot with fat layer exposed (2) Type 2 diabetes mellitus with foot ulcer Status: Acute Current Visit: No Qualifiers: Code(s): E11.621 - Type 2 diabetes mellitus with foot ulcer; L97.509 - Non-pressure chronic ulcer of other part of unspecified foot with unspecified severity (3) Type 2 diabetes mellitus with diabetic polyneuropathy Status: Chronic Current Visit: No Qualifiers: Code(s): E11.42 - Type 2 diabetes mellitus with diabetic polyneuropathy Type of Wound Date of Service: 08/27/17 Chief Complaint: non-healing right foot ulcer History of Wound: 62 year old diabetic man with PAD and neuropathy presents with non-healing R foot ulcer. Had multiple other ulcerations that have subsequently healed, and actually had underlying osteomyelitis and underwent HBO treatments at [facility] in [place]. Pt is known to me from wound care visits there. He has one ulceration remaining. He is a patient of Dr. Cevallos, and is seeing him next month. Denies pus, malodor, warmth, pain. Denies N/V/F/C. Has been applying promogran every other day. Notes minimal imrovement, so we are going to switch dressings today. 06/09--Has been applying medihoney gel and dry dressing daily. Notes improvement. Denies N/V/F/C. Denies pus, malodor, warmth, pain, swelling. Notes minimal if any drainage---increase frequency to BID. 06/16--Has been applying medihoney gel and dry dressing twice daily. Notes improvement. Denies N/V/F/C. Denies pus, malodor, warmth, pain, swelling. Notes no drainage---increase frequency from BID to TID. 06/23--Used medihoney until 2-3 days ago when he started Regranex x 12 hours in the AM and lightly moistened gauze dressing at night. Ulcer stable. Denies s/s of acute bacterial infection R foot. 06/30--Using Regranex x 12 hours in the AM and medihoney with dry dressing at night. Ulcer improving. Denies s/s of acute bacterial infection R foot. 07/07--Using Regranex x 12 hours in the AM and x 12 hours at night. Ulcer improving. Denies s/s of acute bacterial infection R foot. 07/14--Using Regranex x 12 hours in the AM and x 12 hours at night. Ulcer very slowly improving. Denies s/s of acute bacterial infection R foot. 07/21--Using Regranex x 12 hours in the AM and x 12 hours at night. Ulcer was slowly improving but now unchanged. Denies s/s of acute bacterial infection R foot. However, we will obtain another x-ray today to assess the underlying bone--ordered today. We will also try promogran 3x/week instead of regranex today. 07/28--Denies s/s of acute bacterial infection R foot. X-rays negative for osteomyelitis of the R 5th met head. Using promogran 3x/week. C/o pain while wearing his shoe--ulcer likely nonhealing due to pressure in shoe, but pt states he is unable to take any time off work and is unable to wear anything but a closed-toe shoe to work. Will try larger aperture pad today. 08/04--Denies s/s of acute bacterial infection R foot. X-rays negative for osteomyelitis of the R 5th met head. Using promogran 3x/week. Pain improved today. Ulcer measurements improved today. Progress of Wound: Patietn seen again today for ulcer to right lateral 5th met head. This patient had been seen by Dr. Loera in the past before he left. Patient has been using collagen dressing changes over the last week as well as wearing offloading padding. He says he did not do the best with wearing the offloading padding since last visit. Patient currently denies any feelings of nausea, vomiting, fever, or chills. - Physical Exam Vital Signs Temp Pulse Resp BP 96.9 F L 72 18 106/59 L 08/27/17 11:31 08/27/17 11:31 08/27/17 11:31 08/27/17 11:31 General: Alert, Oriented x3, Cooperative, No apparent distress Extremities: Capillary Refill Less than 3 Seconds, No Calf Tenderness - Negative Cesar and Pina sign, Diminished Peripheral Pulses Skin: Ulcer/ Wound - Ulcer to the right lateral fifth met head fat layer exposed still appreciated. Ulcer appears mostly unchanged in appearance and size since last week. The base of the ulcer continues to be a mixture of adherent slough, fibrin, hyperkeratotic tissue as well as some granular tissue. There continues to be slight undermining noted. There is no extending erythema no significant increase in warmth, no purulence, no malodor, and no significant pain. Wound Measurements and Assessment - Nurse 1 - General Ulcer Measurement Start: 08/13/17 12:31 Freq: Status: Active Protocol: Activity Type Activity Date Activity User E-Sign Co-Sign Detail Recorded Client Recorded Date Recorded By Document 08/27/17 11:31 [facility] [id number] 08/27/17 11:37 [facility] 08/27/17 11:31 Wound Center Nurse 1 [Ulcer Assessment] 1-right lateral foot -Combined with other wound No -Current Size (cm) - Length 0.4 -Current Size (cm) - Width 0.1 -Current Size (cm) - Depth 0.3 -Total Square Cm 0.04 -Photo Taken No -Epithelialization None Present -Tunneling No -Undermining/Tunneling No -Circular Undermining No -Exudate Amt Small (1-33%) -Exudate Type Serous -Wound Margin Distinct, Outline Attached -Granulation Amt None Present (0 %) -Slough/Fibrin No -Necrosis Amt Large (67-100%) -Necrotic Tissue Type Adherent Slough -Structure Exposed N/A -Texture (Zohreh-wound Skin Appearance) Callus -Moisture (Zohreh-wound Skin Appearance Dry/Scaly ) -Color (Zohreh-wound Skin Appearance) Assessed -Temperature (Zohreh-wound Skin No Abnormality Appearance) (Pt Warm) -Tenderness on Palpation (Zohreh-wound No Skin Appearance) -Ulcer Cleansing Rinsed/ Irrigated with Saline -Foul Odor after Cleansing No -Anesthetic Used 5% Lidocaine Gel [Edema Assessment] -Lower Limb Edema Present No -Right Calf (cm) 39 -Right Ankle (cm) 23 - Nurse 2 - General Ulcer CM Notes Start: 08/13/17 12:31 Freq: Status: Active Protocol: Activity Type Activity Date Activity User E-Sign Co-Sign Detail Recorded Client Recorded Date Recorded By Document 08/27/17 12:27 [id number] 08/27/17 12:36 08/27/17 12:27 Wound Center Nurse 2 [Procedure/Treatment] 1-right lateral foot -Time 12:33 -Correct Patient Yes -Correct Side, Site, Position Yes -Correct Procedure Yes -Procedure Performed Yes -Type of Procedure Debridement -Clinical Debridement Subcutaneous -Post Debridement Size (cm) - Length 0.4 -Post Debridement Size (cm) - Width 0.2 -Post Debridement Size (cm) - Depth 0.2 -Total Square Cm 0.08 -Wound/Ulcer Outcome Not Healed -Ulcer Cleansing Rinsed/ Irrigated with Saline -Foul Odor after Cleansing No -Bioengineered Tissue No -Topical Lidocaine (%) 4 -Lidocaine (ml) 5 -Bleeding Controlled with NA -Treatment Response Procedure Tolerated Well [See Physician Procedure note for Specifics] Pain Scale: 0-10 Numeric [Pain] -Is Patient Pain Free? Yes Musculoskeletal: No Tenderness to Palpation of Joints or Extremities Neurological: Motor Exam 5/5 strength throughout - Lower extremity Psych/Mental Status: Normal Affect, Appropriate Debridement Note Post-Debridement Measurements/Treatment WC - Nurse 2 - General Ulcer CM Notes Start: 08/13/17 12:31 Freq: Status: Active Protocol: Activity Type Activity Date Activity User E-Sign Co-Sign Detail Recorded Client Recorded Date Recorded By Document 08/13/17 12:46 MW [id number] 08/13/17 12:55 MW Document 08/20/17 10:49 MW [id number] 08/20/17 10:53 MW Document 08/27/17 12:27 JS [id number] 08/27/17 12:36 JS 08/13/17 08/20/17 08/27/17 12:46 10:49 12:27 Wound Center Nurse 2 1-right lateral foot -Time 12:47 10:49 12:33 -Correct Patient Yes Yes Yes -Correct Side, Site, Position Yes Yes Yes -Correct Procedure Yes Yes Yes -Procedure Performed Yes Yes Yes -Type of Procedure Debridement Debridement Debridement -Clinical Debridement Subcutaneous Subcutaneous Subcutaneous -Post Debridement Size (cm) - Length 0.3 0.4 0.4 -Post Debridement Size (cm) - Width 0.5 0.3 0.2 -Post Debridement Size (cm) - Depth 0.2 0.2 0.2 -Total Square Cm 0.15 0.12 0.08 -Wound/Ulcer Outcome Not Healed Not Healed Not Healed -Ulcer Cleansing Rinsed/ Rinsed/ Rinsed/ Irrigated with Irrigated with Irrigated with Saline Saline Saline -Foul Odor after Cleansing No No No -Bioengineered Tissue No No No -Topical Lidocaine (%) 4 -Lidocaine (ml) 5 -Bleeding Controlled with Pressure Pressure NA -Treatment Response Procedure Procedure Procedure Tolerated Well Tolerated Well Tolerated Well Pain Scale: 0-10 Numeric Is Patient Pain Free? Yes Yes Yes Wound debrided: Right lateral fifth metatarsal head Laterality: Right Wound Grade/Stage: 1 Type of Debridement: Excisional debridement Anesthesia Used: 4% Lidocaine Solution Depth: Down to and including healthy tissue, in the subcutaneous layer Percentage of wound debrided: 100 Instrument Used: #15 blade Tissue Removed: Adherent slough, fibrin, hyperkeratotic tissue Severity: Fat Layer Exposed Amount of bleeding with debridement: Mild Bleeding Controlled with: Pressure Patient tolerated procedure well Assessment/Plan Assessment: See diagnoses Plan: Patient was examined and evaluated today. Subcutaneous debridement of right lateral 5th met head ulcer was performed as described in the clinical panel again today. He is to continue with diabetic shoes for offloading, continue large aperture pad for further offloading surrounding the ulcer site. I discussed the importance of making sure he is wearing this offloading padding in the appropriate area. Hydrogel applied to base followed by adaptic and a dry sterile dressing. Dressing to be changed in this manner daily. Gently wash with soap and water then flush with saline with dressing changes. Patient was educated on all signs and symptoms of local and systemic infection and was instructed to go to the emergency room if any of these are noted.. Discussed importance of tight blood sugar control, adequate nutrition, especially increased protein intake, to promote healing. Discussed importance of tobacco cessation and smoking's effects on wound healing. Pt continues to smoke tobacco against advice. Continue moderate spandagrip bilateral lower extremities. Patient will follow back up in clinic in 1 week, or sooner if needed.
--- NOTE | 2017-08-27 13:00 | PN.PCM_ITS ---
(1) Non-pressure chronic ulcer of other part of right foot with fat layer exposed Status: Acute Current Visit: No Code(s): L97.512 - Non-pressure chronic ulcer of other part of right foot with fat layer exposed (2) Type 2 diabetes mellitus with foot ulcer Status: Acute Current Visit: No Qualifiers: Code(s): E11.621 - Type 2 diabetes mellitus with foot ulcer; L97.509 - Non- pressure chronic ulcer of other part of unspecified foot with unspecified severity (3) Type 2 diabetes mellitus with diabetic polyneuropathy Status: Chronic Current Visit: No Qualifiers: Code(s): E11.42 - Type 2 diabetes mellitus with diabetic polyneuropathy Type of Wound Date of Service: 08/27/17 Chief Complaint: non-healing right foot ulcer History of Wound: 62 year old diabetic man with PAD and neuropathy presents with non-healing R foot ulcer. Had multiple other ulcerations that have subsequently healed, and actually had underlying osteomyelitis and underwent HBO treatments at [facility] in [place]. Pt is known to me from wound care visits there. He has one ulceration remaining. He is a patient of Dr. Cevallos, and is seeing him next month. Denies pus, malodor, warmth, pain. Denies N/V/F/C. Has been applying promogran every other day. Notes minimal imrovement, so we are going to switch dressings today. 06/09--Has been applying medihoney gel and dry dressing daily. Notes improvement. Denies N/V/F/C. Denies pus, malodor, warmth, pain, swelling. Notes minimal if any drainage--- increase frequency to BID. 06/16--Has been applying medihoney gel and dry dressing twice daily. Notes improvement. Denies N/V/F/C. Denies pus, malodor, warmth, pain, swelling. Notes no drainage---increase frequency from BID to TID. 06/23--Used medihoney until 2-3 days ago when he started Regranex x 12 hours in the AM and lightly moistened gauze dressing at night. Ulcer stable. Denies s/s of acute bacterial infection R foot. 06/30--Using Regranex x 12 hours in the AM and medihoney with dry dressing at night. Ulcer improving. Denies s/s of acute bacterial infection R foot. 07/07--Using Regranex x 12 hours in the AM and x 12 hours at night. Ulcer improving. Denies s/s of acute bacterial infection R foot. 07/14--Using Regranex x 12 hours in the AM and x 12 hours at night. Ulcer very slowly improving. Denies s/s of acute bacterial infection R foot. 07/21--Using Regranex x 12 hours in the AM and x 12 hours at night. Ulcer was slowly improving but now unchanged. Denies s/s of acute bacterial infection R foot. However, we will obtain another x-ray today to assess the underlying bone--ordered today. We will also try promogran 3x/week instead of regranex today. 07/28--Denies s/s of acute bacterial infection R foot. X-rays negative for osteomyelitis of the R 5th met head. Using promogran 3x/week. C/o pain while wearing his shoe--ulcer likely nonhealing due to pressure in shoe, but pt states he is unable to take any time off work and is unable to wear anything but a closed-toe shoe to work. Will try larger aperture pad today. 08/04--Denies s/s of acute bacterial infection R foot. X- rays negative for osteomyelitis of the R 5th met head. Using promogran 3x/week. Pain improved today. Ulcer measurements improved today. Progress of Wound: Patietn seen again today for ulcer to right lateral 5th met head. This patient had been seen by Dr. Loera in the past before he left. Patient has been using collagen dressing changes over the last week as well as wearing offloading padding. He says he did not do the best with wearing the offloading padding since last visit. Patient currently denies any feelings of nausea, vomiting, fever, or chills. - Physical Exam Vital Signs Temp Pulse Resp BP 96.9 F L 72 18 106/59 L 08/27/17 11:31 08/27/17 11:31 08/27/17 11:31 08/27/17 11:31 General: Alert, Oriented x3, Cooperative, No apparent distress Extremities: Capillary Refill Less than 3 Seconds, No Calf Tenderness - Negative Cesar and Pina sign, Diminished Peripheral Pulses Skin: Ulcer/ Wound - Ulcer to the right lateral fifth met head fat layer exposed still appreciated. Ulcer appears mostly unchanged in appearance and size since last week. The base of the ulcer continues to be a mixture of adherent slough, fibrin, hyperkeratotic tissue as well as some granular tissue. There continues to be slight undermining noted. There is no extending erythema no significant increase in warmth, no purulence, no malodor, and no significant pain. Wound Measurements and Assessment - Nurse 1 - General Ulcer Measurement Start: 08/13/17 12:31 Freq: Status: Active Protocol: Activity Type Activity Date Activity User E-Sign Co-Sign Detail Recorded Client Recorded Date Recorded By Document 08/27/17 11:31 [facility] [id number] 08/27/17 11:37 [facility] 08/27/17 11:31 Wound Center Nurse 1 [Ulcer Assessment] 1-right lateral foot -Combined with other wound No -Current Size (cm) - Length 0.4 -Current Size (cm) - Width 0.1 -Current Size (cm) - Depth 0.3 -Total Square Cm 0.04 -Photo Taken No -Epithelialization None Present -Tunneling No -Undermining/Tunneling No -Circular Undermining No -Exudate Amt Small (1-33%) -Exudate Type Serous -Wound Margin Distinct, Outline Attached -Granulation Amt None Present (0 %) -Slough/Fibrin No -Necrosis Amt Large (67-100%) -Necrotic Tissue Type Adherent Slough -Structure Exposed N/A -Texture (Zohreh-wound Skin Appearance) Callus -Moisture (Zohreh-wound Skin Appearance Dry/Scaly ) -Color (Zohreh-wound Skin Appearance) Assessed -Temperature (Zohreh-wound Skin No Abnormality Appearance) (Pt Warm) -Tenderness on Palpation (Zohreh-wound No Skin Appearance) -Ulcer Cleansing Rinsed/ Irrigated with Saline -Foul Odor after Cleansing No -Anesthetic Used 5% Lidocaine Gel [Edema Assessment] -Lower Limb Edema Present No -Right Calf (cm) 39 -Right Ankle (cm) 23 - Nurse 2 - General Ulcer CM Notes Start: 08/13/17 12:31 Freq: Status: Active Protocol: Activity Type Activity Date Activity User E-Sign Co-Sign Detail Recorded Client Recorded Date Recorded By Document 08/27/17 12:27 [id number] 08/27/17 12:36 08/27/17 12:27 Wound Center Nurse 2 [Procedure/Treatment] 1-right lateral foot -Time 12:33 -Correct Patient Yes -Correct Side, Site, Position Yes -Correct Procedure Yes -Procedure Performed Yes -Type of Procedure Debridement -Clinical Debridement Subcutaneous -Post Debridement Size (cm) - Length 0.4 -Post Debridement Size (cm) - Width 0.2 -Post Debridement Size (cm) - Depth 0.2 -Total Square Cm 0.08 -Wound/Ulcer Outcome Not Healed -Ulcer Cleansing Rinsed/ Irrigated with Saline -Foul Odor after Cleansing No -Bioengineered Tissue No -Topical Lidocaine (%) 4 -Lidocaine (ml) 5 -Bleeding Controlled with NA -Treatment Response Procedure Tolerated Well [See Physician Procedure note for Specifics] Pain Scale: 0-10 Numeric [Pain] -Is Patient Pain Free? Yes Musculoskeletal: No Tenderness to Palpation of Joints or Extremities Neurological: Motor Exam 5/5 strength throughout - Lower extremity Psych/Mental Status: Normal Affect, Appropriate Debridement Note Post-Debridement Measurements/Treatment WC - Nurse 2 - General Ulcer CM Notes Start: 08/13/17 12:31 Freq: Status: Active Protocol: Activity Type Activity Date Activity User E-Sign Co-Sign Detail Recorded Client Recorded Date Recorded By Document 08/13/17 12:46 MW [id number] 08/13/17 12:55 MW Document 08/20/17 10:49 MW [id number] 08/20/17 10:53 MW Document 08/27/17 12:27 JS [id number] 08/27/17 12:36 JS 08/13/17 08/20/17 08/27/17 12:46 10:49 12:27 Wound Center Nurse 2 1-right lateral foot -Time 12:47 10:49 12:33 -Correct Patient Yes Yes Yes -Correct Side, Site, Position Yes Yes Yes -Correct Procedure Yes Yes Yes -Procedure Performed Yes Yes Yes -Type of Procedure Debridement Debridement Debridement -Clinical Debridement Subcutaneous Subcutaneous Subcutaneous -Post Debridement Size (cm) - Length 0.3 0.4 0.4 -Post Debridement Size (cm) - Width 0.5 0.3 0.2 -Post Debridement Size (cm) - Depth 0.2 0.2 0.2 -Total Square Cm 0.15 0.12 0.08 -Wound/Ulcer Outcome Not Healed Not Healed Not Healed -Ulcer Cleansing Rinsed/ Rinsed/ Rinsed/ Irrigated with Irrigated with Irrigated with Saline Saline Saline -Foul Odor after Cleansing No No No -Bioengineered Tissue No No No -Topical Lidocaine (%) 4 -Lidocaine (ml) 5 -Bleeding Controlled with Pressure Pressure NA -Treatment Response Procedure Procedure Procedure Tolerated Well Tolerated Well Tolerated Well Pain Scale: 0-10 Numeric Is Patient Pain Free? Yes Yes Yes Wound debrided: Right lateral fifth metatarsal head Laterality: Right Wound Grade/Stage: 1 Type of Debridement: Excisional debridement Anesthesia Used: 4% Lidocaine Solution Depth: Down to and including healthy tissue, in the subcutaneous layer Percentage of wound debrided: 100 Instrument Used: #15 blade Tissue Removed: Adherent slough, fibrin, hyperkeratotic tissue Severity: Fat Layer Exposed Amount of bleeding with debridement: Mild Bleeding Controlled with: Pressure Patient tolerated procedure well Assessment/Plan Assessment: See diagnoses Plan: Patient was examined and evaluated today. Subcutaneous debridement of right lateral 5th met head ulcer was performed as described in the clinical panel again today. He is to continue with diabetic shoes for offloading, continue large aperture pad for further offloading surrounding the ulcer site. I discussed the importance of making sure he is wearing this offloading padding in the appropriate area. Hydrogel applied to base followed by adaptic and a dry sterile dressing. Dressing to be changed in this manner daily. Gently wash with soap and water then flush with saline with dressing changes. Patient was educated on all signs and symptoms of local and systemic infection and was instructed to go to the emergency room if any of these are noted.. Discussed importance of tight blood sugar control, adequate nutrition, especially increased protein intake, to promote healing. Discussed importance of tobacco cessation and smoking's effects on wound healing. Pt continues to smoke tobacco against advice. Continue moderate spandagrip bilateral lower extremities. Patient will follow back up in clinic in 1 week, or sooner if needed.
[2017-09-03 12:12] VITALS: RESP 18; TEMP 36.6
--- NOTE | 2017-09-03 15:19 | PCM.WC.PN ---
(1) Non-pressure chronic ulcer of other part of right foot with fat layer exposed Status: Acute Current Visit: No Code(s): L97.512 - Non-pressure chronic ulcer of other part of right foot with fat layer exposed (2) Type 2 diabetes mellitus with foot ulcer Status: Acute Current Visit: No Qualifiers: Code(s): E11.621 - Type 2 diabetes mellitus with foot ulcer; L97.509 - Non-pressure chronic ulcer of other part of unspecified foot with unspecified severity (3) Type 2 diabetes mellitus with diabetic polyneuropathy Status: Chronic Current Visit: No Qualifiers: Code(s): E11.42 - Type 2 diabetes mellitus with diabetic polyneuropathy Type of Wound Date of Service: 09/03/17 Chief Complaint: non-healing right foot ulcer History of Wound: 62 year old diabetic man with PAD and neuropathy presents with non-healing R foot ulcer. Had multiple other ulcerations that have subsequently healed, and actually had underlying osteomyelitis and underwent HBO treatments at [facility] in [place]. Pt is known to me from wound care visits there. He has one ulceration remaining. He is a patient of Dr. Cevallos, and is seeing him next month. Denies pus, malodor, warmth, pain. Denies N/V/F/C. Has been applying promogran every other day. Notes minimal imrovement, so we are going to switch dressings today. 06/09--Has been applying medihoney gel and dry dressing daily. Notes improvement. Denies N/V/F/C. Denies pus, malodor, warmth, pain, swelling. Notes minimal if any drainage---increase frequency to BID. 06/16--Has been applying medihoney gel and dry dressing twice daily. Notes improvement. Denies N/V/F/C. Denies pus, malodor, warmth, pain, swelling. Notes no drainage---increase frequency from BID to TID. 06/23--Used medihoney until 2-3 days ago when he started Regranex x 12 hours in the AM and lightly moistened gauze dressing at night. Ulcer stable. Denies s/s of acute bacterial infection R foot. 06/30--Using Regranex x 12 hours in the AM and medihoney with dry dressing at night. Ulcer improving. Denies s/s of acute bacterial infection R foot. 07/07--Using Regranex x 12 hours in the AM and x 12 hours at night. Ulcer improving. Denies s/s of acute bacterial infection R foot. 07/14--Using Regranex x 12 hours in the AM and x 12 hours at night. Ulcer very slowly improving. Denies s/s of acute bacterial infection R foot. 07/21--Using Regranex x 12 hours in the AM and x 12 hours at night. Ulcer was slowly improving but now unchanged. Denies s/s of acute bacterial infection R foot. However, we will obtain another x-ray today to assess the underlying bone--ordered today. We will also try promogran 3x/week instead of regranex today. 07/28--Denies s/s of acute bacterial infection R foot. X-rays negative for osteomyelitis of the R 5th met head. Using promogran 3x/week. C/o pain while wearing his shoe--ulcer likely nonhealing due to pressure in shoe, but pt states he is unable to take any time off work and is unable to wear anything but a closed-toe shoe to work. Will try larger aperture pad today. 08/04--Denies s/s of acute bacterial infection R foot. X-rays negative for osteomyelitis of the R 5th met head. Using promogran 3x/week. Pain improved today. Ulcer measurements improved today. Progress of Wound: Hank was seen again today for ulcer to right lateral 5th met head. This patient had been seen by Dr. Loera in the past before he left. Patient has been using hydrogel dressing changes over the last week as well as wearing offloading padding. He says he still has some trouble at times placing the offloading pad in the correct area. Patient currently denies any feelings of nausea, vomiting, fever, or chills. - Physical Exam Vital Signs Temp Pulse Resp BP 97.8 F 72 18 106/59 L 09/03/17 12:12 08/27/17 11:31 09/03/17 12:12 08/27/17 11:31 General: Alert, Oriented x3, Cooperative, No apparent distress Extremities: Capillary Refill Less than 3 Seconds, No Calf Tenderness - Negative Cesar and Pina sign, Diminished Peripheral Pulses Skin: Ulcer/ Wound - Ulcer to the right lateral fifth met head with fat layer exposed. Ulcer appears very slightly improved since last week. The base of the ulcer continues to be a mixture of adherent slough, fibrin, hyperkeratotic tissue as well as some granular tissue. There is a very small amount of undermining appreciated. There continues to be no extending erythema, no purulence, no increase in warmth, no malodor, no probing to bone. Wound Measurements and Assessment WC - Nurse 1 - General Ulcer Measurement Start: 08/13/17 12:31 Freq: Status: Active Protocol: Activity Type Activity Date Activity User E-Sign Co-Sign Detail Recorded Client Recorded Date Recorded By Document 09/03/17 12:12 KIP [id number] 09/03/17 12:18 KIP 09/03/17 12:12 Wound Center Nurse 1 [Ulcer Assessment] 1-right lateral foot -Combined with other wound No -Current Size (cm) - Length 0.2 -Current Size (cm) - Width 0.2 -Current Size (cm) - Depth 0.2 -Total Square Cm 0.04 -Photo Taken No -Epithelialization Large 67-100% -Tunneling No -Undermining/Tunneling No -Circular Undermining No -Exudate Amt None Present (0 %) -Wound Margin Indistinct, Non -Visible -Granulation Amt None Present (0 %) -Slough/Fibrin Yes -Necrosis Amt Large (67-100%) -Necrotic Tissue Type Adherent Slough -Structure Exposed N/A -Texture (Zohreh-wound Skin Appearance) Assessed Callus -Moisture (Zohreh-wound Skin Appearance Assessed ) Dry/Scaly -Color (Zohreh-wound Skin Appearance) Assessed -Temperature (Zohreh-wound Skin No Abnormality Appearance) (Pt Warm) -Tenderness on Palpation (Zohreh-wound No Skin Appearance) -Ulcer Cleansing Rinsed/ Irrigated with Saline -Foul Odor after Cleansing No -Anesthetic Used 4% Lidocaine Solution [Edema Assessment] -Lower Limb Edema Present No WC - Nurse 2 - General Ulcer CM Notes Start: 08/13/17 12:31 Freq: Status: Active Protocol: Activity Type Activity Date Activity User E-Sign Co-Sign Detail Recorded Client Recorded Date Recorded By Document 09/03/17 12:44 MIKE [id number] 09/03/17 12:46 MIKE 09/03/17 12:44 Wound Center Nurse 2 [Procedure/Treatment] 1-right lateral foot -Time 12:44 -Correct Patient Yes -Correct Side, Site, Position Yes -Correct Procedure Yes -Procedure Performed Yes -Type of Procedure Debridement -Clinical Debridement Selective -Post Debridement Size (cm) - Length 0.3 -Post Debridement Size (cm) - Width 0.1 -Post Debridement Size (cm) - Depth 0.2 -Total Square Cm 0.03 -Wound/Ulcer Outcome Not Healed -Ulcer Cleansing Rinsed/ Irrigated with Saline -Foul Odor after Cleansing No -Bioengineered Tissue No -Topical Lidocaine (%) 4 -Lidocaine (ml) 5 -Bleeding Controlled with NA -Treatment Response Procedure Tolerated Well [See Physician Procedure note for Specifics] Pain Scale: 0-10 Numeric [Pain] -Is Patient Pain Free? Yes Musculoskeletal: No Tenderness to Palpation of Joints or Extremities Neurological: Motor Exam 5/5 strength throughout - Lower extremity Psych/Mental Status: Normal Affect, Appropriate Debridement Note Post-Debridement Measurements/Treatment WC - Nurse 2 - General Ulcer CM Notes Start: 08/13/17 12:31 Freq: Status: Active Protocol: Activity Type Activity Date Activity User E-Sign Co-Sign Detail Recorded Client Recorded Date Recorded By Document 08/13/17 12:46 MW [id number] 08/13/17 12:55 MW Document 08/20/17 10:49 MW [id number] 08/20/17 10:53 MW Document 08/27/17 12:27 JS [id number] 08/27/17 12:36 JS Document 09/03/17 12:44 JS [id number] 09/03/17 12:46 JS 08/13/17 08/20/17 08/27/17 12:46 10:49 12:27 Wound Center Nurse 2 1-right lateral foot -Time 12:47 10:49 12:33 -Correct Patient Yes Yes Yes -Correct Side, Site, Position Yes Yes Yes -Correct Procedure Yes Yes Yes -Procedure Performed Yes Yes Yes -Type of Procedure Debridement Debridement Debridement -Clinical Debridement Subcutaneous Subcutaneous Subcutaneous -Post Debridement Size (cm) - Length 0.3 0.4 0.4 -Post Debridement Size (cm) - Width 0.5 0.3 0.2 -Post Debridement Size (cm) - Depth 0.2 0.2 0.2 -Total Square Cm 0.15 0.12 0.08 -Wound/Ulcer Outcome Not Healed Not Healed Not Healed -Ulcer Cleansing Rinsed/ Rinsed/ Rinsed/ Irrigated with Irrigated with Irrigated with Saline Saline Saline -Foul Odor after Cleansing No No No -Bioengineered Tissue No No No -Topical Lidocaine (%) 4 -Lidocaine (ml) 5 -Bleeding Controlled with Pressure Pressure NA -Treatment Response Procedure Procedure Procedure Tolerated Well Tolerated Well Tolerated Well Pain Scale: 0-10 Numeric Is Patient Pain Free? Yes Yes Yes 09/03/17 12:44 Wound Center Nurse 2 1-right lateral foot -Time 12:44 -Correct Patient Yes -Correct Side, Site, Position Yes -Correct Procedure Yes -Procedure Performed Yes -Type of Procedure Debridement -Clinical Debridement Selective -Post Debridement Size (cm) - Length 0.3 -Post Debridement Size (cm) - Width 0.1 -Post Debridement Size (cm) - Depth 0.2 -Total Square Cm 0.03 -Wound/Ulcer Outcome Not Healed -Ulcer Cleansing Rinsed/ Irrigated with Saline -Foul Odor after Cleansing No -Bioengineered Tissue No -Topical Lidocaine (%) 4 -Lidocaine (ml) 5 -Bleeding Controlled with NA -Treatment Response Procedure Tolerated Well Pain Scale: 0-10 Numeric Is Patient Pain Free? Yes Wound debrided: Right lateral fifth metatarsal head Laterality: Right Type of Debridement: Selective debridement Anesthesia Used: 4% Lidocaine Solution Depth: in the subcutaneous layer Percentage of wound debrided: 100 Instrument Used: #15 blade Tissue Removed: Adherent slough, fibrin, hyperkeratotic tissue Severity: Fat Layer Exposed Amount of bleeding with debridement: Mild Bleeding Controlled with: Pressure Patient tolerated procedure well Assessment/Plan Assessment: See diagnoses Plan: Patient was examined and evaluated today. Selective debridement of right lateral 5th met head ulcer was performed as described in the clinical panel again today. He is to continue with diabetic shoes for offloading, continue large aperture pad for further offloading surrounding the ulcer site. I discussed the importance of making sure he is wearing this offloading padding in the appropriate area. Hydrogel applied to base followed by adaptic and a dry sterile dressing. Dressing to be changed in this manner daily. Gently wash with soap and water then flush with saline with dressing changes. Patient was educated on all signs and symptoms of local and systemic infection and was instructed to go to the emergency room if any of these are noted.. Discussed importance of tight blood sugar control, adequate nutrition, especially increased protein intake, to promote healing. Discussed importance of tobacco cessation and smoking's effects on wound healing. Pt continues to smoke tobacco against advice. Continue moderate spandagrip bilateral lower extremities. Patient will follow back up in clinic in 1 week, or sooner if needed.
--- NOTE | 2017-09-03 15:23 | PN.PCM_ITS ---
(1) Non-pressure chronic ulcer of other part of right foot with fat layer exposed Status: Acute Current Visit: No Code(s): L97.512 - Non-pressure chronic ulcer of other part of right foot with fat layer exposed (2) Type 2 diabetes mellitus with foot ulcer Status: Acute Current Visit: No Qualifiers: Code(s): E11.621 - Type 2 diabetes mellitus with foot ulcer; L97.509 - Non- pressure chronic ulcer of other part of unspecified foot with unspecified severity (3) Type 2 diabetes mellitus with diabetic polyneuropathy Status: Chronic Current Visit: No Qualifiers: Code(s): E11.42 - Type 2 diabetes mellitus with diabetic polyneuropathy Type of Wound Date of Service: 09/03/17 Chief Complaint: non-healing right foot ulcer History of Wound: 62 year old diabetic man with PAD and neuropathy presents with non-healing R foot ulcer. Had multiple other ulcerations that have subsequently healed, and actually had underlying osteomyelitis and underwent HBO treatments at [facility] in [place]. Pt is known to me from wound care visits there. He has one ulceration remaining. He is a patient of Dr. Cevallos, and is seeing him next month. Denies pus, malodor, warmth, pain. Denies N/V/F/C. Has been applying promogran every other day. Notes minimal imrovement, so we are going to switch dressings today. 06/09--Has been applying medihoney gel and dry dressing daily. Notes improvement. Denies N/V/F/C. Denies pus, malodor, warmth, pain, swelling. Notes minimal if any drainage--- increase frequency to BID. 06/16--Has been applying medihoney gel and dry dressing twice daily. Notes improvement. Denies N/V/F/C. Denies pus, malodor, warmth, pain, swelling. Notes no drainage---increase frequency from BID to TID. 06/23--Used medihoney until 2-3 days ago when he started Regranex x 12 hours in the AM and lightly moistened gauze dressing at night. Ulcer stable. Denies s/s of acute bacterial infection R foot. 06/30--Using Regranex x 12 hours in the AM and medihoney with dry dressing at night. Ulcer improving. Denies s/s of acute bacterial infection R foot. 07/07--Using Regranex x 12 hours in the AM and x 12 hours at night. Ulcer improving. Denies s/s of acute bacterial infection R foot. 07/14--Using Regranex x 12 hours in the AM and x 12 hours at night. Ulcer very slowly improving. Denies s/s of acute bacterial infection R foot. 07/21--Using Regranex x 12 hours in the AM and x 12 hours at night. Ulcer was slowly improving but now unchanged. Denies s/s of acute bacterial infection R foot. However, we will obtain another x-ray today to assess the underlying bone--ordered today. We will also try promogran 3x/week instead of regranex today. 07/28--Denies s/s of acute bacterial infection R foot. X-rays negative for osteomyelitis of the R 5th met head. Using promogran 3x/week. C/o pain while wearing his shoe--ulcer likely nonhealing due to pressure in shoe, but pt states he is unable to take any time off work and is unable to wear anything but a closed-toe shoe to work. Will try larger aperture pad today. 08/04--Denies s/s of acute bacterial infection R foot. X- rays negative for osteomyelitis of the R 5th met head. Using promogran 3x/week. Pain improved today. Ulcer measurements improved today. Progress of Wound: Hank was seen again today for ulcer to right lateral 5th met head. This patient had been seen by Dr. Loera in the past before he left. Patient has been using hydrogel dressing changes over the last week as well as wearing offloading padding. He says he still has some trouble at times placing the offloading pad in the correct area. Patient currently denies any feelings of nausea, vomiting, fever, or chills. - Physical Exam Vital Signs Temp Pulse Resp BP 97.8 F 72 18 106/59 L 09/03/17 12:12 08/27/17 11:31 09/03/17 12:12 08/27/17 11:31 General: Alert, Oriented x3, Cooperative, No apparent distress Extremities: Capillary Refill Less than 3 Seconds, No Calf Tenderness - Negative Cesar and Pina sign, Diminished Peripheral Pulses Skin: Ulcer/ Wound - Ulcer to the right lateral fifth met head with fat layer exposed. Ulcer appears very slightly improved since last week. The base of the ulcer continues to be a mixture of adherent slough, fibrin, hyperkeratotic tissue as well as some granular tissue. There is a very small amount of undermining appreciated. There continues to be no extending erythema, no purulence, no increase in warmth, no malodor, no probing to bone. Wound Measurements and Assessment WC - Nurse 1 - General Ulcer Measurement Start: 08/13/17 12:31 Freq: Status: Active Protocol: Activity Type Activity Date Activity User E-Sign Co-Sign Detail Recorded Client Recorded Date Recorded By Document 09/03/17 12:12 KIP [id number] 09/03/17 12:18 KIP 09/03/17 12:12 Wound Center Nurse 1 [Ulcer Assessment] 1-right lateral foot -Combined with other wound No -Current Size (cm) - Length 0.2 -Current Size (cm) - Width 0.2 -Current Size (cm) - Depth 0.2 -Total Square Cm 0.04 -Photo Taken No -Epithelialization Large 67-100% -Tunneling No -Undermining/Tunneling No -Circular Undermining No -Exudate Amt None Present (0 %) -Wound Margin Indistinct, Non -Visible -Granulation Amt None Present (0 %) -Slough/Fibrin Yes -Necrosis Amt Large (67-100%) -Necrotic Tissue Type Adherent Slough -Structure Exposed N/A -Texture (Zohreh-wound Skin Appearance) Assessed Callus -Moisture (Zohreh-wound Skin Appearance Assessed ) Dry/Scaly -Color (Zohreh-wound Skin Appearance) Assessed -Temperature (Zohreh-wound Skin No Abnormality Appearance) (Pt Warm) -Tenderness on Palpation (Zohreh-wound No Skin Appearance) -Ulcer Cleansing Rinsed/ Irrigated with Saline -Foul Odor after Cleansing No -Anesthetic Used 4% Lidocaine Solution [Edema Assessment] -Lower Limb Edema Present No WC - Nurse 2 - General Ulcer CM Notes Start: 08/13/17 12:31 Freq: Status: Active Protocol: Activity Type Activity Date Activity User E-Sign Co-Sign Detail Recorded Client Recorded Date Recorded By Document 09/03/17 12:44 MIKE [id number] 09/03/17 12:46 MIKE 09/03/17 12:44 Wound Center Nurse 2 [Procedure/Treatment] 1-right lateral foot -Time 12:44 -Correct Patient Yes -Correct Side, Site, Position Yes -Correct Procedure Yes -Procedure Performed Yes -Type of Procedure Debridement -Clinical Debridement Selective -Post Debridement Size (cm) - Length 0.3 -Post Debridement Size (cm) - Width 0.1 -Post Debridement Size (cm) - Depth 0.2 -Total Square Cm 0.03 -Wound/Ulcer Outcome Not Healed -Ulcer Cleansing Rinsed/ Irrigated with Saline -Foul Odor after Cleansing No -Bioengineered Tissue No -Topical Lidocaine (%) 4 -Lidocaine (ml) 5 -Bleeding Controlled with NA -Treatment Response Procedure Tolerated Well [See Physician Procedure note for Specifics] Pain Scale: 0-10 Numeric [Pain] -Is Patient Pain Free? Yes Musculoskeletal: No Tenderness to Palpation of Joints or Extremities Neurological: Motor Exam 5/5 strength throughout - Lower extremity Psych/Mental Status: Normal Affect, Appropriate Debridement Note Post-Debridement Measurements/Treatment WC - Nurse 2 - General Ulcer CM Notes Start: 08/13/17 12:31 Freq: Status: Active Protocol: Activity Type Activity Date Activity User E-Sign Co-Sign Detail Recorded Client Recorded Date Recorded By Document 08/13/17 12:46 MW [id number] 08/13/17 12:55 MW Document 08/20/17 10:49 MW [id number] 08/20/17 10:53 MW Document 08/27/17 12:27 JS [id number] 08/27/17 12:36 JS Document 09/03/17 12:44 JS [id number] 09/03/17 12:46 JS 08/13/17 08/20/17 08/27/17 12:46 10:49 12:27 Wound Center Nurse 2 1-right lateral foot -Time 12:47 10:49 12:33 -Correct Patient Yes Yes Yes -Correct Side, Site, Position Yes Yes Yes -Correct Procedure Yes Yes Yes -Procedure Performed Yes Yes Yes -Type of Procedure Debridement Debridement Debridement -Clinical Debridement Subcutaneous Subcutaneous Subcutaneous -Post Debridement Size (cm) - Length 0.3 0.4 0.4 -Post Debridement Size (cm) - Width 0.5 0.3 0.2 -Post Debridement Size (cm) - Depth 0.2 0.2 0.2 -Total Square Cm 0.15 0.12 0.08 -Wound/Ulcer Outcome Not Healed Not Healed Not Healed -Ulcer Cleansing Rinsed/ Rinsed/ Rinsed/ Irrigated with Irrigated with Irrigated with Saline Saline Saline -Foul Odor after Cleansing No No No -Bioengineered Tissue No No No -Topical Lidocaine (%) 4 -Lidocaine (ml) 5 -Bleeding Controlled with Pressure Pressure NA -Treatment Response Procedure Procedure Procedure Tolerated Well Tolerated Well Tolerated Well Pain Scale: 0-10 Numeric Is Patient Pain Free? Yes Yes Yes 09/03/17 12:44 Wound Center Nurse 2 1-right lateral foot -Time 12:44 -Correct Patient Yes -Correct Side, Site, Position Yes -Correct Procedure Yes -Procedure Performed Yes -Type of Procedure Debridement -Clinical Debridement Selective -Post Debridement Size (cm) - Length 0.3 -Post Debridement Size (cm) - Width 0.1 -Post Debridement Size (cm) - Depth 0.2 -Total Square Cm 0.03 -Wound/Ulcer Outcome Not Healed -Ulcer Cleansing Rinsed/ Irrigated with Saline -Foul Odor after Cleansing No -Bioengineered Tissue No -Topical Lidocaine (%) 4 -Lidocaine (ml) 5 -Bleeding Controlled with NA -Treatment Response Procedure Tolerated Well Pain Scale: 0-10 Numeric Is Patient Pain Free? Yes Wound debrided: Right lateral fifth metatarsal head Laterality: Right Type of Debridement: Selective debridement Anesthesia Used: 4% Lidocaine Solution Depth: in the subcutaneous layer Percentage of wound debrided: 100 Instrument Used: #15 blade Tissue Removed: Adherent slough, fibrin, hyperkeratotic tissue Severity: Fat Layer Exposed Amount of bleeding with debridement: Mild Bleeding Controlled with: Pressure Patient tolerated procedure well Assessment/Plan Assessment: See diagnoses Plan: Patient was examined and evaluated today. Selective debridement of right lateral 5th met head ulcer was performed as described in the clinical panel again today. He is to continue with diabetic shoes for offloading, continue large aperture pad for further offloading surrounding the ulcer site. I discussed the importance of making sure he is wearing this offloading padding in the appropriate area. Hydrogel applied to base followed by adaptic and a dry sterile dressing. Dressing to be changed in this manner daily. Gently wash with soap and water then flush with saline with dressing changes. Patient was educated on all signs and symptoms of local and systemic infection and was instructed to go to the emergency room if any of these are noted.. Discussed importance of tight blood sugar control, adequate nutrition, especially increased protein intake, to promote healing. Discussed importance of tobacco cessation and smoking's effects on wound healing. Pt continues to smoke tobacco against advice. Continue moderate spandagrip bilateral lower extremities. Patient will follow back up in clinic in 1 week, or sooner if needed.
== END 2017-09-10 23:59 ==
LOC: WC 11:30
PROVIDERS: Family Provider Family Medicine; PCP Family Medicine; Visit Provider Podiatrist
DX: E11.621 Type 2 diabetes mellitus with foot ulcer (principal); L97.512 Non-pressure chronic ulcer of other part of right foot with fat layer exposed; E11.42 Type 2 diabetes mellitus with diabetic polyneuropathy; I73.9 Peripheral vascular disease, unspecified
CPT/HCPCS: 11042; 97597